=== PATIENT | female | born 1935 | race Caucasian/White ===

== ENCOUNTER 2018-07-23 14:00 | Inpatient (IN) | payer MEDICARE ==
[~2018-07-23] VITALS: Ht 170.2 cm; Wt 75.0 kg
[2018-07-23] MEDS ORDERED: MAGNESIUM HYDROXIDE 2,400 MG/30 ML ORAL.SUSP. PO PRN (17:15)
[2018-07-23] MEDS ORDERED: MAG HYDROX/AL HYDROX/SIMETH 30 ML ORAL.SUSP PO PRN (17:15)
[2018-07-23] MEDS ORDERED: METHYL SALICYLATE/MENTHOL TOPICAL OINTMENT 29GM TUBE. TP PRN (17:15)
[2018-07-23 17:30] VITALS: BP 148/88
[2018-07-23 18:11] LABS: BASO % 1 % (0-3); EOS # 0.1 x10^3/uL (0.0-0.7); EOS % 2 % (0-3); HEMATOCRIT 36.4 % (36.0-47.0); HEMOGLOBIN 12.2 g/dL (12.0-15.5); LYMPH # 1.3 x10^3/uL (1.0-4.8); LYMPH % 23 % (24-48); MEAN CORPUSCULAR HEMOGLOBIN 33 pg (25-35); MEAN CORPUSCULAR HGB CONC 33 g/dL (31-37); MEAN CORPUSCULAR VOLUME 99 fL (79-100); MONO # 1.2 x10^3/uL (0.0-1.1); MONO % 20 % (0-9); NEUT # 3.2 x10^3uL (1.8-7.7); NEUT % 55 % (31-73); PLATELET COUNT 210 x10^3/uL (140-400); RED BLOOD COUNT 3.69 x10^6/uL (3.50-5.40); RED CELL DISTRIBUTION WIDTH 13.3 % (11.5-14.5); WHITE BLOOD COUNT 5.8 x10^3/uL (4.0-11.0)
[2018-07-23 18:25] LABS: ALBUMIN 3.1 g/dL (3.4-5.0); ALBUMIN/GLOBULIN RATIO 0.7 (1.0-1.7); CALCIUM 9.7 mg/dL (8.5-10.1); CREATININE 1.3 mg/dL (0.6-1.0); GFR 39.2; MAGNESIUM 1.8 mg/dL (1.8-2.4); POTASSIUM 3.9 mmol/L (3.5-5.1); TOTAL BILIRUBIN 0.4 mg/dL (0.2-1.0); TOTAL PROTEIN 7.4 g/dL (6.4-8.2)
[2018-07-23] MEDS ORDERED: ANAS1TAB47 PO (18:44)
[2018-07-23] MEDS ORDERED: QUET100T4 PO (21:10)
[2018-07-23] MEDS ORDERED: AMLO5TAB10 PO (21:10)
[2018-07-23] MEDS ORDERED: METO50TA6 PO (21:10)
[2018-07-23] MEDS ORDERED: MIRT15TA3 PO (21:10)
[2018-07-23] MEDS ORDERED: POLY17PO5 PO (21:10)
[2018-07-23] MEDS ORDERED: PANT40TA3 PO (21:10)
[2018-07-23] MEDS ORDERED: LACT1CAP29 PO (21:10)
[2018-07-23] MEDS ORDERED: MELA3TAB2 PO (21:10)
[2018-07-23] MEDS ORDERED: NIFE30TA15 PO (21:10)
[2018-07-23] MEDS ORDERED: CYAN10005 PO (21:10)
[2018-07-23] MEDS ORDERED: ERGO500027 PO (21:10)
[2018-07-23] MEDS ORDERED: DIVA500T4 PO (21:10)
--- NOTE | 2018-07-23 23:46 | PDOC ---
Exam Note: Ayo Note: Please also refer to the separate dictated note~for this date of service dictated separately. Discussed the patient with Nursing staff reviewed the chart.~Reviewed interim history and current functioning. Reviewed vital signs,~Labs/ Radiology~and current medications noted below. Continue current treatment with the changes noted in the dictated addendum note Assessment: Vital Signs: Vital Signs Date Time Temp Pulse Resp B/P (MAP) Pulse Ox O2 Delivery O2 Flow Rate FiO2 07/23/18 17:30 98.6 86 16 148/88 (108) 96 Labs: Laboratory Tests Test 07/23/18 18:00 White Blood Count 5.8 x10^3/uL (4.0-11.0) Red Blood Count 3.69 x10^6/uL (3.50-5.40) Hemoglobin 12.2 g/dL (12.0-15.5) Hematocrit 36.4 % (36.0-47.0) Mean Corpuscular Volume 99 fL (79-100) Mean Corpuscular Hemoglobin 33 pg (25-35) Mean Corpuscular Hemoglobin Concent 33 g/dL (31-37) Red Cell Distribution Width 13.3 % (11.5-14.5) Platelet Count 210 x10^3/uL (140-400) Neutrophils (%) (Auto) 55 % (31-73) Lymphocytes (%) (Auto) 23 % (24-48) L Monocytes (%) (Auto) 20 % (0-9) H Eosinophils (%) (Auto) 2 % (0-3) Basophils (%) (Auto) 1 % (0-3) Neutrophils # (Auto) 3.2 x10^3uL (1.8-7.7) Lymphocytes # (Auto) 1.3 x10^3/uL (1.0-4.8) Monocytes # (Auto) 1.2 x10^3/uL (0.0-1.1) H Eosinophils # (Auto) 0.1 x10^3/uL (0.0-0.7) Basophils # (Auto) 0.0 x10^3/uL (0.0-0.2) Sodium Level 143 mmol/L (136-145) Potassium Level 3.9 mmol/L (3.5-5.1) Chloride Level 106 mmol/L (98-107) Carbon Dioxide Level 27 mmol/L (21-32) Anion Gap 10 (6-14) Blood Urea Nitrogen 19 mg/dL (7-20) Creatinine 1.3 mg/dL (0.6-1.0) H Estimated GFR (Cockcroft-Gault) 39.2 BUN/Creatinine Ratio 15 (6-20) Glucose Level 178 mg/dL (70-99) H Calcium Level 9.7 mg/dL (8.5-10.1) Magnesium Level 1.8 mg/dL (1.8-2.4) Total Bilirubin 0.4 mg/dL (0.2-1.0) Aspartate Amino Transferase (AST) 23 U/L (15-37) Alanine Aminotransferase (ALT) 22 U/L (14-59) Alkaline Phosphatase 55 U/L (46-116) Total Protein 7.4 g/dL (6.4-8.2) Albumin 3.1 g/dL (3.4-5.0) L Albumin/Globulin Ratio 0.7 (1.0-1.7) L Current Medications: Meds: Current Medications Acetaminophen (Tylenol) 650 mg PRN Q6HRS PRN PO PAIN / TEMP; Start 07/23/18 at 17:15 Multi-Ingredient Ointment (Analgesic [place]) 1 kenneth PRN QID PRN TP MUSCLE PAIN; Start 07/23/18 at 17:15 Al Hydroxide/Mg Hydroxide (Mylanta Plus Xs) 15 ml PRN AFTMEALHC PRN PO DYSPEPSIA; Start 07/23/18 at 17:15 Magnesium Hydroxide (Milk Of Magnesia) 2,400 mg PRN QHS PRN PO CONSTIPATION; Start 07/23/18 at 17:15 Divalproex Sodium (Depakote Er) 500 mg QHS PO ; Start 07/23/18 at 22:00 Melatonin 3 mg QHS PO ; Start 07/23/18 at 22:00 Mirtazapine (Remeron) 15 mg QHS PO ; Start 07/23/18 at 22:00 Quetiapine Fumarate (SEROquel) 100 mg QHS PO ; Start 07/23/18 at 22:00 Cyanocobalamin (Vitamin B-12) 1,000 mcg DAILY PO ; Start 07/24/18 at 09:00 Amlodipine Besylate (Norvasc) 5 mg DAILY PO ; Start 07/24/18 at 09:00 Anastrozole (Arimidex) 1 mg DAILY PO ; Start 07/24/18 at 09:00 Vitamin D (Vitamin D3) 50,000 unit WEEKLY PO ; Start 07/30/18 at 09:00 Lactobacillus Rhamnosus (Culturelle) 1 cap DAILY PO ; Start 07/24/18 at 09:00 Metoprolol Tartrate (Lopressor) 50 mg DAILY PO ; Start 07/24/18 at 09:00 Nifedipine (Procardia Xl) 30 mg BID PO ; Start 07/23/18 at 22:00 Pantoprazole Sodium (Protonix) 40 mg DAILY PO ; Start 07/24/18 at 09:00 Polyethylene Glycol (miraLAX) 17 gm DAILY PO ; Start 07/24/18 at 09:00 Active Scripts Active Reported Seroquel (Quetiapine Fumarate) 100 Mg Tablet 100 Mg PO QHS Miralax (Polyethylene Glycol 3350) 17 Gm Powd.pack 17 Gm PO DAILY Protonix (Pantoprazole Sodium) 40 Mg Tablet.dr 40 Mg PO DAILY Nifedipine Er (Nifedipine) 30 Mg Tablet.er 30 Mg PO BID Mirtazapine 15 Mg Tablet 15 Mg PO QHS Metoprolol Tartrate 50 Mg Tablet 50 Mg PO DAILY Melatonin 3 Mg Tablet 3 Mg PO QHS Probiotic (Lactobacillus Combo No.10) 1 Each Capsule 1 Each PO DAILY Vitamin D2 (Ergocalciferol (Vitamin D2)) 50,000 Unit Capsule 50,000 Unit PO WEEKLY MONDAY Depakote Er (Divalproex Sodium) 500 Mg Tab.er.24h 500 Mg PO QHS Vitamin B-12 (Cyanocobalamin (Vitamin B-12)) 1,000 Mcg Tablet 1,000 Mcg PO DAILY 14 Days Give daily for 14 days beginning 08/01/2018 Amlodipine Besylate 5 Mg Tablet 5 Mg PO DAILY Arimidex (Anastrozole) 1 Mg Tablet 1 Mg PO DAILY I have reviewed the current psychotropics carefully including drug interactions. Risk benefit ratio favors no change other than as noted in my dictated progress note. CONNIE CAIN MD July 23, 2018 23:46
[2018-07-24] MEDS: MELATONIN 3 MG TABLET PO SCH ×2 (01:38→19:53)
[2018-07-24] MEDS: QUEtiapine 100 MG TABLET. PO SCH ×2 (01:39→19:55)
[2018-07-24] MEDS: MIRTAZAPINE 15 MG TABLET PO SCH ×2 (01:39→19:54)
[2018-07-24] MEDS: DIVALPROEX ER 500 MG TAB.ER.24H PO SCH ×2 (01:39→19:53)
[2018-07-24 03:10] LABS: THYROXINE 4.9 ug/dL (4.5-12.0)
[2018-07-24 06:43] VITALS: BP 144/78
[2018-07-24 06:47] LABS: BACTERIA,URINE MANY /HPF (0-FEW); BILIRUBIN,URINE NEG (NEG); CLARITY,URINE CLOUDY; COLOR,URINE YELLOW; GLUCOSE,URINE NEG (NEG); NITRITE,URINE NEG (NEG); RBC,URINE 0 /HPF (0-2); SQUAMOUS EPITHELIAL CELL,UR OCC /LPF; UROBILINOGEN,URINE 0.2 mg/dL (0.2 mg/dL); WBC,URINE RARE /HPF (0-4)
[2018-07-24] MEDS: CYANOCOBALAMIN (VITAMIN B-12) 1,000 MCG TABLET. PO SCH (08:57)
[2018-07-24] MEDS: PANTOPRAZOLE 40 MG TABLET. PO SCH (08:58)
[2018-07-24] MEDS: LACTOBACILLUS RHAMNOSUS GG 1 CAPSULE. PO SCH (08:58)
[2018-07-24] MEDS: POLYETHYLENE GLYCOL 3350 17 GM PACKET. PO SCH (08:58)
[2018-07-24] MEDS ORDERED: ANASTROZOLE 1 MG TABLET PO SCH (09:00)
[2018-07-24] MEDS ORDERED: amLODIPine BESYLATE 5 MG TABLET PO SCH (09:00)
[2018-07-24] MEDS ORDERED: METOPROLOL TART IMMED RELEASE 50 MG TABLET PO SCH (09:00)
[2018-07-24 13:12] LABS: HEMOGLOBIN A1C 6.2 % (4.8-5.6)
[2018-07-24 13:15] LABS: THYROID STIM HORMONE (TSH) 4.984 uIU/mL (0.358-3.740)
[2018-07-24 16:27] VITALS: BP 117/75
--- NOTE | 2018-07-24 16:37 | RAD ---
CT Head without contrast 07/24/2018 3:22 PM Indication: Altered mental status Comparison: None Technique: Multidetector CT imaging of the head was performed without contrast. Findings: No intracranial hemorrhage is seen. No evidence of acute territorial infarct is seen. Note that CT is limited in sensitivity for acute ischemia. Senescent atrophic changes noted. There is extensive patchy periventricular and deep white matter hypoattenuation which is nonspecific, but most commonly relates to chronic small vessel disease. No abnormal extra axial fluid collection is identified. No mass effect or midline shift is seen. No acute osseous abnormalities are seen. Impression: 1. No acute intracranial process identified. 2. Age-related atrophy. Extensive changes of chronic small vessel disease as described. Finding could mask small area of acute ischemia. If there is continued clinical concern for acute ischemia, MRI offers more sensitive evaluation. CT DOSING PQRS STATEMENT: One or more of the following individualized dose reduction techniques were utilized for this examination: 1. Automated exposure control 2. Adjustment of the mA and/or kV according to patient size 3. Use of iterative reconstruction technique Electronically signed by: Elias Wise MD (07/24/2018 4:34 PM) [id number]
[2018-07-24] MEDS: METOPROLOL TART IMMED RELEASE 25 MG TABLET PO SCH (19:54)
--- NOTE | 2018-07-24 20:07 | PDOC ---
Exam Note: Ayo Note: Admission Date: July 23, 2018 at 16:28 * A recertification for continued Inpatient Psychiatric Admission must be done on Day 12, Day 18 and Day 30. Please also refer to the separate dictated note~for this date of service dictated separately.~Patient seen individually. Discussed the patient with Nursing staff reviewed the chart.~Reviewed interim history and current functioning. Reviewed vital signs,~Labs/ Radiology~and current medications noted below. Continue current treatment with the changes noted in the dictated addendum note Assessment: Vital Signs: Vital Signs Date Time Temp Pulse Resp B/P (MAP) Pulse Ox O2 Delivery O2 Flow Rate FiO2 07/24/18 19:56 73 117/75 07/24/18 16:27 97.8 20 98 I&O Intake and Output 07/24/18 07:00 Intake Total 120 ml Balance 120 ml Intake Oral 120 ml # Voids 1 # Bowel Movements 1 Labs: Laboratory Tests Test 07/24/18 06:00 Urine Collection Type Unknown Urine Color Yellow Urine Clarity Cloudy Urine pH 6.5 Urine Specific [place] 1.010 Urine Protein Neg (NEG-TRACE) Urine Glucose (UA) Neg mg/dL (NEG) Urine Ketones (Stick) Neg mg/dL (NEG) Urine Blood Neg (NEG) Urine Nitrite Neg (NEG) Urine Bilirubin Neg (NEG) Urine Urobilinogen Dipstick 0.2 mg/dL (0.2 mg/dL) Urine Leukocyte Esterase Neg (NEG) Urine RBC 0 /HPF (0-2) Urine WBC Rare /HPF (0-4) Urine Squamous Epithelial Cells Occ /LPF Urine Bacteria Many /HPF (0-FEW) Current Medications: Meds: Current Medications Acetaminophen (Tylenol) 650 mg PRN Q6HRS PRN PO PAIN / TEMP; Start 07/23/18 at 17:15 Multi-Ingredient Ointment (Analgesic [place]) 1 kenneth PRN QID PRN TP MUSCLE PAIN; Start 07/23/18 at 17:15 Al Hydroxide/Mg Hydroxide (Mylanta Plus Xs) 15 ml PRN AFTMEALHC PRN PO DYSPEPSIA; Start 07/23/18 at 17:15 Magnesium Hydroxide (Milk Of Magnesia) 2,400 mg PRN QHS PRN PO CONSTIPATION; Start 07/23/18 at 17:15 Divalproex Sodium (Depakote Er) 500 mg QHS PO Last administered on 07/24/18 19:53; Start 07/23/18 at 22:00 Melatonin 3 mg QHS PO Last administered on 07/24/18 19:53; Start 07/23/18 at 22:00 Mirtazapine (Remeron) 15 mg QHS PO Last administered on 07/24/18 19:54; Start 07/23/18 at 22:00 Quetiapine Fumarate (SEROquel) 100 mg QHS PO Last administered on 07/24/18 19:55; Start 07/23/18 at 22:00 Cyanocobalamin (Vitamin B-12) 1,000 mcg DAILY PO Last administered on 07/24/18 08:57; Start 07/24/18 at 09:00 Amlodipine Besylate (Norvasc) 5 mg DAILY PO Last administered on 07/24/18 08:57; Start 07/24/18 at 09:00; Stop 07/24/18 at 15:21; Status DC Anastrozole (Arimidex) 1 mg DAILY PO Last administered on 07/24/18at 09:00; Start 07/24/18 at 09:00 Vitamin D (Vitamin D3) 50,000 unit WEEKLY PO ; Start 07/30/18 at 09:00 Lactobacillus Rhamnosus (Culturelle) 1 cap DAILY PO Last administered on 07/24/18at 08:58; Start 07/24/18 at 09:00 Metoprolol Tartrate (Lopressor) 50 mg DAILY PO Last administered on 07/24/18 08:57; Start 07/24/18 at 09:00; Stop 07/24/18 at 15:22; Status DC Nifedipine (Procardia Xl) 30 mg BID PO Last administered on 07/24/18 08:56; Start 07/23/18 at 22:00; Stop 07/24/18 at 15:22; Status DC Pantoprazole Sodium (Protonix) 40 mg DAILY PO Last administered on 07/24/18 08:58; Start 07/24/18 at 09:00 Polyethylene Glycol (miraLAX) 17 gm DAILY PO Last administered on 07/24/18 08:58; Start 07/24/18 at 09:00 Metoprolol Tartrate (Lopressor) 25 mg BID PO Last administered on 07/24/18 19:54; Start 07/24/18 at 21:00 Nifedipine (Procardia Xl) 60 mg BID PO Last administered on 07/24/18at 19:56; Start 07/24/18 at 21:00 Active Scripts Active Reported Seroquel (Quetiapine Fumarate) 100 Mg Tablet 100 Mg PO QHS Miralax (Polyethylene Glycol 3350) 17 Gm Powd.pack 17 Gm PO DAILY Protonix (Pantoprazole Sodium) 40 Mg Tablet.dr 40 Mg PO DAILY Nifedipine Er (Nifedipine) 30 Mg Tablet.er 30 Mg PO BID Mirtazapine 15 Mg Tablet 15 Mg PO QHS Metoprolol Tartrate 50 Mg Tablet 50 Mg PO DAILY Melatonin 3 Mg Tablet 3 Mg PO QHS Probiotic (Lactobacillus Combo No.10) 1 Each Capsule 1 Each PO DAILY Vitamin D2 (Ergocalciferol (Vitamin D2)) 50,000 Unit Capsule 50,000 Unit PO WEEKLY MONDAY Depakote Er (Divalproex Sodium) 500 Mg Tab.er.24h 500 Mg PO QHS Vitamin B-12 (Cyanocobalamin (Vitamin B-12)) 1,000 Mcg Tablet 1,000 Mcg PO DAILY 14 Days Give daily for 14 days beginning 08/01/2018 Amlodipine Besylate 5 Mg Tablet 5 Mg PO DAILY Arimidex (Anastrozole) 1 Mg Tablet 1 Mg PO DAILY I have reviewed the current psychotropics carefully including drug interactions. Risk benefit ratio favors no change other than as noted in my dictated progress note. CONNIE CAIN MD July 24, 2018 20:07
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
[2018-07-25 06:28] VITALS: BP 115/70
[2018-07-25] MEDS: PANTOPRAZOLE 40 MG TABLET. PO SCH (08:45)
[2018-07-25] MEDS: CYANOCOBALAMIN (VITAMIN B-12) 1,000 MCG TABLET. PO SCH (08:45)
[2018-07-25] MEDS: LACTOBACILLUS RHAMNOSUS GG 1 CAPSULE. PO SCH (08:45)
[2018-07-25] MEDS: METOPROLOL TART IMMED RELEASE 25 MG TABLET PO SCH ×2 (08:46→20:26)
[2018-07-25] MEDS: POLYETHYLENE GLYCOL 3350 17 GM PACKET. PO SCH (08:46)
[2018-07-25 16:14] VITALS: BP 101/70
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
[2018-07-25] MEDS: MIRTAZAPINE 15 MG TABLET PO SCH (20:25)
[2018-07-25] MEDS: QUEtiapine 100 MG TABLET. PO SCH (20:25)
[2018-07-25] MEDS: DIVALPROEX ER 500 MG TAB.ER.24H PO SCH (20:25)
[2018-07-25] MEDS: MELATONIN 3 MG TABLET PO SCH (20:25)
--- NOTE | 2018-07-25 22:13 | PDOC ---
Exam Note: Ayo Note: Please also refer to the separate dictated note~for this date of service dictated separately.~Patient seen individually. Discussed the patient with Nursing staff reviewed the chart.~Reviewed interim history and current functioning. Reviewed vital signs,~Labs/ Radiology~and current medications noted below. Continue current treatment with the changes noted in the dictated addendum note Assessment: Vital Signs: Vital Signs Date Time Temp Pulse Resp B/P (MAP) Pulse Ox O2 Delivery O2 Flow Rate FiO2 07/25/18 20:28 72 102/61 07/25/18 16:14 97.2 16 96 I&O Intake and Output 07/25/18 07:00 Intake Total 1560 ml Balance 1560 ml Intake Oral 1560 ml Current Medications: Meds: Current Medications Acetaminophen (Tylenol) 650 mg PRN Q6HRS PRN PO PAIN / TEMP; Start 07/23/18 at 17:15 Multi-Ingredient Ointment (Analgesic [place]) 1 kenneth PRN QID PRN TP MUSCLE PAIN; Start 07/23/18 at 17:15 Al Hydroxide/Mg Hydroxide (Mylanta Plus Xs) 15 ml PRN AFTMEALHC PRN PO DYSPEPSIA; Start 07/23/18 at 17:15 Magnesium Hydroxide (Milk Of Magnesia) 2,400 mg PRN QHS PRN PO CONSTIPATION; Start 07/23/18 at 17:15 Divalproex Sodium (Depakote Er) 500 mg QHS PO Last administered on 07/25/18at 20:25; Start 07/23/18 at 22:00 Melatonin 3 mg QHS PO Last administered on 07/25/18at 20:25; Start 07/23/18 at 22:00 Mirtazapine (Remeron) 15 mg QHS PO Last administered on 07/25/18at 20:25; Start 07/23/18 at 22:00 Quetiapine Fumarate (SEROquel) 100 mg QHS PO Last administered on 07/25/18at 20:25; Start 07/23/18 at 22:00 Cyanocobalamin (Vitamin B-12) 1,000 mcg DAILY PO Last administered on 07/25/18at 08:45; Start 07/24/18 at 09:00 Amlodipine Besylate (Norvasc) 5 mg DAILY PO Last administered on 07/24/18at 08:57; Start 07/24/18 at 09:00; Stop 07/24/18 at 15:21; Status DC Anastrozole (Arimidex) 1 mg DAILY PO Last administered on 07/24/18at 09:00; Start 07/24/18 at 09:00; Stop 07/24/18 at 22:35; Status DC Vitamin D (Vitamin D3) 50,000 unit WEEKLY PO ; Start 07/30/18 at 09:00 Lactobacillus Rhamnosus (Culturelle) 1 cap DAILY PO Last administered on 07/25/18at 08:45; Start 07/24/18 at 09:00 Metoprolol Tartrate (Lopressor) 50 mg DAILY PO Last administered on 07/24/18at 08:57; Start 07/24/18 at 09:00; Stop 07/24/18 at 15:22; Status DC Nifedipine (Procardia Xl) 30 mg BID PO Last administered on 07/24/18at 08:56; Start 07/23/18 at 22:00; Stop 07/24/18 at 15:22; Status DC Pantoprazole Sodium (Protonix) 40 mg DAILY PO Last administered on 07/25/18at 08:45; Start 07/24/18 at 09:00 Polyethylene Glycol (miraLAX) 17 gm DAILY PO Last administered on 07/25/18at 08:46; Start 07/24/18 at 09:00 Metoprolol Tartrate (Lopressor) 25 mg BID PO Last administered on 07/25/18at 20:26; Start 07/24/18 at 21:00 Nifedipine (Procardia Xl) 60 mg BID PO Last administered on 07/25/18at 20:28; Start 07/24/18 at 21:00 Quetiapine Fumarate (SEROquel) 25 mg BID92 PO ; Start 07/26/18 at 09:00 Olanzapine (ZyPREXA ZYDIS) 2.5 mg PRN Q2HR PRN PO agitation/psychosis; Start 07/25/18 at 17:30 Active Scripts Active Reported Seroquel (Quetiapine Fumarate) 100 Mg Tablet 100 Mg PO QHS Miralax (Polyethylene Glycol 3350) 17 Gm Powd.pack 17 Gm PO DAILY Protonix (Pantoprazole Sodium) 40 Mg Tablet.dr 40 Mg PO DAILY Nifedipine Er (Nifedipine) 30 Mg Tablet.er 30 Mg PO BID Mirtazapine 15 Mg Tablet 15 Mg PO QHS Metoprolol Tartrate 50 Mg Tablet 50 Mg PO DAILY Melatonin 3 Mg Tablet 3 Mg PO QHS Probiotic (Lactobacillus Combo No.10) 1 Each Capsule 1 Each PO DAILY Vitamin D2 (Ergocalciferol (Vitamin D2)) 50,000 Unit Capsule 50,000 Unit PO WEEKLY MONDAY Depakote Er (Divalproex Sodium) 500 Mg Tab.er.24h 500 Mg PO QHS Vitamin B-12 (Cyanocobalamin (Vitamin B-12)) 1,000 Mcg Tablet 1,000 Mcg PO DAILY 14 Days Give daily for 14 days beginning 08/01/2018 Amlodipine Besylate 5 Mg Tablet 5 Mg PO DAILY Arimidex (Anastrozole) 1 Mg Tablet 1 Mg PO DAILY I have reviewed the current psychotropics carefully including drug interactions. Risk benefit ratio favors no change other than as noted in my dictated progress note. Diagnosis: Problems: (1) Anxiety disorder (2) Dementia, vascular, with delusions (3) Dementia, vascular, with depression (4) Dementia in Alzheimer's disease with delusions (5) Dementia in Alzheimer's disease with depression (6) Impulse control disorder CONNIE CAIN MD July 25, 2018 22:13
[2018-07-26 05:55] VITALS: BP 111/58
[2018-07-26 08:14] LABS: VAL ACID 40 mcg/mL (50-100)
[2018-07-26] MEDS: PANTOPRAZOLE 40 MG TABLET. PO SCH (09:15)
[2018-07-26] MEDS: CYANOCOBALAMIN (VITAMIN B-12) 1,000 MCG TABLET. PO SCH (09:15)
[2018-07-26] MEDS: LACTOBACILLUS RHAMNOSUS GG 1 CAPSULE. PO SCH (09:15)
[2018-07-26] MEDS: METOPROLOL TART IMMED RELEASE 25 MG TABLET PO SCH ×2 (09:15→19:21)
[2018-07-26] MEDS: POLYETHYLENE GLYCOL 3350 17 GM PACKET. PO SCH (09:15)
[2018-07-26] MEDS: QUEtiapine 25 MG TABLET. PO SCH ×2 (09:16→13:19)
[2018-07-26] MEDS: DIVALPROEX 125 MG CAP.SPRINK PO SCH (13:19)
[2018-07-26 15:43] VITALS: BP 112/70
[2018-07-26] MEDS: MELATONIN 3 MG TABLET PO SCH (19:20)
[2018-07-26] MEDS: DIVALPROEX ER 500 MG TAB.ER.24H PO SCH (19:21)
[2018-07-26] MEDS: MIRTAZAPINE 15 MG TABLET PO SCH (19:22)
[2018-07-26] MEDS: QUEtiapine 100 MG TABLET. PO SCH (19:22)
--- NOTE | 2018-07-26 22:41 | PDOC ---
Exam Note: Ayo Note: Please also refer to the separate dictated note~for this date of service dictated separately.~Patient seen individually. Discussed the patient with Nursing staff reviewed the chart.~Reviewed interim history and current functioning. Reviewed vital signs,~Labs/ Radiology~and current medications noted below. Continue current treatment with the changes noted in the dictated addendum note Assessment: Vital Signs: Vital Signs Date Time Temp Pulse Resp B/P (MAP) Pulse Ox O2 Delivery O2 Flow Rate FiO2 07/26/18 19:22 63 112/70 07/26/18 15:43 98.2 16 95 I&O Intake and Output 07/26/18 06:59 Intake Total 840 ml Balance 840 ml Intake Oral 840 ml # Voids 1 # Bowel Movements 2 Labs: Laboratory Tests Test 07/26/18 07:31 Valproic Acid Level 40 mcg/mL (50-100) L Valproic Acid Last Dose Date 07/25/2018 Valproic Acid Last Dose Time 2100 Current Medications: Meds: Current Medications Acetaminophen (Tylenol) 650 mg PRN Q6HRS PRN PO PAIN / TEMP; Start 07/23/18 at 17:15 Multi-Ingredient Ointment (Analgesic [place]) 1 kenneth PRN QID PRN TP MUSCLE PAIN; Start 07/23/18 at 17:15 Al Hydroxide/Mg Hydroxide (Mylanta Plus Xs) 15 ml PRN AFTMEALHC PRN PO DYSPEPSIA; Start 07/23/18 at 17:15 Magnesium Hydroxide (Milk Of Magnesia) 2,400 mg PRN QHS PRN PO CONSTIPATION; Start 07/23/18 at 17:15 Divalproex Sodium (Depakote Er) 500 mg QHS PO Last administered on 07/26/18at 19:21; Start 07/23/18 at 22:00 Melatonin 3 mg QHS PO Last administered on 07/26/18at 19:20; Start 07/23/18 at 22:00 Mirtazapine (Remeron) 15 mg QHS PO Last administered on 07/26/18at 19:22; Start 07/23/18 at 22:00 Quetiapine Fumarate (SEROquel) 100 mg QHS PO Last administered on 07/26/18at 19:22; Start 07/23/18 at 22:00 Cyanocobalamin (Vitamin B-12) 1,000 mcg DAILY PO Last administered on 07/26/18 09:15; Start 07/24/18 at 09:00 Amlodipine Besylate (Norvasc) 5 mg DAILY PO Last administered on 07/24/18 08:57; Start 07/24/18 at 09:00; Stop 07/24/18 at 15:21; Status DC Anastrozole (Arimidex) 1 mg DAILY PO Last administered on 07/24/18 09:00; Start 07/24/18 at 09:00; Stop 07/24/18 at 22:35; Status DC Vitamin D (Vitamin D3) 50,000 unit WEEKLY PO ; Start 07/30/18 at 09:00 Lactobacillus Rhamnosus (Culturelle) 1 cap DAILY PO Last administered on 07/26/18 09:15; Start 07/24/18 at 09:00 Metoprolol Tartrate (Lopressor) 50 mg DAILY PO Last administered on 07/24/18 08:57; Start 07/24/18 at 09:00; Stop 07/24/18 at 15:22; Status DC Nifedipine (Procardia Xl) 30 mg BID PO Last administered on 07/24/18 08:56; Start 07/23/18 at 22:00; Stop 07/24/18 at 15:22; Status DC Pantoprazole Sodium (Protonix) 40 mg DAILY PO Last administered on 07/26/18 09:15; Start 07/24/18 at 09:00 Polyethylene Glycol (miraLAX) 17 gm DAILY PO Last administered on 07/26/18at 09:15; Start 07/24/18 at 09:00 Metoprolol Tartrate (Lopressor) 25 mg BID PO Last administered on 07/26/18 19:21; Start 07/24/18 at 21:00 Nifedipine (Procardia Xl) 60 mg BID PO Last administered on 07/26/18 19:22; Start 07/24/18 at 21:00 Quetiapine Fumarate (SEROquel) 25 mg BID92 PO Last administered on 07/26/18at 13:19; Start 07/26/18 at 09:00 Olanzapine (ZyPREXA ZYDIS) 2.5 mg PRN Q2HR PRN PO agitation/psychosis; Start 07/25/18 at 17:30 Divalproex Sodium (Depakote Sprinkles) 125 mg 0900,1300 PO Last administered on 07/26/18at 13:19; Start 07/26/18 at 13:00 Active Scripts Active Reported Seroquel (Quetiapine Fumarate) 100 Mg Tablet 100 Mg PO QHS Miralax (Polyethylene Glycol 3350) 17 Gm Powd.pack 17 Gm PO DAILY Protonix (Pantoprazole Sodium) 40 Mg Tablet.dr 40 Mg PO DAILY Nifedipine Er (Nifedipine) 30 Mg Tablet.er 30 Mg PO BID Mirtazapine 15 Mg Tablet 15 Mg PO QHS Metoprolol Tartrate 50 Mg Tablet 50 Mg PO DAILY Melatonin 3 Mg Tablet 3 Mg PO QHS Probiotic (Lactobacillus Combo No.10) 1 Each Capsule 1 Each PO DAILY Vitamin D2 (Ergocalciferol (Vitamin D2)) 50,000 Unit Capsule 50,000 Unit PO WEEKLY MONDAY Depakote Er (Divalproex Sodium) 500 Mg Tab.er.24h 500 Mg PO QHS Vitamin B-12 (Cyanocobalamin (Vitamin B-12)) 1,000 Mcg Tablet 1,000 Mcg PO DAILY 14 Days Give daily for 14 days beginning 08/01/2018 Amlodipine Besylate 5 Mg Tablet 5 Mg PO DAILY Arimidex (Anastrozole) 1 Mg Tablet 1 Mg PO DAILY I have reviewed the current psychotropics carefully including drug interactions. Risk benefit ratio favors no change other than as noted in my dictated progress note. Diagnosis: Problems: (1) Anxiety disorder (2) Dementia, vascular, with delusions (3) Dementia, vascular, with depression (4) Dementia in Alzheimer's disease with delusions (5) Dementia in Alzheimer's disease with depression (6) Impulse control disorder CONNIE CAIN MD July 26, 2018 22:41
[2018-07-27 06:07] VITALS: BP 113/66
[2018-07-27] MEDS: POLYETHYLENE GLYCOL 3350 17 GM PACKET. PO SCH (09:20)
[2018-07-27] MEDS: PANTOPRAZOLE 40 MG TABLET. PO SCH (09:20)
[2018-07-27] MEDS: METOPROLOL TART IMMED RELEASE 25 MG TABLET PO SCH ×2 (09:20→19:49)
[2018-07-27] MEDS: CYANOCOBALAMIN (VITAMIN B-12) 1,000 MCG TABLET. PO SCH (09:20)
[2018-07-27] MEDS: DIVALPROEX 125 MG CAP.SPRINK PO SCH ×2 (09:20→14:02)
[2018-07-27] MEDS: LACTOBACILLUS RHAMNOSUS GG 1 CAPSULE. PO SCH (09:20)
[2018-07-27] MEDS: QUEtiapine 25 MG TABLET. PO SCH ×2 (09:20→14:02)
[2018-07-27 16:08] VITALS: BP 127/78
[2018-07-27] MEDS: QUEtiapine 100 MG TABLET. PO SCH (19:48)
[2018-07-27] MEDS: MELATONIN 3 MG TABLET PO SCH (19:48)
[2018-07-27] MEDS: MIRTAZAPINE 15 MG TABLET PO SCH (19:49)
[2018-07-27] MEDS: DIVALPROEX ER 500 MG TAB.ER.24H PO SCH (19:49)
[2018-07-27] MEDS: AMOXICILLIN 250 MG CAPSULE PO SCH (19:51)
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
--- NOTE | 2018-07-27 22:46 | PDOC ---
Exam Note: Ayo Note: Please also refer to the separate dictated note~for this date of service dictated separately.~Patient seen individually. Discussed the patient with Nursing staff reviewed the chart.~Reviewed interim history and current functioning. Reviewed vital signs,~Labs/ Radiology~and current medications noted below. Continue current treatment with the changes noted in the dictated addendum note Assessment: Vital Signs: Vital Signs Date Time Temp Pulse Resp B/P (MAP) Pulse Ox O2 Delivery O2 Flow Rate FiO2 07/27/18 19:50 84 127/78 07/27/18 16:08 97.9 95 07/27/18 06:07 18 I&O Intake and Output 07/27/18 06:59 Intake Total 720 ml Balance 720 ml Intake Oral 720 ml # Voids 1 Current Medications: Meds: Current Medications Acetaminophen (Tylenol) 650 mg PRN Q6HRS PRN PO PAIN / TEMP; Start 07/23/18 at 17:15 Multi-Ingredient Ointment (Analgesic [place]) 1 kenneth PRN QID PRN TP MUSCLE PAIN; Start 07/23/18 at 17:15 Al Hydroxide/Mg Hydroxide (Mylanta Plus Xs) 15 ml PRN AFTMEALHC PRN PO DYSPEPSIA; Start 07/23/18 at 17:15 Magnesium Hydroxide (Milk Of Magnesia) 2,400 mg PRN QHS PRN PO CONSTIPATION; Start 07/23/18 at 17:15 Divalproex Sodium (Depakote Er) 500 mg QHS PO Last administered on 07/27/18at 19:49; Start 07/23/18 at 22:00 Melatonin 3 mg QHS PO Last administered on 07/27/18 19:48; Start 07/23/18 at 22:00 Mirtazapine (Remeron) 15 mg QHS PO Last administered on 07/27/18 19:49; Start 07/23/18 at 22:00 Quetiapine Fumarate (SEROquel) 100 mg QHS PO Last administered on 07/27/18at 19:48; Start 07/23/18 at 22:00 Cyanocobalamin (Vitamin B-12) 1,000 mcg DAILY PO Last administered on 07/27/18at 09:20; Start 07/24/18 at 09:00 Amlodipine Besylate (Norvasc) 5 mg DAILY PO Last administered on 07/24/18 08:57; Start 07/24/18 at 09:00; Stop 07/24/18 at 15:21; Status DC Anastrozole (Arimidex) 1 mg DAILY PO Last administered on 07/24/18 09:00; Start 07/24/18 at 09:00; Stop 07/24/18 at 22:35; Status DC Vitamin D (Vitamin D3) 50,000 unit WEEKLY PO ; Start 07/30/18 at 09:00 Lactobacillus Rhamnosus (Culturelle) 1 cap DAILY PO Last administered on 09:20; Start 07/24/18 at 09:00 Metoprolol Tartrate (Lopressor) 50 mg DAILY PO Last administered on 07/24/18 08:57; Start 07/24/18 at 09:00; Stop 07/24/18 at 15:22; Status DC Nifedipine (Procardia Xl) 30 mg BID PO Last administered on 07/24/18 08:56; Start 07/23/18 at 22:00; Stop 07/24/18 at 15:22; Status DC Pantoprazole Sodium (Protonix) 40 mg DAILY PO Last administered on 07/27/18 09:20; Start 07/24/18 at 09:00 Polyethylene Glycol (miraLAX) 17 gm DAILY PO Last administered on 07/27/18 09 :20; Start 07/24/18 at 09:00 Metoprolol Tartrate (Lopressor) 25 mg BID PO Last administered on 07/27/18 19:49; Start 07/24/18 at 21:00 Nifedipine (Procardia Xl) 60 mg BID PO Last administered on 07/27/18 19:50; Start 07/24/18 at 21:00 Quetiapine Fumarate (SEROquel) 25 mg BID92 PO Last administered on 07/27/18 14:02; Start 07/26/18 at 09:00 Olanzapine (ZyPREXA ZYDIS) 2.5 mg PRN Q2HR PRN PO agitation/psychosis Last administered on 07/27/18 19:51; Start 07/25/18 at 17:30 Divalproex Sodium (Depakote Sprinkles) 125 mg 0900,1300 PO Last administered on 07/27/18 14:02; Start 07/26/18 at 13:00 Amoxicillin (Amoxil) 250 mg BID PO Last administered on 07/27/18at 19:51; Start 07/27/18 at 21:00; Stop 08/03/18 at 20:59 Active Scripts Active Reported Seroquel (Quetiapine Fumarate) 100 Mg Tablet 100 Mg PO QHS Miralax (Polyethylene Glycol 3350) 17 Gm Powd.pack 17 Gm PO DAILY Protonix (Pantoprazole Sodium) 40 Mg Tablet.dr 40 Mg PO DAILY Nifedipine Er (Nifedipine) 30 Mg Tablet.er 30 Mg PO BID Mirtazapine 15 Mg Tablet 15 Mg PO QHS Metoprolol Tartrate 50 Mg Tablet 50 Mg PO DAILY Melatonin 3 Mg Tablet 3 Mg PO QHS Probiotic (Lactobacillus Combo No.10) 1 Each Capsule 1 Each PO DAILY Vitamin D2 (Ergocalciferol (Vitamin D2)) 50,000 Unit Capsule 50,000 Unit PO WEEKLY MONDAY Depakote Er (Divalproex Sodium) 500 Mg Tab.er.24h 500 Mg PO QHS Vitamin B-12 (Cyanocobalamin (Vitamin B-12)) 1,000 Mcg Tablet 1,000 Mcg PO DAILY 14 Days Give daily for 14 days beginning 08/01/2018 Amlodipine Besylate 5 Mg Tablet 5 Mg PO DAILY Arimidex (Anastrozole) 1 Mg Tablet 1 Mg PO DAILY I have reviewed the current psychotropics carefully including drug interactions. Risk benefit ratio favors no change other than as noted in my dictated progress note. Diagnosis: Problems: (1) Anxiety disorder (2) Dementia, vascular, with delusions (3) Dementia, vascular, with depression (4) Dementia in Alzheimer's disease with delusions (5) Dementia in Alzheimer's disease with depression (6) Impulse control disorder CONNIE CAIN MD July 27, 2018 22:46
--- NOTE | 2018-07-28 01:03 | PN ---
DATE: 07/26/2018 This is a late entry for 07/26/2018 covers elements not covered in my initial note. SUBJECTIVE: I met with the patient in the evening of 07/26/2018, staffed at a treatment team meeting in the morning. The patient's daughter, Nancy attended the treatment team meeting. Reviewed the patient's history, diagnosis, treatment, prognosis at length. The patient slept 6-3/4 hours previous night. Reviewed her past recent hospitalizations at [facility] and [facility] and symptoms worsening over the past 2 months. She appears constantly anxious, agitated, manic. Appetite 100%, slept about 5 hours average. UA has reflux to culture, restless, tearful, aggressive, but not trying to hurt herself. REVIEW OF SYSTEMS: No CV, , pulmonary, eye, ENT system symptoms on review. Reliability poor. MENTAL STATUS EXAM: Oriented to herself. Insight, judgment, recent and remote memory, attention, concentration, fund of knowledge poor, consistent with her diagnoses. IMPRESSION: Major neurocognitive disorder, Alzheimer, vascular with delusion, depression, behavioral disturbance; anxiety disorder, unspecified; impulse control disorder, unspecified; probable urinary tract infection. PLAN: Treat the UTI if culture positive. Maintain rest of the psychotropics for now including Depakote, melatonin, Remeron, Seroquel, Zyprexa p.r.n. Seroquel has been increased. May need to add further dosages during the day depending on her progress. CONNIE CAIN MD DR: SUNNY/oni JOB#: [id number] / [id number]
[2018-07-28 06:21] VITALS: BP 121/66
[2018-07-28] MEDS: LACTOBACILLUS RHAMNOSUS GG 1 CAPSULE. PO SCH (10:37)
[2018-07-28] MEDS: POLYETHYLENE GLYCOL 3350 17 GM PACKET. PO SCH (10:37)
[2018-07-28] MEDS: DIVALPROEX 125 MG CAP.SPRINK PO SCH ×2 (10:37→13:44)
[2018-07-28] MEDS: METOPROLOL TART IMMED RELEASE 25 MG TABLET PO SCH ×2 (10:37→20:45)
[2018-07-28] MEDS: AMOXICILLIN 250 MG CAPSULE PO SCH ×2 (10:37→20:44)
[2018-07-28] MEDS: CYANOCOBALAMIN (VITAMIN B-12) 1,000 MCG TABLET. PO SCH (10:38)
[2018-07-28] MEDS: PANTOPRAZOLE 40 MG TABLET. PO SCH (10:38)
[2018-07-28] MEDS: QUEtiapine 25 MG TABLET. PO SCH ×2 (10:38→13:45)
[2018-07-28 15:45] VITALS: BP 118/70
[2018-07-28] MEDS: MIRTAZAPINE 15 MG TABLET PO SCH (20:45)
[2018-07-28] MEDS: DIVALPROEX ER 500 MG TAB.ER.24H PO SCH (20:46)
[2018-07-28] MEDS: QUEtiapine 100 MG TABLET. PO SCH (20:46)
[2018-07-28] MEDS: MELATONIN 3 MG TABLET PO SCH (20:46)
--- NOTE | 2018-07-28 22:43 | PDOC ---
Exam Note: Ayo Note: Please also refer to the separate dictated note~for this date of service dictated separately.~Patient seen individually. Discussed the patient with Nursing staff reviewed the chart.~Reviewed interim history and current functioning. Reviewed vital signs,~Labs/ Radiology~and current medications noted below. Continue current treatment with the changes noted in the dictated addendum note Assessment: Vital Signs: Vital Signs Date Time Temp Pulse Resp B/P (MAP) Pulse Ox O2 Delivery O2 Flow Rate FiO2 07/28/18 20:49 80 123/70 07/28/18 15:45 97.3 16 94 07/28/18 06:21 Room Air I&O Intake and Output 07/28/18 06:59 Intake Total 960 ml Balance 960 ml Intake Oral 960 ml Current Medications: Meds: Current Medications Acetaminophen (Tylenol) 650 mg PRN Q6HRS PRN PO PAIN / TEMP; Start 07/23/18 at 17:15 Multi-Ingredient Ointment (Analgesic [place]) 1 kenneth PRN QID PRN TP MUSCLE PAIN; Start 07/23/18 at 17:15 Al Hydroxide/Mg Hydroxide (Mylanta Plus Xs) 15 ml PRN AFTMEALHC PRN PO DYSPEPSIA; Start 07/23/18 at 17:15 Magnesium Hydroxide (Milk Of Magnesia) 2,400 mg PRN QHS PRN PO CONSTIPATION; Start 07/23/18 at 17:15 Divalproex Sodium (Depakote Er) 500 mg QHS PO Last administered on 07/28/18at 20:46; Start 07/23/18 at 22:00 Melatonin 3 mg QHS PO Last administered on 07/28/18 20:46; Start 07/23/18 at 22:00 Mirtazapine (Remeron) 15 mg QHS PO Last administered on 07/28/18 20:45; Start 07/23/18 at 22:00 Quetiapine Fumarate (SEROquel) 100 mg QHS PO Last administered on 07/28/18 20:46; Start 07/23/18 at 22:00 Cyanocobalamin (Vitamin B-12) 1,000 mcg DAILY PO Last administered on 07/28/18at 10:38; Start 07/24/18 at 09:00 Amlodipine Besylate (Norvasc) 5 mg DAILY PO Last administered on 07/24/18 08:57; Start 07/24/18 at 09:00; Stop 07/24/18 at 15:21; Status DC Anastrozole (Arimidex) 1 mg DAILY PO Last administered on 07/24/18 09:00; Start 07/24/18 at 09:00; Stop 07/24/18 at 22:35; Status DC Vitamin D (Vitamin D3) 50,000 unit WEEKLY PO ; Start 07/30/18 at 09:00 Lactobacillus Rhamnosus (Culturelle) 1 cap DAILY PO Last administered on 10:37; Start 07/24/18 at 09:00 Metoprolol Tartrate (Lopressor) 50 mg DAILY PO Last administered on 07/24/18 08:57; Start 07/24/18 at 09:00; Stop 07/24/18 at 15:22; Status DC Nifedipine (Procardia Xl) 30 mg BID PO Last administered on 07/24/18 08:56; Start 07/23/18 at 22:00; Stop 07/24/18 at 15:22; Status DC Pantoprazole Sodium (Protonix) 40 mg DAILY PO Last administered on 07/28/18 10:38; Start 07/24/18 at 09:00 Polyethylene Glycol (miraLAX) 17 gm DAILY PO Last administered on 07/28/18 10:37; Start 07/24/18 at 09:00 Metoprolol Tartrate (Lopressor) 25 mg BID PO Last administered on 07/28/18 20:45; Start 07/24/18 at 21:00 Nifedipine (Procardia Xl) 60 mg BID PO Last administered on 07/28/18 20:49; Start 07/24/18 at 21:00 Quetiapine Fumarate (SEROquel) 25 mg BID92 PO Last administered on 07/28/18 13:45; Start 07/26/18 at 09:00 Olanzapine (ZyPREXA ZYDIS) 2.5 mg PRN Q2HR PRN PO agitation/psychosis Last administered on 07/27/18 19:51; Start 07/25/18 at 17:30 Divalproex Sodium (Depakote Sprinkles) 125 mg 0900,1300 PO Last administered on 07/28/18 13:44; Start 07/26/18 at 13:00 Amoxicillin (Amoxil) 250 mg BID PO Last administered on 07/28/18at 20:44; Start 07/27/18 at 21:00; Stop 08/03/18 at 20:59 Active Scripts Active Reported Seroquel (Quetiapine Fumarate) 100 Mg Tablet 100 Mg PO QHS Miralax (Polyethylene Glycol 3350) 17 Gm Powd.pack 17 Gm PO DAILY Protonix (Pantoprazole Sodium) 40 Mg Tablet.dr 40 Mg PO DAILY Nifedipine Er (Nifedipine) 30 Mg Tablet.er 30 Mg PO BID Mirtazapine 15 Mg Tablet 15 Mg PO QHS Metoprolol Tartrate 50 Mg Tablet 50 Mg PO DAILY Melatonin 3 Mg Tablet 3 Mg PO QHS Probiotic (Lactobacillus Combo No.10) 1 Each Capsule 1 Each PO DAILY Vitamin D2 (Ergocalciferol (Vitamin D2)) 50,000 Unit Capsule 50,000 Unit PO WEEKLY MONDAY Depakote Er (Divalproex Sodium) 500 Mg Tab.er.24h 500 Mg PO QHS Vitamin B-12 (Cyanocobalamin (Vitamin B-12)) 1,000 Mcg Tablet 1,000 Mcg PO DAILY 14 Days Give daily for 14 days beginning 08/01/2018 Amlodipine Besylate 5 Mg Tablet 5 Mg PO DAILY Arimidex (Anastrozole) 1 Mg Tablet 1 Mg PO DAILY I have reviewed the current psychotropics carefully including drug interactions. Risk benefit ratio favors no change other than as noted in my dictated progress note. Diagnosis: Problems: (1) Anxiety disorder (2) Dementia, vascular, with delusions (3) Dementia, vascular, with depression (4) Dementia in Alzheimer's disease with delusions (5) Dementia in Alzheimer's disease with depression (6) Impulse control disorder CONNIE CAIN MD July 28, 2018 22:42
[2018-07-29 07:08] VITALS: BP 106/63
[2018-07-29] MEDS: AMOXICILLIN 250 MG CAPSULE PO SCH ×2 (09:00→19:51)
[2018-07-29] MEDS: DIVALPROEX 125 MG CAP.SPRINK PO SCH ×2 (09:00→16:47)
[2018-07-29] MEDS: METOPROLOL TART IMMED RELEASE 25 MG TABLET PO SCH ×2 (10:24→19:52)
[2018-07-29] MEDS: PANTOPRAZOLE 40 MG TABLET. PO SCH (10:26)
[2018-07-29] MEDS: POLYETHYLENE GLYCOL 3350 17 GM PACKET. PO SCH (10:26)
[2018-07-29] MEDS: LACTOBACILLUS RHAMNOSUS GG 1 CAPSULE. PO SCH (10:31)
[2018-07-29] MEDS: QUEtiapine 25 MG TABLET. PO SCH ×2 (10:32→16:47)
[2018-07-29] MEDS: CYANOCOBALAMIN (VITAMIN B-12) 1,000 MCG TABLET. PO SCH (10:32)
[2018-07-29] MEDS: ACETAMINOPHEN 325 MG TABLET PO PRN (10:32)
[2018-07-29 10:38] LABS: BASO % 1 % (0-3); EOS # 0.1 x10^3/uL (0.0-0.7); EOS % 4 % (0-3); HEMATOCRIT 36.7 % (36.0-47.0); HEMOGLOBIN 12.2 g/dL (12.0-15.5); LYMPH # 0.8 x10^3/uL (1.0-4.8); LYMPH % 23 % (24-48); MEAN CORPUSCULAR HEMOGLOBIN 34 pg (25-35); MEAN CORPUSCULAR HGB CONC 33 g/dL (31-37); MEAN CORPUSCULAR VOLUME 101 fL (79-100); MONO # 0.4 x10^3/uL (0.0-1.1); MONO % 11 % (0-9); NEUT # 2.2 x10^3uL (1.8-7.7); NEUT % 62 % (31-73); PLATELET COUNT 229 x10^3/uL (140-400); RED BLOOD COUNT 3.63 x10^6/uL (3.50-5.40); RED CELL DISTRIBUTION WIDTH 13.5 % (11.5-14.5); WHITE BLOOD COUNT 3.5 x10^3/uL (4.0-11.0)
[2018-07-29 10:47] LABS: ALBUMIN/GLOBULIN RATIO 0.7 (1.0-1.7); ALK PHOS 56 U/L (46-116); ALT (SGPT) 17 U/L (14-59); ANION GAP 6 (6-14); AST (SGOT) 18 U/L (15-37); BLOOD UREA NITROGEN 24 mg/dL (7-20); BUN/CREATININE RATIO 22 (6-20); CALCIUM 9.5 mg/dL (8.5-10.1); CARBON DIOXIDE 31 mmol/L (21-32); CHLORIDE 109 mmol/L (98-107); CREATININE 1.1 mg/dL (0.6-1.0); GFR 47.6; GLUCOSE 116 mg/dL (70-99); POTASSIUM 4.1 mmol/L (3.5-5.1); SODIUM 146 mmol/L (136-145); TOTAL BILIRUBIN 0.3 mg/dL (0.2-1.0); TOTAL PROTEIN 7.2 g/dL (6.4-8.2)
[2018-07-29 11:11] LABS: VAL ACID 55 mcg/mL (50-100)
[2018-07-29 16:07] VITALS: BP 113/73
[2018-07-29] MEDS: MELATONIN 3 MG TABLET PO SCH (19:50)
[2018-07-29] MEDS: DIVALPROEX ER 500 MG TAB.ER.24H PO SCH (19:50)
[2018-07-29] MEDS: MIRTAZAPINE 15 MG TABLET PO SCH (19:50)
[2018-07-29] MEDS: QUEtiapine 100 MG TABLET. PO SCH (19:51)
--- NOTE | 2018-07-29 22:32 | PDOC ---
Exam Note: Ayo Note: Please also refer to the separate dictated note~for this date of service dictated separately.~Patient seen individually. Discussed the patient with Nursing staff reviewed the chart.~Reviewed interim history and current functioning. Reviewed vital signs,~Labs/ Radiology~and current medications noted below. Continue current treatment with the changes noted in the dictated addendum note Assessment: Vital Signs: Vital Signs Date Time Temp Pulse Resp B/P (MAP) Pulse Ox O2 Delivery O2 Flow Rate FiO2 07/29/18 19:52 67 113/73 07/29/18 16:07 97.2 20 98 07/28/18 06:21 Room Air I&O Intake and Output 07/29/18 06:59 Intake Total 960 ml Balance 960 ml Intake Oral 960 ml Labs: Laboratory Tests Test 07/29/18 10:17 White Blood Count 3.5 x10^3/uL (4.0-11.0) L Red Blood Count 3.63 x10^6/uL (3.50-5.40) Hemoglobin 12.2 g/dL (12.0-15.5) Hematocrit 36.7 % (36.0-47.0) Mean Corpuscular Volume 101 fL (79-100) H Mean Corpuscular Hemoglobin 34 pg (25-35) Mean Corpuscular Hemoglobin Concent 33 g/dL (31-37) Red Cell Distribution Width 13.5 % (11.5-14.5) Platelet Count 229 x10^3/uL (140-400) Neutrophils (%) (Auto) 62 % (31-73) Lymphocytes (%) (Auto) 23 % (24-48) L Monocytes (%) (Auto) 11 % (0-9) H Eosinophils (%) (Auto) 4 % (0-3) H Basophils (%) (Auto) 1 % (0-3) Neutrophils # (Auto) 2.2 x10^3uL (1.8-7.7) Lymphocytes # (Auto) 0.8 x10^3/uL (1.0-4.8) L Monocytes # (Auto) 0.4 x10^3/uL (0.0-1.1) Eosinophils # (Auto) 0.1 x10^3/uL (0.0-0.7) Basophils # (Auto) 0.0 x10^3/uL (0.0-0.2) Sodium Level 146 mmol/L (136-145) H Potassium Level 4.1 mmol/L (3.5-5.1) Chloride Level 109 mmol/L (98-107) H Carbon Dioxide Level 31 mmol/L (21-32) Anion Gap 6 (6-14) Blood Urea Nitrogen 24 mg/dL (7-20) H Creatinine 1.1 mg/dL (0.6-1.0) H Estimated GFR (Cockcroft-Gault) 47.6 BUN/Creatinine Ratio 22 (6-20) H Glucose Level 116 mg/dL (70-99) H Calcium Level 9.5 mg/dL (8.5-10.1) Total Bilirubin 0.3 mg/dL (0.2-1.0) Aspartate Amino Transferase (AST) 18 U/L (15-37) Alanine Aminotransferase (ALT) 17 U/L (14-59) Alkaline Phosphatase 56 U/L (46-116) Total Protein 7.2 g/dL (6.4-8.2) Albumin 3.0 g/dL (3.4-5.0) L Albumin/Globulin Ratio 0.7 (1.0-1.7) L Valproic Acid Level 55 mcg/mL (50-100) Valproic Acid Last Dose Date 07/28/18 Valproic Acid Last Dose Time 2100 Current Medications: Meds: Current Medications Acetaminophen (Tylenol) 650 mg PRN Q6HRS PRN PO PAIN / TEMP Last administered on 07/29/18at 10:32; Start 07/23/18 at 17:15 Multi-Ingredient Ointment (Analgesic [place]) 1 kenneth PRN QID PRN TP MUSCLE PAIN; Start 07/23/18 at 17:15 Al Hydroxide/Mg Hydroxide (Mylanta Plus Xs) 15 ml PRN AFTMEALHC PRN PO DYSPEPSIA; Start 07/23/18 at 17:15 Magnesium Hydroxide (Milk Of Magnesia) 2,400 mg PRN QHS PRN PO CONSTIPATION; Start 07/23/18 at 17:15 Divalproex Sodium (Depakote Er) 500 mg QHS PO Last administered on 07/29/18at 19:50; Start 07/23/18 at 22:00 Melatonin 3 mg QHS PO Last administered on 5/26/19at 19:50; Start 07/23/18 at 22:00 Mirtazapine (Remeron) 15 mg QHS PO Last administered on 07/29/18 19:50; Start 07/23/18 at 22:00 Quetiapine Fumarate (SEROquel) 100 mg QHS PO Last administered on 07/29/18 19:51; Start 07/23/18 at 22:00 Cyanocobalamin (Vitamin B-12) 1,000 mcg DAILY PO Last administered on 07/29/18 10:32; Start 07/24/18 at 09:00 Amlodipine Besylate (Norvasc) 5 mg DAILY PO Last administered on 07/24/18 08:57; Start 07/24/18 at 09:00; Stop 07/24/18 at 15:21; Status DC Anastrozole (Arimidex) 1 mg DAILY PO Last administered on 07/24/18 09:00; Start 07/24/18 at 09:00; Stop 07/24/18 at 22:35; Status DC Vitamin D (Vitamin D3) 50,000 unit WEEKLY PO ; Start 07/30/18 at 09:00 Lactobacillus Rhamnosus (Culturelle) 1 cap DAILY PO Last administered on 07/29/18 10:31; Start 07/24/18 at 09:00 Metoprolol Tartrate (Lopressor) 50 mg DAILY PO Last administered on 07/24/18 08:57; Start 07/24/18 at 09:00; Stop 07/24/18 at 15:22; Status DC Nifedipine (Procardia Xl) 30 mg BID PO Last administered on 07/24/18 08:56; Start 07/23/18 at 22:00; Stop 07/24/18 at 15:22; Status DC Pantoprazole Sodium (Protonix) 40 mg DAILY PO Last administered on 07/29/18 10:26; Start 07/24/18 at 09:00 Polyethylene Glycol (miraLAX) 17 gm DAILY PO Last administered on 07/29/18 10:26; Start 07/24/18 at 09:00 Metoprolol Tartrate (Lopressor) 25 mg BID PO Last administered on 07/29/18 19:52; Start 07/24/18 at 21:00 Nifedipine (Procardia Xl) 60 mg BID PO Last administered on 07/29/18 19:52; Start 07/24/18 at 21:00 Quetiapine Fumarate (SEROquel) 25 mg BID92 PO Last administered on 07/29/18 16:47; Start 07/26/18 at 09:00 Olanzapine (ZyPREXA ZYDIS) 2.5 mg PRN Q2HR PRN PO agitation/psychosis Last administered on 07/27/18 19:51; Start 07/25/18 at 17:30 Divalproex Sodium (Depakote Sprinkles) 125 mg 0900,1300 PO Last administered on 07/29/18 16:47; Start 07/26/18 at 13:00 Amoxicillin (Amoxil) 250 mg BID PO Last administered on 07/29/18 19:51; Start 07/27/18 at 21:00; Stop 08/03/18 at 20:59 Active Scripts Active Reported Seroquel (Quetiapine Fumarate) 100 Mg Tablet 100 Mg PO QHS Miralax (Polyethylene Glycol 3350) 17 Gm Powd.pack 17 Gm PO DAILY Protonix (Pantoprazole Sodium) 40 Mg Tablet.dr 40 Mg PO DAILY Nifedipine Er (Nifedipine) 30 Mg Tablet.er 30 Mg PO BID Mirtazapine 15 Mg Tablet 15 Mg PO QHS Metoprolol Tartrate 50 Mg Tablet 50 Mg PO DAILY Melatonin 3 Mg Tablet 3 Mg PO QHS Probiotic (Lactobacillus Combo No.10) 1 Each Capsule 1 Each PO DAILY Vitamin D2 (Ergocalciferol (Vitamin D2)) 50,000 Unit Capsule 50,000 Unit PO WEEKLY MONDAY Depakote Er (Divalproex Sodium) 500 Mg Tab.er.24h 500 Mg PO QHS Vitamin B-12 (Cyanocobalamin (Vitamin B-12)) 1,000 Mcg Tablet 1,000 Mcg PO DAILY 14 Days Give daily for 14 days beginning 08/01/2018 Amlodipine Besylate 5 Mg Tablet 5 Mg PO DAILY Arimidex (Anastrozole) 1 Mg Tablet 1 Mg PO DAILY I have reviewed the current psychotropics carefully including drug interactions. Risk benefit ratio favors no change other than as noted in my dictated progress note. Diagnosis: Problems: (1) Anxiety disorder (2) Dementia, vascular, with delusions (3) Dementia, vascular, with depression (4) Dementia in Alzheimer's disease with delusions (5) Dementia in Alzheimer's disease with depression (6) Impulse control disorder CONNIE CAIN MD July 29, 2018 22:32
[2018-07-30 06:21] VITALS: BP 156/81
[2018-07-30] MEDS: QUEtiapine 25 MG TABLET. PO SCH ×2 (08:36→15:11)
[2018-07-30] MEDS: AMOXICILLIN 250 MG CAPSULE PO SCH ×2 (08:36→19:49)
[2018-07-30] MEDS: LACTOBACILLUS RHAMNOSUS GG 1 CAPSULE. PO SCH (08:37)
[2018-07-30] MEDS: PANTOPRAZOLE 40 MG TABLET. PO SCH (08:37)
[2018-07-30] MEDS: METOPROLOL TART IMMED RELEASE 25 MG TABLET PO SCH ×2 (08:37→20:02)
[2018-07-30] MEDS: CYANOCOBALAMIN (VITAMIN B-12) 1,000 MCG TABLET. PO SCH (08:38)
[2018-07-30] MEDS: POLYETHYLENE GLYCOL 3350 17 GM PACKET. PO SCH (08:38)
[2018-07-30] MEDS: DIVALPROEX 125 MG CAP.SPRINK PO SCH ×2 (08:38→15:11)
[2018-07-30] MEDS: CHOLECALCIFEROL (VITAMIN D3) 50,000 UNIT CAPSULE PO SCH (08:44)
--- NOTE | 2018-07-30 12:31 | PN ---
DATE: 07/29/2018 PSYCHIATRIC PROGRESS NOTE This note covers elements not covered in my initial note 07/29/2018. ' SUBJECTIVE: Met with the patient in evening of 07/29/2018. The patient slept 5-3/4 hours previous evening. She did well during the day, remains confused, but in the evening she was in the wrong room and when redirected, she was crying, tearful, anxious, labile, paranoid. She is delusional, believing her kids were . REVIEW OF SYSTEMS: No CV, , pulmonary, eye, ENT system symptoms on review. Reliability is poor. MENTAL STATUS EXAM: Oriented to herself. Insight, judgment, recent and remote memory, attention, concentration, fund of knowledge is poor, consistent with her diagnoses mentioned in my initial note. PLAN: No change from initial note. Maintain Depakote, melatonin, Remeron, Seroquel along with Zyprexa p.r.n. Labs have been drawn today. We will await results and make further adjustments as clinically indicated. CONNIE CAIN MD DR: SUNNY/oni JOB#: [id number] / [id number]
[2018-07-30 16:19] VITALS: BP 147/83
[2018-07-30] MEDS: DIVALPROEX ER 500 MG TAB.ER.24H PO SCH (19:49)
[2018-07-30] MEDS: MIRTAZAPINE 15 MG TABLET PO SCH (19:49)
[2018-07-30] MEDS: MELATONIN 3 MG TABLET PO SCH (19:49)
[2018-07-30] MEDS: QUEtiapine 100 MG TABLET. PO SCH (20:02)
--- NOTE | 2018-07-30 22:37 | PDOC ---
Exam Note: Ayo Note: Please also refer to the separate dictated note~for this date of service dictated separately.~Patient seen individually. Discussed the patient with Nursing staff reviewed the chart.~Reviewed interim history and current functioning. Reviewed vital signs,~Labs/ Radiology~and current medications noted below. Continue current treatment with the changes noted in the dictated addendum note Assessment: Vital Signs: Vital Signs Date Time Temp Pulse Resp B/P (MAP) Pulse Ox O2 Delivery O2 Flow Rate FiO2 07/30/18 20:06 85 147/83 07/30/18 16:19 97.4 20 95 07/28/18 06:21 Room Air I&O Intake and Output 07/30/18 06:59 Intake Total 960 ml Balance 960 ml Intake Oral 960 ml Current Medications: Meds: Current Medications Acetaminophen (Tylenol) 650 mg PRN Q6HRS PRN PO PAIN / TEMP Last administered on 07/29/18at 10:32; Start 07/23/18 at 17:15 Multi-Ingredient Ointment (Analgesic [place]) 1 kenneth PRN QID PRN TP MUSCLE PAIN; Start 07/23/18 at 17:15 Al Hydroxide/Mg Hydroxide (Mylanta Plus Xs) 15 ml PRN AFTMEALHC PRN PO DYSPEPSIA; Start 07/23/18 at 17:15 Magnesium Hydroxide (Milk Of Magnesia) 2,400 mg PRN QHS PRN PO CONSTIPATION; Start 07/23/18 at 17:15 Divalproex Sodium (Depakote Er) 500 mg QHS PO Last administered on 07/30/18at 19:49; Start 07/23/18 at 22:00 Melatonin 3 mg QHS PO Last administered on 07/30/18at 19:49; Start 07/23/18 at 22:00 Mirtazapine (Remeron) 15 mg QHS PO Last administered on 07/30/18at 19:49; Start 07/23/18 at 22:00 Quetiapine Fumarate (SEROquel) 100 mg QHS PO Last administered on 07/30/18at 20:02; Start 07/23/18 at 22:00 Cyanocobalamin (Vitamin B-12) 1,000 mcg DAILY PO Last administered on 07/30/18at 08:38; Start 07/24/18 at 09:00 Amlodipine Besylate (Norvasc) 5 mg DAILY PO Last administered on 07/24/18 08:57; Start 07/24/18 at 09:00; Stop 07/24/18 at 15:21; Status DC Anastrozole (Arimidex) 1 mg DAILY PO Last administered on 07/24/18 09:00; Start 07/24/18 at 09:00; Stop 07/24/18 at 22:35; Status DC Vitamin D (Vitamin D3) 50,000 unit WEEKLY PO Last administered on 07/30/18 08:44; Start 07/30/18 at 09:00 Lactobacillus Rhamnosus (Culturelle) 1 cap DAILY PO Last administered on 07/30/18 08:37; Start 07/24/18 at 09:00 Metoprolol Tartrate (Lopressor) 50 mg DAILY PO Last administered on 07/24/18 08:57; Start 07/24/18 at 09:00; Stop 07/24/18 at 15:22; Status DC Nifedipine (Procardia Xl) 30 mg BID PO Last administered on 07/24/18 08:56; Start 07/23/18 at 22:00; Stop 07/24/18 at 15:22; Status DC Pantoprazole Sodium (Protonix) 40 mg DAILY PO Last administered on 07/30/18 08:37; Start 07/24/18 at 09:00 Polyethylene Glycol (miraLAX) 17 gm DAILY PO Last administered on 07/30/18 08:38; Start 07/24/18 at 09:00 Metoprolol Tartrate (Lopressor) 25 mg BID PO Last administered on 07/30/18 20:02; Start 07/24/18 at 21:00 Nifedipine (Procardia Xl) 60 mg BID PO Last administered on 07/30/18 20:06; Start 07/24/18 at 21:00 Quetiapine Fumarate (SEROquel) 25 mg BID92 PO Last administered on 07/30/18 15:11; Start 07/26/18 at 09:00 Olanzapine (ZyPREXA ZYDIS) 2.5 mg PRN Q2HR PRN PO agitation/psychosis Last administered on 07/27/18 19:51; Start 07/25/18 at 17:30 Divalproex Sodium (Depakote Sprinkles) 125 mg 0900,1300 PO Last administered on 07/30/18at 15:11; Start 07/26/18 at 13:00 Amoxicillin (Amoxil) 250 mg BID PO Last administered on 07/30/18at 19:49; Start 07/27/18 at 21:00; Stop 08/03/18 at 20:59 Active Scripts Active Reported Seroquel (Quetiapine Fumarate) 100 Mg Tablet 100 Mg PO QHS Miralax (Polyethylene Glycol 3350) 17 Gm Powd.pack 17 Gm PO DAILY Protonix (Pantoprazole Sodium) 40 Mg Tablet.dr 40 Mg PO DAILY Nifedipine Er (Nifedipine) 30 Mg Tablet.er 30 Mg PO BID Mirtazapine 15 Mg Tablet 15 Mg PO QHS Metoprolol Tartrate 50 Mg Tablet 50 Mg PO DAILY Melatonin 3 Mg Tablet 3 Mg PO QHS Probiotic (Lactobacillus Combo No.10) 1 Each Capsule 1 Each PO DAILY Vitamin D2 (Ergocalciferol (Vitamin D2)) 50,000 Unit Capsule 50,000 Unit PO WEEKLY MONDAY Depakote Er (Divalproex Sodium) 500 Mg Tab.er.24h 500 Mg PO QHS Vitamin B-12 (Cyanocobalamin (Vitamin B-12)) 1,000 Mcg Tablet 1,000 Mcg PO DAILY 14 Days Give daily for 14 days beginning 08/01/2018 Amlodipine Besylate 5 Mg Tablet 5 Mg PO DAILY Arimidex (Anastrozole) 1 Mg Tablet 1 Mg PO DAILY I have reviewed the current psychotropics carefully including drug interactions. Risk benefit ratio favors no change other than as noted in my dictated progress note. Diagnosis: Problems: (1) Anxiety disorder (2) Dementia, vascular, with delusions (3) Dementia, vascular, with depression (4) Dementia in Alzheimer's disease with delusions (5) Dementia in Alzheimer's disease with depression (6) Impulse control disorder CONNIE CAIN MD July 30, 2018 22:37
--- NOTE | 2018-07-30 23:45 | PN ---
DATE: 07/30/2018 PSYCHIATRIC PROGRESS NOTE This note covers elements not covered in my initial note 07/30/2018. SUBJECTIVE: I met with the patient in the evening of 07/30/2018. The patient slept 7 hours previous night. She remains confused. Her daughter visited. Valproic acid level is 55. BUN 24. Fluids are being pushed. 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 REVIEW OF SYSTEMS: No CV, , pulmonary, eye, ENT system symptoms on review. Reliability poor. MENTAL STATUS EXAM: Oriented to herself. Insight, judgment, recent and remote memory, attention, concentration, fund of knowledge poor, consistent with her diagnosis mentioned in my initial note. PLAN: No change from initial note. MAN Malissa CAIN MD DR: SUNNY/oni JOB#: [id number] / [id number]
--- NOTE | 2018-07-31 00:12 | PN ---
DATE: 07/27/2018 PSYCHIATRIC PROGRESS NOTE This late entry 07/27/2018 covers elements not covered in my initial note. SUBJECTIVE: I met with the patient in the evening of 07/27/2018. The patient slept 7 hours previous night. She was quite tearful previous evening. UA has been returned and she started on Amoxil for UTI 250 b.i.d. for 7 days. Speech is word salad. REVIEW OF SYSTEMS: No CV, , pulmonary, eye, ENT system symptoms on review. Reliability poor. MENTAL STATUS EXAM: Oriented to herself. Insight, judgment, recent and remote memory, attention, concentration, fund of knowledge poor, consistent with her diagnosis mentioned in my initial note. PLAN: No change from initial note. CONNIE CAIN MD DR: SUNNY/oni JOB#: [id number] / [id number]
--- NOTE | 2018-07-31 01:07 | PN ---
DATE: 07/28/2018 PSYCHIATRIC PROGRESS NOTE This late entry 07/28/2018 covers elements not covered in my initial note. SUBJECTIVE: I met with the patient in the evening of 07/28/2018. The patient slept 6-1/4 hours previous evening. The patient remains confused, somewhat tearful, has mood lability consistent with pseudobulbar affect, puts herself on the floor. REVIEW OF SYSTEMS: No CV, , pulmonary, eye, ENT system symptoms on review. Reliability poor. MENTAL STATUS EXAM: Oriented to herself. Insight, judgment, recent and remote memory, attention, concentration, fund of knowledge poor, consistent with her diagnosis mentioned in my initial note. PLAN: No change from initial note. MAN Malissa CAIN MD DR: SUNNY/oni JOB#: [id number] / [id number]
[2018-07-31 06:04] VITALS: BP 147/74
[2018-07-31] MEDS: DIVALPROEX 125 MG CAP.SPRINK PO SCH ×2 (09:27→13:25)
[2018-07-31] MEDS: METOPROLOL TART IMMED RELEASE 25 MG TABLET PO SCH ×2 (09:28→19:36)
[2018-07-31] MEDS: POLYETHYLENE GLYCOL 3350 17 GM PACKET. PO SCH (09:28)
[2018-07-31] MEDS: LACTOBACILLUS RHAMNOSUS GG 1 CAPSULE. PO SCH (09:28)
[2018-07-31] MEDS: AMOXICILLIN 250 MG CAPSULE PO SCH ×2 (09:28→19:34)
[2018-07-31] MEDS: QUEtiapine 25 MG TABLET. PO SCH ×2 (09:28→13:25)
[2018-07-31] MEDS: CYANOCOBALAMIN (VITAMIN B-12) 1,000 MCG TABLET. PO SCH (09:28)
[2018-07-31] MEDS: PANTOPRAZOLE 40 MG TABLET. PO SCH (09:28)
[2018-07-31 16:37] VITALS: BP 119/69
[2018-07-31] MEDS: QUEtiapine 100 MG TABLET. PO SCH (19:34)
[2018-07-31] MEDS: MELATONIN 3 MG TABLET PO SCH (19:35)
[2018-07-31] MEDS: DIVALPROEX ER 500 MG TAB.ER.24H PO SCH (19:35)
[2018-07-31] MEDS: MIRTAZAPINE 15 MG TABLET PO SCH (19:35)
--- NOTE | 2018-07-31 22:43 | PDOC ---
Exam Note: Ayo Note: Please also refer to the separate dictated note~for this date of service dictated separately.~Patient seen individually. Discussed the patient with Nursing staff reviewed the chart.~Reviewed interim history and current functioning. Reviewed vital signs,~Labs/ Radiology~and current medications noted below. Continue current treatment with the changes noted in the dictated addendum note Assessment: Vital Signs: Vital Signs Date Time Temp Pulse Resp B/P (MAP) Pulse Ox O2 Delivery O2 Flow Rate FiO2 07/31/18 19:36 70 131/80 07/31/18 16:37 98.1 20 96 Room Air I&O Intake and Output 07/31/18 06:59 Intake Total 960 ml Balance 960 ml Intake Oral 960 ml # Voids 2 Current Medications: Meds: Current Medications Acetaminophen (Tylenol) 650 mg PRN Q6HRS PRN PO PAIN / TEMP Last administered on 07/29/18at 10:32; Start 07/23/18 at 17:15 Multi-Ingredient Ointment (Analgesic [place]) 1 kenneth PRN QID PRN TP MUSCLE PAIN; Start 07/23/18 at 17:15 Al Hydroxide/Mg Hydroxide (Mylanta Plus Xs) 15 ml PRN AFTMEALHC PRN PO DYSPEPSIA; Start 07/23/18 at 17:15 Magnesium Hydroxide (Milk Of Magnesia) 2,400 mg PRN QHS PRN PO CONSTIPATION; Start 07/23/18 at 17:15 Divalproex Sodium (Depakote Er) 500 mg QHS PO Last administered on 07/31/18at 19:35; Start 07/23/18 at 22:00 Melatonin 3 mg QHS PO Last administered on 07/31/18at 19:35; Start 07/23/18 at 22:00 Mirtazapine (Remeron) 15 mg QHS PO Last administered on 07/31/18at 19:35; Start 07/23/18 at 22:00 Quetiapine Fumarate (SEROquel) 100 mg QHS PO Last administered on 07/31/18at 19:34; Start 07/23/18 at 22:00 Cyanocobalamin (Vitamin B-12) 1,000 mcg DAILY PO Last administered on 07/31/18at 09:28; Start 07/24/18 at 09:00 Amlodipine Besylate (Norvasc) 5 mg DAILY PO Last administered on 07/24/18 08:57; Start 07/24/18 at 09:00; Stop 07/24/18 at 15:21; Status DC Anastrozole (Arimidex) 1 mg DAILY PO Last administered on 07/24/18 09:00; Start 07/24/18 at 09:00; Stop 07/24/18 at 22:35; Status DC Vitamin D (Vitamin D3) 50,000 unit WEEKLY PO Last administered on 07/30/18 08:44; Start 07/30/18 at 09:00 Lactobacillus Rhamnosus (Culturelle) 1 cap DAILY PO Last administered on 07/31/18 09:28; Start 07/24/18 at 09:00 Metoprolol Tartrate (Lopressor) 50 mg DAILY PO Last administered on 07/24/18 08:57; Start 07/24/18 at 09:00; Stop 07/24/18 at 15:22; Status DC Nifedipine (Procardia Xl) 30 mg BID PO Last administered on 07/24/18 08:56; Start 07/23/18 at 22:00; Stop 07/24/18 at 15:22; Status DC Pantoprazole Sodium (Protonix) 40 mg DAILY PO Last administered on 07/31/18 09:28; Start 07/24/18 at 09:00 Polyethylene Glycol (miraLAX) 17 gm DAILY PO Last administered on 07/31/18 09:28; Start 07/24/18 at 09:00 Metoprolol Tartrate (Lopressor) 25 mg BID PO Last administered on 07/31/18 19:36; Start 07/24/18 at 21:00 Nifedipine (Procardia Xl) 60 mg BID PO Last administered on 07/31/18 19:34; Start 07/24/18 at 21:00 Quetiapine Fumarate (SEROquel) 25 mg BID92 PO Last administered on 07/31/18 13:25; Start 07/26/18 at 09:00 Olanzapine (ZyPREXA ZYDIS) 2.5 mg PRN Q2HR PRN PO agitation/psychosis Last administered on 07/27/18 19:51; Start 07/25/18 at 17:30 Divalproex Sodium (Depakote Sprinkles) 125 mg 0900,1300 PO Last administered on 07/31/18at 13:25; Start 07/26/18 at 13:00 Amoxicillin (Amoxil) 250 mg BID PO Last administered on 07/31/18at 19:34; Start 07/27/18 at 21:00; Stop 08/03/18 at 20:59 Sertraline HCl (Zoloft) 25 mg DAILY PO ; Start 08/01/18 at 09:00; Stop 08/03/18 at 23:00 Sertraline HCl (Zoloft) 50 mg DAILY PO ; Start 08/04/18 at 09:00 Active Scripts Active Reported Seroquel (Quetiapine Fumarate) 100 Mg Tablet 100 Mg PO QHS Miralax (Polyethylene Glycol 3350) 17 Gm Powd.pack 17 Gm PO DAILY Protonix (Pantoprazole Sodium) 40 Mg Tablet.dr 40 Mg PO DAILY Nifedipine Er (Nifedipine) 30 Mg Tablet.er 30 Mg PO BID Mirtazapine 15 Mg Tablet 15 Mg PO QHS Metoprolol Tartrate 50 Mg Tablet 50 Mg PO DAILY Melatonin 3 Mg Tablet 3 Mg PO QHS Probiotic (Lactobacillus Combo No.10) 1 Each Capsule 1 Each PO DAILY Vitamin D2 (Ergocalciferol (Vitamin D2)) 50,000 Unit Capsule 50,000 Unit PO WEEKLY MONDAY Depakote Er (Divalproex Sodium) 500 Mg Tab.er.24h 500 Mg PO QHS Vitamin B-12 (Cyanocobalamin (Vitamin B-12)) 1,000 Mcg Tablet 1,000 Mcg PO DAILY 14 Days Give daily for 14 days beginning 08/01/2018 Amlodipine Besylate 5 Mg Tablet 5 Mg PO DAILY Arimidex (Anastrozole) 1 Mg Tablet 1 Mg PO DAILY I have reviewed the current psychotropics carefully including drug interactions. Risk benefit ratio favors no change other than as noted in my dictated progress note. Diagnosis: Problems: (1) Anxiety disorder (2) Dementia, vascular, with delusions (3) Dementia, vascular, with depression (4) Dementia in Alzheimer's disease with delusions (5) Dementia in Alzheimer's disease with depression (6) Impulse control disorder CONNIE CAIN MD July 31, 2018 22:43
--- NOTE | 2018-07-31 23:16 | PN ---
DATE: 07/31/2018 PSYCHIATRIC PROGRESS NOTE This note covers elements not covered in my initial note of 07/31/2018. SUBJECTIVE: I met with the patient in the evening. The patient slept 6 hours previous night. She remains confused, stripped all the beds on the unit, oblivious of what she is doing. She urinating on the floor at night, trying to use the pillow covers as pants. REVIEW OF SYSTEMS: No CV, , pulmonary, eye, ENT system symptoms on review. Reliability poor. MENTAL STATUS EXAM: Oriented to herself. Insight, judgment, recent and remote memory, attention, concentration, fund of knowledge poor, consistent with her diagnoses mentioned in my initial note. PLAN: No change from initial note, but we will go ahead and start Zoloft 25 mg a day for 3 days, increasing to 50 mg a day for her mood and anxiety symptoms. Rest unchanged per initial note. MAN Malissa CAIN MD DR: SUNNY/oni JOB#: [id number] / [id number]
[2018-08-01 06:13] VITALS: BP 135/70
[2018-08-01] MEDS: METOPROLOL TART IMMED RELEASE 25 MG TABLET PO SCH ×2 (08:07→19:45)
[2018-08-01] MEDS: LACTOBACILLUS RHAMNOSUS GG 1 CAPSULE. PO SCH (08:07)
[2018-08-01] MEDS: PANTOPRAZOLE 40 MG TABLET. PO SCH (08:07)
[2018-08-01] MEDS: AMOXICILLIN 250 MG CAPSULE PO SCH ×2 (08:07→19:44)
[2018-08-01] MEDS: POLYETHYLENE GLYCOL 3350 17 GM PACKET. PO SCH (08:07)
[2018-08-01] MEDS: DIVALPROEX 125 MG CAP.SPRINK PO SCH ×2 (08:07→12:37)
[2018-08-01] MEDS: CYANOCOBALAMIN (VITAMIN B-12) 1,000 MCG TABLET. PO SCH (08:07)
[2018-08-01] MEDS: QUEtiapine 25 MG TABLET. PO SCH ×2 (08:07→12:37)
[2018-08-01] MEDS: SERTRALINE 25 MG TABLET. PO SCH (08:10)
[2018-08-01] MEDS: QUEtiapine 100 MG TABLET. PO SCH (19:45)
[2018-08-01] MEDS: MELATONIN 3 MG TABLET PO SCH (19:45)
[2018-08-01] MEDS: MIRTAZAPINE 15 MG TABLET PO SCH (19:45)
[2018-08-01] MEDS: DIVALPROEX ER 500 MG TAB.ER.24H PO SCH (19:46)
--- NOTE | 2018-08-01 22:31 | PDOC ---
Exam Note: Ayo Note: Please also refer to the separate dictated note~for this date of service dictated separately.~Patient seen individually. Discussed the patient with Nursing staff reviewed the chart.~Reviewed interim history and current functioning. Reviewed vital signs,~Labs/ Radiology~and current medications noted below. Continue current treatment with the changes noted in the dictated addendum note Assessment: Vital Signs: Vital Signs Date Time Temp Pulse Resp B/P (MAP) Pulse Ox O2 Delivery O2 Flow Rate FiO2 08/01/18 21:11 69 135/70 08/01/18 06:13 97.6 18 97 Room Air I&O Intake and Output 08/01/18 07:00 Intake Total 1080 ml Balance 1080 ml Intake Oral 1080 ml Current Medications: Meds: Current Medications Acetaminophen (Tylenol) 650 mg PRN Q6HRS PRN PO PAIN / TEMP Last administered on 07/29/18at 10:32; Start 07/23/18 at 17:15 Multi-Ingredient Ointment (Analgesic [place]) 1 kenneth PRN QID PRN TP MUSCLE PAIN; Start 07/23/18 at 17:15 Al Hydroxide/Mg Hydroxide (Mylanta Plus Xs) 15 ml PRN AFTMEALHC PRN PO DYSPEPSIA; Start 07/23/18 at 17:15 Magnesium Hydroxide (Milk Of Magnesia) 2,400 mg PRN QHS PRN PO CONSTIPATION; Start 07/23/18 at 17:15 Divalproex Sodium (Depakote Er) 500 mg QHS PO Last administered on 08/01/18at 19:46; Start 07/23/18 at 22:00 Melatonin 3 mg QHS PO Last administered on 08/01/18at 19:45; Start 07/23/18 at 22:00 Mirtazapine (Remeron) 15 mg QHS PO Last administered on 08/01/18at 19:45; Start 07/23/18 at 22:00 Quetiapine Fumarate (SEROquel) 100 mg QHS PO Last administered on 08/01/18at 19:45; Start 07/23/18 at 22:00 Cyanocobalamin (Vitamin B-12) 1,000 mcg DAILY PO Last administered on 08/01/18at 08:07; Start 07/24/18 at 09:00 Amlodipine Besylate (Norvasc) 5 mg DAILY PO Last administered on 07/24/18 08:57; Start 07/24/18 at 09:00; Stop 07/24/18 at 15:21; Status DC Anastrozole (Arimidex) 1 mg DAILY PO Last administered on 07/24/18 09:00; Start 07/24/18 at 09:00; Stop 07/24/18 at 22:35; Status DC Vitamin D (Vitamin D3) 50,000 unit WEEKLY PO Last administered on 07/30/18 08:44; Start 07/30/18 at 09:00 Lactobacillus Rhamnosus (Culturelle) 1 cap DAILY PO Last administered on 08/01/18 08:07; Start 07/24/18 at 09:00 Metoprolol Tartrate (Lopressor) 50 mg DAILY PO Last administered on 07/24/18 08:57; Start 07/24/18 at 09:00; Stop 07/24/18 at 15:22; Status DC Nifedipine (Procardia Xl) 30 mg BID PO Last administered on 07/24/18 08:56; Start 07/23/18 at 22:00; Stop 07/24/18 at 15:22; Status DC Pantoprazole Sodium (Protonix) 40 mg DAILY PO Last administered on 08/01/18 08:07; Start 07/24/18 at 09:00 Polyethylene Glycol (miraLAX) 17 gm DAILY PO Last administered on 08/01/18 08:07; Start 07/24/18 at 09:00 Metoprolol Tartrate (Lopressor) 25 mg BID PO Last administered on 08/01/18 19:45; Start 07/24/18 at 21:00 Nifedipine (Procardia Xl) 60 mg BID PO Last administered on 08/01/18 21:11; Start 07/24/18 at 21:00 Quetiapine Fumarate (SEROquel) 25 mg BID92 PO Last administered on 08/01/18 12:37; Start 07/26/18 at 09:00 Olanzapine (ZyPREXA ZYDIS) 2.5 mg PRN Q2HR PRN PO agitation/psychosis Last administered on 07/27/18 19:51; Start 07/25/18 at 17:30 Divalproex Sodium (Depakote Sprinkles) 125 mg 0900,1300 PO Last administered on 5/29/19at 12:37; Start 07/26/18 at 13:00 Amoxicillin (Amoxil) 250 mg BID PO Last administered on 08/01/18at 19:44; Start 07/27/18 at 21:00; Stop 08/03/18 at 20:59 Sertraline HCl (Zoloft) 25 mg DAILY PO Last administered on 08/01/18at 08:10; Start 08/01/18 at 09:00; Stop 08/03/18 at 23:00 Sertraline HCl (Zoloft) 50 mg DAILY PO ; Start 08/04/18 at 09:00 Active Scripts Active Reported Seroquel (Quetiapine Fumarate) 100 Mg Tablet 100 Mg PO QHS Miralax (Polyethylene Glycol 3350) 17 Gm Powd.pack 17 Gm PO DAILY Protonix (Pantoprazole Sodium) 40 Mg Tablet.dr 40 Mg PO DAILY Nifedipine Er (Nifedipine) 30 Mg Tablet.er 30 Mg PO BID Mirtazapine 15 Mg Tablet 15 Mg PO QHS Metoprolol Tartrate 50 Mg Tablet 50 Mg PO DAILY Melatonin 3 Mg Tablet 3 Mg PO QHS Probiotic (Lactobacillus Combo No.10) 1 Each Capsule 1 Each PO DAILY Vitamin D2 (Ergocalciferol (Vitamin D2)) 50,000 Unit Capsule 50,000 Unit PO WEEKLY MONDAY Depakote Er (Divalproex Sodium) 500 Mg Tab.er.24h 500 Mg PO QHS Vitamin B-12 (Cyanocobalamin (Vitamin B-12)) 1,000 Mcg Tablet 1,000 Mcg PO DAILY 14 Days Give daily for 14 days beginning 08/01/2018 Amlodipine Besylate 5 Mg Tablet 5 Mg PO DAILY Arimidex (Anastrozole) 1 Mg Tablet 1 Mg PO DAILY I have reviewed the current psychotropics carefully including drug interactions. Risk benefit ratio favors no change other than as noted in my dictated progress note. Diagnosis: Problems: (1) Anxiety disorder (2) Dementia, vascular, with delusions (3) Dementia, vascular, with depression (4) Dementia in Alzheimer's disease with delusions (5) Dementia in Alzheimer's disease with depression (6) Impulse control disorder CONNIE CAIN MD August 01, 2018 22:31
[2018-08-02] MEDS: ACETAMINOPHEN 325 MG TABLET PO PRN (00:26)
[2018-08-02 06:19] VITALS: BP 126/84
[2018-08-02] MEDS: LACTOBACILLUS RHAMNOSUS GG 1 CAPSULE. PO SCH (09:53)
[2018-08-02] MEDS: CYANOCOBALAMIN (VITAMIN B-12) 1,000 MCG TABLET. PO SCH (09:53)
[2018-08-02] MEDS: SERTRALINE 25 MG TABLET. PO SCH (09:53)
[2018-08-02] MEDS: PANTOPRAZOLE 40 MG TABLET. PO SCH (09:54)
[2018-08-02] MEDS: METOPROLOL TART IMMED RELEASE 25 MG TABLET PO SCH ×2 (09:54→20:10)
[2018-08-02] MEDS: AMOXICILLIN 250 MG CAPSULE PO SCH ×2 (09:54→20:10)
[2018-08-02] MEDS: POLYETHYLENE GLYCOL 3350 17 GM PACKET. PO SCH (09:55)
[2018-08-02] MEDS: DIVALPROEX 125 MG CAP.SPRINK PO SCH ×2 (09:55→13:43)
[2018-08-02] MEDS: QUEtiapine 25 MG TABLET. PO SCH ×2 (09:55→13:43)
[2018-08-02 15:51] VITALS: BP 118/71
[2018-08-02] MEDS: MELATONIN 3 MG TABLET PO SCH (20:10)
[2018-08-02] MEDS: MIRTAZAPINE 15 MG TABLET PO SCH (20:11)
[2018-08-02] MEDS: QUEtiapine 100 MG TABLET. PO SCH (20:11)
[2018-08-02] MEDS: DIVALPROEX ER 500 MG TAB.ER.24H PO SCH (20:11)
--- NOTE | 2018-08-02 22:30 | PDOC ---
Exam Note: Ayo Note: Please also refer to the separate dictated note~for this date of service dictated separately.~Patient seen individually. Discussed the patient with Nursing staff reviewed the chart.~Reviewed interim history and current functioning. Reviewed vital signs,~Labs/ Radiology~and current medications noted below. Continue current treatment with the changes noted in the dictated addendum note Assessment: Vital Signs: Vital Signs Date Time Temp Pulse Resp B/P (MAP) Pulse Ox O2 Delivery O2 Flow Rate FiO2 08/02/18 20:12 65 118/71 08/02/18 15:51 98.3 18 94 08/01/18 06:13 Room Air I&O Intake and Output 08/02/18 07:00 Intake Total 720 ml Balance 720 ml Intake Oral 720 ml # Voids 1 # Bowel Movements 1 Current Medications: Meds: Current Medications Acetaminophen (Tylenol) 650 mg PRN Q6HRS PRN PO PAIN / TEMP Last administered on 08/02/18 00:26; Start 07/23/18 at 17:15 Multi-Ingredient Ointment (Analgesic [place]) 1 kenneth PRN QID PRN TP MUSCLE PAIN; Start 07/23/18 at 17:15 Al Hydroxide/Mg Hydroxide (Mylanta Plus Xs) 15 ml PRN AFTMEALHC PRN PO DYSPEPSIA; Start 07/23/18 at 17:15 Magnesium Hydroxide (Milk Of Magnesia) 2,400 mg PRN QHS PRN PO CONSTIPATION; Start 07/23/18 at 17:15 Divalproex Sodium (Depakote Er) 500 mg QHS PO Last administered on 08/02/18 20:11; Start 07/23/18 at 22:00 Melatonin 3 mg QHS PO Last administered on 08/02/18at 20:10; Start 07/23/18 at 22:00 Mirtazapine (Remeron) 15 mg QHS PO Last administered on 08/02/18 20:11; Start 07/23/18 at 22:00 Quetiapine Fumarate (SEROquel) 100 mg QHS PO Last administered on 08/02/18at 20:11; Start 07/23/18 at 22:00 Cyanocobalamin (Vitamin B-12) 1,000 mcg DAILY PO Last administered on 08/02/18at 09:53; Start 07/24/18 at 09:00 Amlodipine Besylate (Norvasc) 5 mg DAILY PO Last administered on 07/24/18 08:57; Start 07/24/18 at 09:00; Stop 07/24/18 at 15:21; Status DC Anastrozole (Arimidex) 1 mg DAILY PO Last administered on 07/24/18 09:00; Start 07/24/18 at 09:00; Stop 07/24/18 at 22:35; Status DC Vitamin D (Vitamin D3) 50,000 unit WEEKLY PO Last administered on 07/30/18 08 :44; Start 07/30/18 at 09:00 Lactobacillus Rhamnosus (Culturelle) 1 cap DAILY PO Last administered on 08/02/18 09:53; Start 07/24/18 at 09:00 Metoprolol Tartrate (Lopressor) 50 mg DAILY PO Last administered on 07/24/18 08:57; Start 07/24/18 at 09:00; Stop 07/24/18 at 15:22; Status DC Nifedipine (Procardia Xl) 30 mg BID PO Last administered on 07/24/18 08:56; Start 07/23/18 at 22:00; Stop 07/24/18 at 15:22; Status DC Pantoprazole Sodium (Protonix) 40 mg DAILY PO Last administered on 08/02/18 09:54; Start 07/24/18 at 09:00 Polyethylene Glycol (miraLAX) 17 gm DAILY PO Last administered on 08/02/18 09:55; Start 07/24/18 at 09:00 Metoprolol Tartrate (Lopressor) 25 mg BID PO Last administered on 08/02/18 20:10; Start 07/24/18 at 21:00 Nifedipine (Procardia Xl) 60 mg BID PO Last administered on 08/02/18 20:12; Start 07/24/18 at 21:00 Quetiapine Fumarate (SEROquel) 25 mg BID92 PO Last administered on 08/02/18 13:43; Start 07/26/18 at 09:00 Olanzapine (ZyPREXA ZYDIS) 2.5 mg PRN Q2HR PRN PO agitation/psychosis Last administered on 08/02/18 00:27; Start 07/25/18 at 17:30 Divalproex Sodium (Depakote Sprinkles) 125 mg 0900,1300 PO Last administered on 08/02/18at 13:43; Start 07/26/18 at 13:00 Amoxicillin (Amoxil) 250 mg BID PO Last administered on 08/02/18at 20:10; Start 07/27/18 at 21:00; Stop 08/03/18 at 20:59 Sertraline HCl (Zoloft) 25 mg DAILY PO Last administered on 08/02/18at 09:53; Start 08/01/18 at 09:00; Stop 08/03/18 at 23:00 Sertraline HCl (Zoloft) 50 mg DAILY PO ; Start 08/04/18 at 09:00 Trazodone HCl (Desyrel) 50 mg PRN QHS PRN PO INSOMNIA, MAY REPEAT X1; Start 08/02/18 at 11:30 Active Scripts Active Reported Seroquel (Quetiapine Fumarate) 100 Mg Tablet 100 Mg PO QHS Miralax (Polyethylene Glycol 3350) 17 Gm Powd.pack 17 Gm PO DAILY Protonix (Pantoprazole Sodium) 40 Mg Tablet.dr 40 Mg PO DAILY Nifedipine Er (Nifedipine) 30 Mg Tablet.er 30 Mg PO BID Mirtazapine 15 Mg Tablet 15 Mg PO QHS Metoprolol Tartrate 50 Mg Tablet 50 Mg PO DAILY Melatonin 3 Mg Tablet 3 Mg PO QHS Probiotic (Lactobacillus Combo No.10) 1 Each Capsule 1 Each PO DAILY Vitamin D2 (Ergocalciferol (Vitamin D2)) 50,000 Unit Capsule 50,000 Unit PO WEEKLY MONDAY Depakote Er (Divalproex Sodium) 500 Mg Tab.er.24h 500 Mg PO QHS Vitamin B-12 (Cyanocobalamin (Vitamin B-12)) 1,000 Mcg Tablet 1,000 Mcg PO DAILY 14 Days Give daily for 14 days beginning 08/01/2018 Amlodipine Besylate 5 Mg Tablet 5 Mg PO DAILY Arimidex (Anastrozole) 1 Mg Tablet 1 Mg PO DAILY I have reviewed the current psychotropics carefully including drug interactions. Risk benefit ratio favors no change other than as noted in my dictated progress note. Diagnosis: Problems: (1) Anxiety disorder (2) Dementia, vascular, with delusions (3) Dementia, vascular, with depression (4) Dementia in Alzheimer's disease with delusions (5) Dementia in Alzheimer's disease with depression (6) Impulse control disorder CONNIE CAIN MD August 02, 2018 22:30
[2018-08-03 00:46] LABS: BILIRUBIN,URINE NEG (NEG); CLARITY,URINE HAZY; COLOR,URINE YELLOW; GLUCOSE,URINE NEG (NEG)
[2018-08-03 00:47] LABS: BACTERIA,URINE FEW /HPF (0-FEW); NITRITE,URINE POS (NEG); SQUAMOUS EPITHELIAL CELL,UR OCC /LPF; UROBILINOGEN,URINE 1 mg/dL (0.2 mg/dL); WBC,URINE 20-40 /HPF (0-4)
[2018-08-03 06:04] VITALS: BP 133/75
[2018-08-03] MEDS: ACETAMINOPHEN 325 MG TABLET PO PRN (06:10)
[2018-08-03] MEDS: METOPROLOL TART IMMED RELEASE 25 MG TABLET PO SCH ×2 (07:56→20:00)
[2018-08-03] MEDS: POLYETHYLENE GLYCOL 3350 17 GM PACKET. PO SCH (07:56)
[2018-08-03] MEDS: PANTOPRAZOLE 40 MG TABLET. PO SCH (07:56)
[2018-08-03] MEDS: LACTOBACILLUS RHAMNOSUS GG 1 CAPSULE. PO SCH (07:56)
[2018-08-03] MEDS: DIVALPROEX 125 MG CAP.SPRINK PO SCH ×2 (07:56→12:23)
[2018-08-03] MEDS: CYANOCOBALAMIN (VITAMIN B-12) 1,000 MCG TABLET. PO SCH (07:56)
[2018-08-03] MEDS: AMOXICILLIN 250 MG CAPSULE PO SCH (07:56)
[2018-08-03] MEDS: SERTRALINE 25 MG TABLET. PO SCH (07:57)
[2018-08-03] MEDS: QUEtiapine 25 MG TABLET. PO SCH ×2 (07:57→12:23)
[2018-08-03 16:25] VITALS: BP 152/77
[2018-08-03] MEDS: MELATONIN 3 MG TABLET PO SCH (19:58)
[2018-08-03] MEDS: MIRTAZAPINE 15 MG TABLET PO SCH (19:59)
[2018-08-03] MEDS: QUEtiapine 100 MG TABLET. PO SCH (19:59)
[2018-08-03] MEDS: DIVALPROEX ER 500 MG TAB.ER.24H PO SCH (20:01)
--- NOTE | 2018-08-03 22:41 | PDOC ---
Exam Note: Ayo Note: Please also refer to the separate dictated note~for this date of service dictated separately.~Patient seen individually. Discussed the patient with Nursing staff reviewed the chart.~Reviewed interim history and current functioning. Reviewed vital signs,~Labs/ Radiology~and current medications noted below. Continue current treatment with the changes noted in the dictated addendum note Assessment: Vital Signs: Vital Signs Date Time Temp Pulse Resp B/P (MAP) Pulse Ox O2 Delivery O2 Flow Rate FiO2 08/03/18 20:00 82 152/77 08/03/18 16:25 98.4 19 95 Room Air I&O Intake and Output 08/03/18 06:59 Intake Total 960 ml Balance 960 ml Intake Oral 960 ml Labs: Laboratory Tests Test 08/03/18 00:16 Urine Collection Type Unknown Urine Color Yellow Urine Clarity Hazy Urine pH 7.0 Urine Specific [place] 1.020 Urine Protein 30 mg/dl (NEG-TRACE) Urine Glucose (UA) Neg mg/dL (NEG) Urine Ketones (Stick) Neg mg/dL (NEG) Urine Blood Mod (NEG) Urine Nitrite Pos (NEG) Urine Bilirubin Neg (NEG) Urine Urobilinogen Dipstick 1 mg/dL (0.2 mg/dL) Urine Leukocyte Esterase Small (NEG) Urine RBC 1-2 /HPF (0-2) Urine WBC 20-40 /HPF (0-4) Urine Squamous Epithelial Cells Occ /LPF Urine Bacteria Few /HPF (0-FEW) Current Medications: Meds: Current Medications Acetaminophen (Tylenol) 650 mg PRN Q6HRS PRN PO PAIN / TEMP Last administered on 08/03/18at 06:10; Start 07/23/18 at 17:15 Multi-Ingredient Ointment (Analgesic [place]) 1 kenneth PRN QID PRN TP MUSCLE PAIN; Start 07/23/18 at 17:15 Al Hydroxide/Mg Hydroxide (Mylanta Plus Xs) 15 ml PRN AFTMEALHC PRN PO DYSPEPSIA; Start 07/23/18 at 17:15 Magnesium Hydroxide (Milk Of Magnesia) 2,400 mg PRN QHS PRN PO CONSTIPATION; Start 07/23/18 at 17:15 Divalproex Sodium (Depakote Er) 500 mg QHS PO Last administered on 08/03/18at 20:01; Start 07/23/18 at 22:00 Melatonin 3 mg QHS PO Last administered on 08/03/18 19:58; Start 07/23/18 at 22:00 Mirtazapine (Remeron) 15 mg QHS PO Last administered on 08/03/18 19:59; Start 07/23/18 at 22:00 Quetiapine Fumarate (SEROquel) 100 mg QHS PO Last administered on 08/03/18 19:59; Start 07/23/18 at 22:00 Cyanocobalamin (Vitamin B-12) 1,000 mcg DAILY PO Last administered on 08/03/18 07:56; Start 07/24/18 at 09:00 Amlodipine Besylate (Norvasc) 5 mg DAILY PO Last administered on 07/24/18 08:57; Start 07/24/18 at 09:00; Stop 07/24/18 at 15:21; Status DC Anastrozole (Arimidex) 1 mg DAILY PO Last administered on 07/24/18 09:00; Start 07/24/18 at 09:00; Stop 07/24/18 at 22:35; Status DC Vitamin D (Vitamin D3) 50,000 unit WEEKLY PO Last administered on 07/30/18 08:44; Start 07/30/18 at 09:00 Lactobacillus Rhamnosus (Culturelle) 1 cap DAILY PO Last administered on 08/03/18 07:56; Start 07/24/18 at 09:00 Metoprolol Tartrate (Lopressor) 50 mg DAILY PO Last administered on 07/24/18 08:57; Start 07/24/18 at 09:00; Stop 07/24/18 at 15:22; Status DC Nifedipine (Procardia Xl) 30 mg BID PO Last administered on 07/24/18 08:56; Start 07/23/18 at 22:00; Stop 07/24/18 at 15:22; Status DC Pantoprazole Sodium (Protonix) 40 mg DAILY PO Last administered on 08/03/18 07:56; Start 07/24/18 at 09:00 Polyethylene Glycol (miraLAX) 17 gm DAILY PO Last administered on 08/03/18 07:56; Start 07/24/18 at 09:00 Metoprolol Tartrate (Lopressor) 25 mg BID PO Last administered on 08/03/18 20:00; Start 07/24/18 at 21:00 Nifedipine (Procardia Xl) 60 mg BID PO Last administered on 08/03/18 20:00; S tart 07/24/18 at 21:00 Quetiapine Fumarate (SEROquel) 25 mg BID92 PO Last administered on 08/03/18 12:23; Start 07/26/18 at 09:00 Olanzapine (ZyPREXA ZYDIS) 2.5 mg PRN Q2HR PRN PO agitation/psychosis Last administered on 08/02/18 00:27; Start 07/25/18 at 17:30 Divalproex Sodium (Depakote Sprinkles) 125 mg 0900,1300 PO Last administered on 08/03/18 12:23; Start 07/26/18 at 13:00 Amoxicillin (Amoxil) 250 mg BID PO Last administered on 08/03/18 07:56; Start 07/27/18 at 21:00; Stop 08/03/18 at 20:59; Status DC Sertraline HCl (Zoloft) 25 mg DAILY PO Last administered on 08/03/18 07:57; Start 08/01/18 at 09:00; Stop 08/03/18 at 23:00 Sertraline HCl (Zoloft) 50 mg DAILY PO ; Start 08/04/18 at 09:00 Trazodone HCl (Desyrel) 50 mg PRN QHS PRN PO INSOMNIA, MAY REPEAT X1; Start 08/02/18 at 11:30 Active Scripts Active Reported Seroquel (Quetiapine Fumarate) 100 Mg Tablet 100 Mg PO QHS Miralax (Polyethylene Glycol 3350) 17 Gm Powd.pack 17 Gm PO DAILY Protonix (Pantoprazole Sodium) 40 Mg Tablet.dr 40 Mg PO DAILY Nifedipine Er (Nifedipine) 30 Mg Tablet.er 30 Mg PO BID Mirtazapine 15 Mg Tablet 15 Mg PO QHS Metoprolol Tartrate 50 Mg Tablet 50 Mg PO DAILY Melatonin 3 Mg Tablet 3 Mg PO QHS Probiotic (Lactobacillus Combo No.10) 1 Each Capsule 1 Each PO DAILY Vitamin D2 (Ergocalciferol (Vitamin D2)) 50,000 Unit Capsule 50,000 Unit PO WEEKLY MONDAY Depakote Er (Divalproex Sodium) 500 Mg Tab.er.24h 500 Mg PO QHS Vitamin B-12 (Cyanocobalamin (Vitamin B-12)) 1,000 Mcg Tablet 1,000 Mcg PO DAILY 14 Days Give daily for 14 days beginning 08/01/2018 Amlodipine Besylate 5 Mg Tablet 5 Mg PO DAILY Arimidex (Anastrozole) 1 Mg Tablet 1 Mg PO DAILY I have reviewed the current psychotropics carefully including drug interactions. Risk benefit ratio favors no change other than as noted in my dictated progress note. Diagnosis: Problems: (1) Anxiety disorder (2) Dementia, vascular, with delusions (3) Dementia, vascular, with depression (4) Dementia in Alzheimer's disease with delusions (5) Dementia in Alzheimer's disease with depression (6) Impulse control disorder CONNIE ACIN MD August 03, 2018 22:41
--- NOTE | 2018-08-04 01:02 | PN ---
DATE: 08/01/2018 PSYCHIATRIC PROGRESS NOTE This late entry 08/01/2018 covers elements not covered in my initial note. SUBJECTIVE: I met with the patient in the evening. The patient slept 8 hours previous night. She has been tearful with some mood lability consistent with pseudobulbar affect, but we are trying to avoid using Nuedexta. REVIEW OF SYSTEMS: No CV, , pulmonary, eye, ENT system symptoms on review. Reliability poor. MENTAL STATUS EXAM: Oriented to herself. Insight, judgment, recent and remote memory, attention, concentration, fund of knowledge poor, consistent with her diagnosis. We have avoided using Nuedexta since the mood lability could be contributed by her UTI. This is being treated and overall mood lability is better. LABORATORY DATA: Reviewed. IMPRESSION: Unchanged from initial note. PLAN: Continue Zoloft 25 mg a day, increasing in 3 days to 50 mg a day. Maintain Depakote 125 b.i.d., 500 at night. Melatonin 3 mg at bedtime, Remeron 15 mg at bedtime, Seroquel 25 mg b.i.d. and 100 mg at night, and Zyprexa p.r.n. Adjust further as clinically indicated. CONNIE CAIN MD DR: SUNNY/oni JOB#: [id number] / [id number]
--- NOTE | 2018-08-04 01:03 | PN ---
DATE: 08/02/2018 PSYCHIATRIC PROGRESS NOTE This late entry 08/02/2018 covers elements not covered in my initial note. SUBJECTIVE: I met with the patient in the evening of 08/02/2018 and staffed at a treatment team meeting with the entire team in the morning. The patient's daughter, Nancy, attended the treatment team meeting. We had a lengthy discussion about the patient's diagnosis, UTI progress, current psychotropics. The patient slept 2-1/2 hours previous night. Appetite 100%, compliant with medications, wandering. Yesterday, she was incontinent. She is more interactive in groups per activity therapy report. REVIEW OF SYSTEMS: No CV, , pulmonary, eye, ENT system symptoms on review. Reliability poor. MENTAL STATUS EXAM: Oriented to herself. Insight, judgment, recent and remote memory, attention, concentration, fund of knowledge poor, consistent with her diagnosis mentioned in my initial note. PLAN: Start trazodone 50 mg at bedtime p.r.n. insomnia, july repeat x 1. Rest unchanged per initial note. MAN Malissa CAIN MD DR: SUNNY/oni JOB#: [id number] / [id number]
[2018-08-04 06:12] VITALS: BP 127/57
[2018-08-04] MEDS: LACTOBACILLUS RHAMNOSUS GG 1 CAPSULE. PO SCH (07:59)
[2018-08-04] MEDS: DIVALPROEX 125 MG CAP.SPRINK PO SCH ×2 (08:03→13:00)
[2018-08-04] MEDS: POLYETHYLENE GLYCOL 3350 17 GM PACKET. PO SCH (08:03)
[2018-08-04] MEDS: QUEtiapine 25 MG TABLET. PO SCH ×2 (08:03→13:22)
[2018-08-04] MEDS: PANTOPRAZOLE 40 MG TABLET. PO SCH (08:03)
[2018-08-04] MEDS: METOPROLOL TART IMMED RELEASE 25 MG TABLET PO SCH ×2 (08:03→19:45)
[2018-08-04] MEDS: CYANOCOBALAMIN (VITAMIN B-12) 1,000 MCG TABLET. PO SCH (08:03)
[2018-08-04] MEDS: SERTRALINE 50 MG TABLET. PO SCH (08:03)
[2018-08-04 16:51] VITALS: BP 136/83
[2018-08-04] MEDS: QUEtiapine 100 MG TABLET. PO SCH (19:45)
[2018-08-04] MEDS: MIRTAZAPINE 15 MG TABLET PO SCH (19:45)
[2018-08-04] MEDS: DIVALPROEX ER 500 MG TAB.ER.24H PO SCH (19:45)
[2018-08-04] MEDS: MELATONIN 3 MG TABLET PO SCH (19:46)
--- NOTE | 2018-08-04 22:38 | PDOC ---
Exam Note: Ayo Note: Please also refer to the separate dictated note~for this date of service dictated separately.~Patient seen individually. Discussed the patient with Nursing staff reviewed the chart.~Reviewed interim history and current functioning. Reviewed vital signs,~Labs/ Radiology~and current medications noted below. Continue current treatment with the changes noted in the dictated addendum note Assessment: Vital Signs: Vital Signs Date Time Temp Pulse Resp B/P (MAP) Pulse Ox O2 Delivery O2 Flow Rate FiO2 08/04/18 19:47 92 136/83 08/04/18 16:51 97.9 18 97 08/03/18 16:25 Room Air I&O Intake and Output 08/04/18 06:59 Intake Total 780 ml Balance 780 ml Intake Oral 780 ml # Bowel Movements 1 Current Medications: Meds: Current Medications Acetaminophen (Tylenol) 650 mg PRN Q6HRS PRN PO PAIN / TEMP Last administered on 08/03/18at 06:10; Start 07/23/18 at 17:15 Multi-Ingredient Ointment (Analgesic [place]) 1 kenneth PRN QID PRN TP MUSCLE PAIN; Start 07/23/18 at 17:15 Al Hydroxide/Mg Hydroxide (Mylanta Plus Xs) 15 ml PRN AFTMEALHC PRN PO DYSPEPSIA; Start 07/23/18 at 17:15 Magnesium Hydroxide (Milk Of Magnesia) 2,400 mg PRN QHS PRN PO CONSTIPATION; Start 07/23/18 at 17:15 Divalproex Sodium (Depakote Er) 500 mg QHS PO Last administered on 08/04/18at 19:45; Start 07/23/18 at 22:00 Melatonin 3 mg QHS PO Last administered on 08/04/18at 19:46; Start 07/23/18 at 22:00 Mirtazapine (Remeron) 15 mg QHS PO Last administered on 08/04/18 19:45; Start 07/23/18 at 22:00 Quetiapine Fumarate (SEROquel) 100 mg QHS PO Last administered on 08/04/18at 19:45; Start 07/23/18 at 22:00 Cyanocobalamin (Vitamin B-12) 1,000 mcg DAILY PO Last administered on 08/04/18at 08:03; Start 07/24/18 at 09:00 Amlodipine Besylate (Norvasc) 5 mg DAILY PO Last administered on 07/24/18 08:57; Start 07/24/18 at 09:00; Stop 07/24/18 at 15:21; Status DC Anastrozole (Arimidex) 1 mg DAILY PO Last administered on 07/24/18 09:00; Start 07/24/18 at 09:00; Stop 07/24/18 at 22:35; Status DC Vitamin D (Vitamin D3) 50,000 unit WEEKLY PO Last administered on 07/30/18 08:44; Start 07/30/18 at 09:00 Lactobacillus Rhamnosus (Culturelle) 1 cap DAILY PO Last administered on 08/04/18 07:59; Start 07/24/18 at 09:00 Metoprolol Tartrate (Lopressor) 50 mg DAILY PO Last administered on 07/24/18 08:57; Start 07/24/18 at 09:00; Stop 07/24/18 at 15:22; Status DC Nifedipine (Procardia Xl) 30 mg BID PO Last administered on 07/24/18 08:56; Start 07/23/18 at 22:00; Stop 07/24/18 at 15:22; Status DC Pantoprazole Sodium (Protonix) 40 mg DAILY PO Last administered on 08/04/18 08:03; Start 07/24/18 at 09:00 Polyethylene Glycol (miraLAX) 17 gm DAILY PO Last administered on 08/04/18 08:03; Start 07/24/18 at 09:00 Metoprolol Tartrate (Lopressor) 25 mg BID PO Last administered on 08/04/18 19:45; Start 07/24/18 at 21:00 Nifedipine (Procardia Xl) 60 mg BID PO Last administered on 08/04/18 19:47; Start 07/24/18 at 21:00 Quetiapine Fumarate (SEROquel) 25 mg BID92 PO Last administered on 08/04/18 13:22; Start 07/26/18 at 09:00 Olanzapine (ZyPREXA ZYDIS) 2.5 mg PRN Q2HR PRN PO agitation/psychosis Last administered on 08/02/18 00:27; Start 07/25/18 at 17:30 Divalproex Sodium (Depakote Sprinkles) 125 mg 0900,1300 PO Last administered on 08/04/18at 13:00; Start 07/26/18 at 13:00 Amoxicillin (Amoxil) 250 mg BID PO Last administered on 08/03/18at 07:56; Start 07/27/18 at 21:00; Stop 08/03/18 at 20:59; Status DC Sertraline HCl (Zoloft) 25 mg DAILY PO Last administered on 08/03/18at 07:57; Start 08/01/18 at 09:00; Stop 08/03/18 at 23:00; Status DC Sertraline HCl (Zoloft) 50 mg DAILY PO Last administered on 08/04/18at 08:03; Start 08/04/18 at 09:00 Trazodone HCl (Desyrel) 50 mg PRN QHS PRN PO INSOMNIA, MAY REPEAT X1; Start 08/02/18 at 11:30 Active Scripts Active Reported Seroquel (Quetiapine Fumarate) 100 Mg Tablet 100 Mg PO QHS Miralax (Polyethylene Glycol 3350) 17 Gm Powd.pack 17 Gm PO DAILY Protonix (Pantoprazole Sodium) 40 Mg Tablet.dr 40 Mg PO DAILY Nifedipine Er (Nifedipine) 30 Mg Tablet.er 30 Mg PO BID Mirtazapine 15 Mg Tablet 15 Mg PO QHS Metoprolol Tartrate 50 Mg Tablet 50 Mg PO DAILY Melatonin 3 Mg Tablet 3 Mg PO QHS Probiotic (Lactobacillus Combo No.10) 1 Each Capsule 1 Each PO DAILY Vitamin D2 (Ergocalciferol (Vitamin D2)) 50,000 Unit Capsule 50,000 Unit PO WEEKLY MONDAY Depakote Er (Divalproex Sodium) 500 Mg Tab.er.24h 500 Mg PO QHS Vitamin B-12 (Cyanocobalamin (Vitamin B-12)) 1,000 Mcg Tablet 1,000 Mcg PO DAILY 14 Days Give daily for 14 days beginning 08/01/2018 Amlodipine Besylate 5 Mg Tablet 5 Mg PO DAILY Arimidex (Anastrozole) 1 Mg Tablet 1 Mg PO DAILY I have reviewed the current psychotropics carefully including drug interactions. Risk benefit ratio favors no change other than as noted in my dictated progress note. Diagnosis: Problems: (1) Anxiety disorder (2) Dementia, vascular, with delusions (3) Dementia, vascular, with depression (4) Dementia in Alzheimer's disease with delusions (5) Dementia in Alzheimer's disease with depression (6) Impulse control disorder CONNIE CAIN MD Aug 04, 2018 22:38
[2018-08-05 06:25] VITALS: BP 137/72
[2018-08-05 07:25] LABS: BASO % 1 % (0-3); EOS # 0.1 x10^3/uL (0.0-0.7); EOS % 3 % (0-3); HEMATOCRIT 37.9 % (36.0-47.0); HEMOGLOBIN 12.7 g/dL (12.0-15.5); LYMPH # 0.8 x10^3/uL (1.0-4.8); LYMPH % 17 % (24-48); MEAN CORPUSCULAR HEMOGLOBIN 34 pg (25-35); MEAN CORPUSCULAR HGB CONC 34 g/dL (31-37); MEAN CORPUSCULAR VOLUME 101 fL (79-100); MONO # 0.4 x10^3/uL (0.0-1.1); MONO % 8 % (0-9); NEUT # 3.4 x10^3uL (1.8-7.7); NEUT % 72 % (31-73); PLATELET COUNT 182 x10^3/uL (140-400); RED BLOOD COUNT 3.76 x10^6/uL (3.50-5.40); RED CELL DISTRIBUTION WIDTH 13.7 % (11.5-14.5); WHITE BLOOD COUNT 4.7 x10^3/uL (4.0-11.0)
[2018-08-05 07:54] LABS: ALBUMIN 3.1 g/dL (3.4-5.0); ALBUMIN/GLOBULIN RATIO 0.8 (1.0-1.7); CALCIUM 9.4 mg/dL (8.5-10.1); GFR 53.1; POTASSIUM 4.1 mmol/L (3.5-5.1); TOTAL BILIRUBIN 0.3 mg/dL (0.2-1.0); TOTAL PROTEIN 7.2 g/dL (6.4-8.2)
[2018-08-05] MEDS: LACTOBACILLUS RHAMNOSUS GG 1 CAPSULE. PO SCH (08:04)
[2018-08-05] MEDS: POLYETHYLENE GLYCOL 3350 17 GM PACKET. PO SCH (08:04)
[2018-08-05] MEDS: QUEtiapine 25 MG TABLET. PO SCH ×2 (08:05→12:30)
[2018-08-05] MEDS: METOPROLOL TART IMMED RELEASE 25 MG TABLET PO SCH ×2 (08:05→20:12)
[2018-08-05] MEDS: DIVALPROEX 125 MG CAP.SPRINK PO SCH ×2 (08:05→12:29)
[2018-08-05] MEDS: PANTOPRAZOLE 40 MG TABLET. PO SCH (08:05)
[2018-08-05] MEDS: SERTRALINE 50 MG TABLET. PO SCH (08:06)
[2018-08-05] MEDS: CYANOCOBALAMIN (VITAMIN B-12) 1,000 MCG TABLET. PO SCH (08:07)
[2018-08-05 16:24] VITALS: BP 150/79
[2018-08-05] MEDS: MELATONIN 3 MG TABLET PO SCH (20:11)
[2018-08-05] MEDS: MIRTAZAPINE 15 MG TABLET PO SCH (20:11)
[2018-08-05] MEDS: DIVALPROEX ER 500 MG TAB.ER.24H PO SCH (20:11)
[2018-08-05] MEDS: QUEtiapine 100 MG TABLET. PO SCH (20:11)
--- NOTE | 2018-08-05 22:42 | PDOC ---
Exam Note: Ayo Note: Please also refer to the separate dictated note~for this date of service dictated separately.~Patient seen individually. Discussed the patient with Nursing staff reviewed the chart.~Reviewed interim history and current functioning. Reviewed vital signs,~Labs/ Radiology~and current medications noted below. Continue current treatment with the changes noted in the dictated addendum note Assessment: Vital Signs: Vital Signs Date Time Temp Pulse Resp B/P (MAP) Pulse Ox O2 Delivery O2 Flow Rate FiO2 08/05/18 20:12 93 150/79 08/05/18 16:24 97.9 17 98 08/03/18 16:25 Room Air I&O Intake and Output 08/05/18 06:59 Intake Total 960 ml Balance 960 ml Intake Oral 960 ml # Bowel Movements 2 Labs: Laboratory Tests Test 08/05/18 07:17 White Blood Count 4.7 x10^3/uL (4.0-11.0) Red Blood Count 3.76 x10^6/uL (3.50-5.40) Hemoglobin 12.7 g/dL (12.0-15.5) Hematocrit 37.9 % (36.0-47.0) Mean Corpuscular Volume 101 fL (79-100) H Mean Corpuscular Hemoglobin 34 pg (25-35) Mean Corpuscular Hemoglobin Concent 34 g/dL (31-37) Red Cell Distribution Width 13.7 % (11.5-14.5) Platelet Count 182 x10^3/uL (140-400) Neutrophils (%) (Auto) 72 % (31-73) Lymphocytes (%) (Auto) 17 % (24-48) L Monocytes (%) (Auto) 8 % (0-9) Eosinophils (%) (Auto) 3 % (0-3) Basophils (%) (Auto) 1 % (0-3) Neutrophils # (Auto) 3.4 x10^3uL (1.8-7.7) Lymphocytes # (Auto) 0.8 x10^3/uL (1.0-4.8) L Monocytes # (Auto) 0.4 x10^3/uL (0.0-1.1) Eosinophils # (Auto) 0.1 x10^3/uL (0.0-0.7) Basophils # (Auto) 0.0 x10^3/uL (0.0-0.2) Sodium Level 146 mmol/L (136-145) H Potassium Level 4.1 mmol/L (3.5-5.1) Chloride Level 106 mmol/L (98-107) Carbon Dioxide Level 32 mmol/L (21-32) Anion Gap 8 (6-14) Blood Urea Nitrogen 23 mg/dL (7-20) H Creatinine 1.0 mg/dL (0.6-1.0) Estimated GFR (Cockcroft-Gault) 53.1 BUN/Creatinine Ratio 23 (6-20) H Glucose Level 95 mg/dL (70-99) Calcium Level 9.4 mg/dL (8.5-10.1) Total Bilirubin 0.3 mg/dL (0.2-1.0) Aspartate Amino Transferase (AST) 19 U/L (15-37) Alanine Aminotransferase (ALT) 16 U/L (14-59) Alkaline Phosphatase 57 U/L (46-116) Total Protein 7.2 g/dL (6.4-8.2) Albumin 3.1 g/dL (3.4-5.0) L Albumin/Globulin Ratio 0.8 (1.0-1.7) L Current Medications: Meds: Current Medications Acetaminophen (Tylenol) 650 mg PRN Q6HRS PRN PO PAIN / TEMP Last administered on 08/03/18at 06:10; Start 07/23/18 at 17:15 Multi-Ingredient Ointment (Analgesic [place]) 1 kenneth PRN QID PRN TP MUSCLE PAIN; Start 07/23/18 at 17:15 Al Hydroxide/Mg Hydroxide (Mylanta Plus Xs) 15 ml PRN AFTMEALHC PRN PO DYSPEPSIA; Start 07/23/18 at 17:15 Magnesium Hydroxide (Milk Of Magnesia) 2,400 mg PRN QHS PRN PO CONSTIPATION; Start 07/23/18 at 17:15 Divalproex Sodium (Depakote Er) 500 mg QHS PO Last administered on 08/05/18at 20:11; Start 07/23/18 at 22:00 Melatonin 3 mg QHS PO Last administered on 08/05/18at 20:11; Start 07/23/18 at 22:00 Mirtazapine (Remeron) 15 mg QHS PO Last administered on 08/05/18 20:11; Start 07/23/18 at 22:00 Quetiapine Fumarate (SEROquel) 100 mg QHS PO Last administered on 08/05/18 20:11; Start 07/23/18 at 22:00 Cyanocobalamin (Vitamin B-12) 1,000 mcg DAILY PO Last administered on 08/05/18 08:07; Start 07/24/18 at 09:00 Amlodipine Besylate (Norvasc) 5 mg DAILY PO Last administered on 07/24/18 08:57; Start 07/24/18 at 09:00; Stop 07/24/18 at 15:21; Status DC Anastrozole (Arimidex) 1 mg DAILY PO Last administered on 07/24/18 09:00; Start 07/24/18 at 09:00; Stop 07/24/18 at 22:35; Status DC Vitamin D (Vitamin D3) 50,000 unit WEEKLY PO Last administered on 07/30/18 08:44; Start 07/30/18 at 09:00 Lactobacillus Rhamnosus (Culturelle) 1 cap DAILY PO Last administered on 08/05/18 08:04; Start 07/24/18 at 09:00 Metoprolol Tartrate (Lopressor) 50 mg DAILY PO Last administered on 07/24/18 08:57; Start 07/24/18 at 09:00; Stop 07/24/18 at 15:22; Status DC Nifedipine (Procardia Xl) 30 mg BID PO Last administered on 07/24/18 08:56; Start 07/23/18 at 22:00; Stop 07/24/18 at 15:22; Status DC Pantoprazole Sodium (Protonix) 40 mg DAILY PO Last administered on 08/05/18 08:05; Start 07/24/18 at 09:00 Polyethylene Glycol (miraLAX) 17 gm DAILY PO Last administered on 08/05/18 08:04; Start 07/24/18 at 09:00 Metoprolol Tartrate (Lopressor) 25 mg BID PO Last administered on 08/05/18 20:12; Start 07/24/18 at 21:00 Nifedipine (Procardia Xl) 60 mg BID PO Last administered on 08/05/18 20:12; Start 07/24/18 at 21:00 Quetiapine Fumarate (SEROquel) 25 mg BID92 PO Last administered on 08/05/18 12:30; Start 07/26/18 at 09:00 Olanzapine (ZyPREXA ZYDIS) 2.5 mg PRN Q2HR PRN PO agitation/psychosis Last administered on 08/05/18 12:30; Start 07/25/18 at 17:30 Divalproex Sodium (Depakote Sprinkles) 125 mg 0900,1300 PO Last administered on 08/05/18at 12:29; Start 07/26/18 at 13:00 Amoxicillin (Amoxil) 250 mg BID PO Last administered on 08/03/18at 07:56; Start 07/27/18 at 21:00; Stop 08/03/18 at 20:59; Status DC Sertraline HCl (Zoloft) 25 mg DAILY PO Last administered on 08/03/18 07:57; Start 08/01/18 at 09:00; Stop 08/03/18 at 23:00; Status DC Sertraline HCl (Zoloft) 50 mg DAILY PO Last administered on 08/05/18at 08:06; Start 08/04/18 at 09:00 Trazodone HCl (Desyrel) 50 mg PRN QHS PRN PO INSOMNIA, MAY REPEAT X1; Start 08/02/18 at 11:30 Active Scripts Active Reported Seroquel (Quetiapine Fumarate) 100 Mg Tablet 100 Mg PO QHS Miralax (Polyethylene Glycol 3350) 17 Gm Powd.pack 17 Gm PO DAILY Protonix (Pantoprazole Sodium) 40 Mg Tablet.dr 40 Mg PO DAILY Nifedipine Er (Nifedipine) 30 Mg Tablet.er 30 Mg PO BID Mirtazapine 15 Mg Tablet 15 Mg PO QHS Metoprolol Tartrate 50 Mg Tablet 50 Mg PO DAILY Melatonin 3 Mg Tablet 3 Mg PO QHS Probiotic (Lactobacillus Combo No.10) 1 Each Capsule 1 Each PO DAILY Vitamin D2 (Ergocalciferol (Vitamin D2)) 50,000 Unit Capsule 50,000 Unit PO WEEKLY MONDAY Depakote Er (Divalproex Sodium) 500 Mg Tab.er.24h 500 Mg PO QHS Vitamin B-12 (Cyanocobalamin (Vitamin B-12)) 1,000 Mcg Tablet 1,000 Mcg PO DAILY 14 Days Give daily for 14 days beginning 08/01/2018 Amlodipine Besylate 5 Mg Tablet 5 Mg PO DAILY Arimidex (Anastrozole) 1 Mg Tablet 1 Mg PO DAILY I have reviewed the current psychotropics carefully including drug interactions. Risk benefit ratio favors no change other than as noted in my dictated progress note. Diagnosis: Problems: (1) Anxiety disorder (2) Dementia, vascular, with delusions (3) Dementia, vascular, with depression (4) Dementia in Alzheimer's disease with delusions (5) Dementia in Alzheimer's disease with depression (6) Impulse control disorder CONNIE CAIN MD Aug 05, 2018 22:42
--- NOTE | 2018-08-05 23:45 | PN ---
DATE: 08/04/2018 PSYCHIATRIC PROGRESS NOTE This is a late entry, 08/04/2018, covers elements not covered in my initial note. SUBJECTIVE: I met with the patient in the evening. The patient slept 5-1/4 hours previous night. The patient remains confused. Previous night, she had a very difficult night, incontinent on the floor. During the day on 08/04/2018, tearful, intrusive before lunch, received p.r.n. Zyprexa. No CV, , pulmonary, eye, ENT system symptoms on review. Reliability poor. MENTAL STATUS EXAM: Oriented to herself. Insight, judgment, recent and remote memory, attention, concentration, fund of knowledge poor, consistent with her diagnosis. I met with her in her room. She is totally disorganized, tangential, but smiling at times, tearful at times. LABORATORY DATA: Reviewed. IMPRESSION: Unchanged from initial note. PLAN: No change from initial note. CONNIE CAIN MD DR: SUNNY/oni JOB#: [id number] / [id number]
[2018-08-06 06:26] VITALS: BP 152/85
--- NOTE | 2018-08-06 06:42 | PN ---
DATE: 08/03/2018 PSYCHIATRIC PROGRESS NOTE This late entry 08/03/2018 covers elements not covered in my initial note. SUBJECTIVE: I met with the patient in the evening. The patient slept 7-1/2 hours previous night. Previous night, she was disrobing, urinated on the floor, confused. UA is being repeated as it is unclear why the Amoxil is adequate for UTI. REVIEW OF SYSTEMS: No CV, , pulmonary, eye, ENT system symptoms on review. Reliability poor. MENTAL STATUS EXAM: Oriented to herself. Insight, judgment, recent and remote memory, attention, concentration, fund of knowledge poor, consistent with her diagnosis mentioned in my initial note. PLAN: No change from initial note. MAN Malissa CAIN MD DR: SUNNY/oni JOB#: [id number] / [id number]
--- NOTE | 2018-08-06 08:53 | PN ---
DATE: 08/05/2018 PSYCHIATRIC PROGRESS NOTE This note covers elements not covered in my initial note 08/05/2018. SUBJECTIVE: I met with the patient in the evening. The patient slept 7-1/4 hours previous night. She is confused, stripped herself naked the previous night. Today compliant with medications. REVIEW OF SYSTEMS: No CV, , pulmonary, eye, ENT system symptoms on review. Reliability poor. MENTAL STATUS EXAM: Oriented to herself. Insight, judgment, recent and remote memory, attention, concentration, fund of knowledge poor, consistent with her diagnosis mentioned in my initial note. PLAN: No change from initial note. MAN Malissa CAIN MD DR: SUNNY/oni JOB#: [id number] / [id number]
[2018-08-06] MEDS: POLYETHYLENE GLYCOL 3350 17 GM PACKET. PO SCH (09:24)
[2018-08-06] MEDS: LACTOBACILLUS RHAMNOSUS GG 1 CAPSULE. PO SCH (09:24)
[2018-08-06] MEDS: DIVALPROEX 125 MG CAP.SPRINK PO SCH ×2 (09:24→13:14)
[2018-08-06] MEDS: METOPROLOL TART IMMED RELEASE 25 MG TABLET PO SCH ×3 (09:24→22:37)
[2018-08-06] MEDS: SERTRALINE 50 MG TABLET. PO SCH (09:26)
[2018-08-06] MEDS: PANTOPRAZOLE 40 MG TABLET. PO SCH (09:26)
[2018-08-06] MEDS: CYANOCOBALAMIN (VITAMIN B-12) 1,000 MCG TABLET. PO SCH (09:26)
[2018-08-06] MEDS: QUEtiapine 25 MG TABLET. PO SCH ×2 (09:26→13:14)
[2018-08-06] MEDS: CHOLECALCIFEROL (VITAMIN D3) 50,000 UNIT CAPSULE PO SCH (09:29)
[2018-08-06 16:05] VITALS: BP 152/79
[2018-08-06] MEDS: DIVALPROEX ER 500 MG TAB.ER.24H PO SCH ×2 (19:22→21:00)
[2018-08-06] MEDS: MELATONIN 3 MG TABLET PO SCH ×2 (19:23→21:00)
[2018-08-06] MEDS: MIRTAZAPINE 15 MG TABLET PO SCH ×2 (19:23→22:37)
[2018-08-06] MEDS: risperiDONE 0.25 MG TABLET. PO SCH ×2 (19:31→22:37)
--- NOTE | 2018-08-06 22:27 | PDOC ---
Exam Note: Ayo Note: Please also refer to the separate dictated note~for this date of service dictated separately.~Patient seen individually. Discussed the patient with Nursing staff reviewed the chart.~Reviewed interim history and current functioning. Reviewed vital signs,~Labs/ Radiology~and current medications noted below. Continue current treatment with the changes noted in the dictated addendum note Assessment: Vital Signs: Vital Signs Date Time Temp Pulse Resp B/P (MAP) Pulse Ox O2 Delivery O2 Flow Rate FiO2 08/06/18 21:00 61 152/79 08/06/18 16:05 97.3 18 97 08/03/18 16:25 Room Air I&O Intake and Output 08/06/18 07:00 Intake Total 760 ml Balance 760 ml Intake Oral 760 ml Current Medications: Meds: Current Medications Acetaminophen (Tylenol) 650 mg PRN Q6HRS PRN PO PAIN / TEMP Last administered on 08/03/18at 06:10; Start 07/23/18 at 17:15 Multi-Ingredient Ointment (Analgesic [place]) 1 kenneth PRN QID PRN TP MUSCLE PAIN; Start 07/23/18 at 17:15 Al Hydroxide/Mg Hydroxide (Mylanta Plus Xs) 15 ml PRN AFTMEALHC PRN PO DYSPEPSIA; Start 07/23/18 at 17:15 Magnesium Hydroxide (Milk Of Magnesia) 2,400 mg PRN QHS PRN PO CONSTIPATION; Start 07/23/18 at 17:15 Divalproex Sodium (Depakote Er) 500 mg QHS PO Last administered on 08/05/18 20:11; Start 07/23/18 at 22:00 Melatonin 3 mg QHS PO Last administered on 08/05/18 20:11; Start 07/23/18 at 22:00 Mirtazapine (Remeron) 15 mg QHS PO Last administered on 08/05/18 20:11; Start 07/23/18 at 22:00 Quetiapine Fumarate (SEROquel) 100 mg QHS PO Last administered on 08/05/18 20:11; Start 07/23/18 at 22:00; Stop 08/06/18 at 18:27; Status DC Cyanocobalamin (Vitamin B-12) 1,000 mcg DAILY PO Last administered on 08/06/18at 09:26; Start 07/24/18 at 09:00 Amlodipine Besylate (Norvasc) 5 mg DAILY PO Last administered on 07/24/18 08:57; Start 07/24/18 at 09:00; Stop 07/24/18 at 15:21; Status DC Anastrozole (Arimidex) 1 mg DAILY PO Last administered on 07/24/18 09:00; Start 07/24/18 at 09:00; Stop 07/24/18 at 22:35; Status DC Vitamin D (Vitamin D3) 50,000 unit WEEKLY PO Last administered on 08/06/18 09:29; Start 07/30/18 at 09:00 Lactobacillus Rhamnosus (Culturelle) 1 cap DAILY PO Last administered on 08/06/18 09:24; Start 07/24/18 at 09:00 Metoprolol Tartrate (Lopressor) 50 mg DAILY PO Last administered on 07/24/18 08:57; Start 07/24/18 at 09:00; Stop 07/24/18 at 15:22; Status DC Nifedipine (Procardia Xl) 30 mg BID PO Last administered on 07/24/18 08:56; Start 07/23/18 at 22:00; Stop 07/24/18 at 15:22; Status DC Pantoprazole Sodium (Protonix) 40 mg DAILY PO Last administered on 08/06/18 09:26; Start 07/24/18 at 09:00 Polyethylene Glycol (miraLAX) 17 gm DAILY PO Last administered on 08/06/18 09:24; Start 07/24/18 at 09:00 Metoprolol Tartrate (Lopressor) 25 mg BID PO Last administered on 08/06/18 09:24; Start 07/24/18 at 21:00 Nifedipine (Procardia Xl) 60 mg BID PO Last administered on 08/06/18 09:26; Start 07/24/18 at 21:00 Quetiapine Fumarate (SEROquel) 25 mg BID92 PO Last administered on 08/06/18 13:14; Start 07/26/18 at 09:00; Stop 08/06/18 at 18:27; Status DC Olanzapine (ZyPREXA ZYDIS) 2.5 mg PRN Q2HR PRN PO agitation/psychosis Last administered on 08/06/18 17:15; Start 07/25/18 at 17:30 Divalproex Sodium (Depakote Sprinkles) 125 mg 0900,1300 PO Last administered on 08/06/18at 13:14; Start 07/26/18 at 13:00 Amoxicillin (Amoxil) 250 mg BID PO Last administered on 08/03/18at 07:56; Start 07/27/18 at 21:00; Stop 08/03/18 at 20:59; Status DC Sertraline HCl (Zoloft) 25 mg DAILY PO Last administered on 08/03/18at 07:57; Start 08/01/18 at 09:00; Stop 08/03/18 at 23:00; Status DC Sertraline HCl (Zoloft) 50 mg DAILY PO Last administered on 08/06/18at 09:26; Start 08/04/18 at 09:00; Stop 08/06/18 at 16:51; Status DC Trazodone HCl (Desyrel) 50 mg PRN QHS PRN PO INSOMNIA, MAY REPEAT X1; Start 08/02/18 at 11:30 Fluvoxamine Maleate (Luvox) 25 mg DAILY PO ; Start 08/07/18 at 09:00; Stop 08/09/18 at 12:00 Fluvoxamine Maleate (Luvox) 50 mg DAILY PO ; Start 08/10/18 at 09:00 Risperidone (RisperDAL) 0.125 mg DAILY PO ; Start 08/07/18 at 09:00 Risperidone (RisperDAL) 0.25 mg HS PO ; Start 08/06/18 at 21:00 Active Scripts Active Reported Seroquel (Quetiapine Fumarate) 100 Mg Tablet 100 Mg PO QHS Miralax (Polyethylene Glycol 3350) 17 Gm Powd.pack 17 Gm PO DAILY Protonix (Pantoprazole Sodium) 40 Mg Tablet.dr 40 Mg PO DAILY Nifedipine Er (Nifedipine) 30 Mg Tablet.er 30 Mg PO BID Mirtazapine 15 Mg Tablet 15 Mg PO QHS Metoprolol Tartrate 50 Mg Tablet 50 Mg PO DAILY Melatonin 3 Mg Tablet 3 Mg PO QHS Probiotic (Lactobacillus Combo No.10) 1 Each Capsule 1 Each PO DAILY Vitamin D2 (Ergocalciferol (Vitamin D2)) 50,000 Unit Capsule 50,000 Unit PO WEEKLY MONDAY Depakote Er (Divalproex Sodium) 500 Mg Tab.er.24h 500 Mg PO QHS Vitamin B-12 (Cyanocobalamin (Vitamin B-12)) 1,000 Mcg Tablet 1,000 Mcg PO DAILY 14 Days Give daily for 14 days beginning 08/01/2018 Amlodipine Besylate 5 Mg Tablet 5 Mg PO DAILY Arimidex (Anastrozole) 1 Mg Tablet 1 Mg PO DAILY I have reviewed the current psychotropics carefully including drug interactions. Risk benefit ratio favors no change other than as noted in my dictated progress note. Diagnosis: Problems: (1) Anxiety disorder (2) Dementia, vascular, with delusions (3) Dementia, vascular, with depression (4) Dementia in Alzheimer's disease with delusions (5) Dementia in Alzheimer's disease with depression (6) Impulse control disorder CONNIE CAIN MD Aug 06, 2018 22:27
[2018-08-06] MEDS: traZODone 50 MG TABLET. PO PRN (22:37)
[2018-08-07 05:46] VITALS: BP 162/87
[2018-08-07] MEDS: POLYETHYLENE GLYCOL 3350 17 GM PACKET. PO SCH (08:39)
[2018-08-07] MEDS: DIVALPROEX 125 MG CAP.SPRINK PO SCH ×2 (08:41→12:09)
[2018-08-07] MEDS: LACTOBACILLUS RHAMNOSUS GG 1 CAPSULE. PO SCH (08:41)
[2018-08-07] MEDS: METOPROLOL TART IMMED RELEASE 25 MG TABLET PO SCH ×2 (08:43→17:49)
[2018-08-07] MEDS: PANTOPRAZOLE 40 MG TABLET. PO SCH (08:52)
[2018-08-07] MEDS: CYANOCOBALAMIN (VITAMIN B-12) 1,000 MCG TABLET. PO SCH (08:52)
[2018-08-07] MEDS: risperiDONE 0.25 MG TABLET. PO SCH ×2 (10:48→17:51)
[2018-08-07 16:29] VITALS: BP_DIAS 124
[2018-08-07] MEDS: DIVALPROEX ER 500 MG TAB.ER.24H PO SCH (17:47)
[2018-08-07] MEDS: MELATONIN 3 MG TABLET PO SCH (17:47)
[2018-08-07] MEDS: MIRTAZAPINE 15 MG TABLET PO SCH (17:50)
--- NOTE | 2018-08-07 22:12 | PN ---
DATE: 08/06/2018 PSYCHIATRIC PROGRESS NOTE This late entry 08/06/2018 covers elements not covered in my initial note 08/06/2018. SUBJECTIVE: I met with the patient in the evening. The patient slept 7-1/2 hours previous night. She had good day. She remains confused, anxious, somewhat delusional, looking for a boy. As I met with her at length in the evening of 08/06/2018, she is convinced that people are plotting and scheming against her. There is nothing I could do that would change her mind. She reluctantly admitted may be my mind might be making some things up, but this is true. She remains somewhat obsessive. REVIEW OF SYSTEMS: No CV, , pulmonary, eye, ENT system symptoms on review. Reliability poor. MENTAL STATUS EXAM: Oriented to herself. Insight, judgment, recent and remote memory, attention, concentration, fund of knowledge poor, consistent with her diagnoses. IMPRESSION: Major neurocognitive disorder, Alzheimer, vascular with delusion, depression, behavioral disturbance; anxiety disorder, unspecified; impulse control disorder, unspecified; obsessive-compulsive disorder. PLAN: Seroquel has been changed to Risperdal 0.125 mg a.m., 0.25 mg p.o. at bedtime for psychotic symptoms and we will change the Zoloft to Luvox 25 mg a day, increasing to 50 in 3 days for obsessive thought processes. May need to increase Risperdal further in due course. Maintain Depakote, melatonin, Remeron at current dosage. CONNIE CAIN MD DR: SUNNY/oni JOB#: [id number] / [id number]
--- NOTE | 2018-08-07 22:43 | PDOC ---
Exam Note: Ayo Note: Please also refer to the separate dictated note~for this date of service dictated separately.~Patient seen individually. Discussed the patient with Nursing staff reviewed the chart.~Reviewed interim history and current functioning. Reviewed vital signs,~Labs/ Radiology~and current medications noted below. Continue current treatment with the changes noted in the dictated addendum note Assessment: Vital Signs: Vital Signs Date Time Temp Pulse Resp B/P (MAP) Pulse Ox O2 Delivery O2 Flow Rate FiO2 08/07/18 17:50 73 124/71 08/07/18 16:29 97.9 18 97 08/03/18 16:25 Room Air I&O Intake and Output 08/07/18 06:59 Intake Total 1080 ml Balance 1080 ml Intake Oral 1080 ml # Voids 1 Current Medications: Meds: Current Medications Acetaminophen (Tylenol) 650 mg PRN Q6HRS PRN PO PAIN / TEMP Last administered on 08/03/18at 06:10; Start 07/23/18 at 17:15 Multi-Ingredient Ointment (Analgesic [place]) 1 kenneth PRN QID PRN TP MUSCLE PAIN; Start 07/23/18 at 17:15 Al Hydroxide/Mg Hydroxide (Mylanta Plus Xs) 15 ml PRN AFTMEALHC PRN PO DYSPE PSIA; Start 07/23/18 at 17:15 Magnesium Hydroxide (Milk Of Magnesia) 2,400 mg PRN QHS PRN PO CONSTIPATION; Start 07/23/18 at 17:15 Divalproex Sodium (Depakote Er) 500 mg QHS PO Last administered on 08/07/18 17:47; Start 07/23/18 at 22:00; Stop 08/07/18 at 18:05; Status DC Melatonin 3 mg QHS PO Last administered on 08/07/18at 17:47; Start 07/23/18 at 22:00 Mirtazapine (Remeron) 15 mg QHS PO Last administered on 08/07/18at 17:50; Start 07/23/18 at 22:00 Quetiapine Fumarate (SEROquel) 100 mg QHS PO Last administered on 08/05/18 20:11; Start 07/23/18 at 22:00; Stop 08/06/18 at 18:27; Status DC Cyanocobalamin (Vitamin B-12) 1,000 mcg DAILY PO Last administered on 08/07/18 08:52; Start 07/24/18 at 09:00 Amlodipine Besylate (Norvasc) 5 mg DAILY PO Last administered on 07/24/18 08:57; Start 07/24/18 at 09:00; Stop 07/24/18 at 15:21; Status DC Anastrozole (Arimidex) 1 mg DAILY PO Last administered on 07/24/18 09:00; Start 07/24/18 at 09:00; Stop 07/24/18 at 22:35; Status DC Vitamin D (Vitamin D3) 50,000 unit WEEKLY PO Last administered on 08/06/18 09:29; Start 07/30/18 at 09:00 Lactobacillus Rhamnosus (Culturelle) 1 cap DAILY PO Last administered on 08/07/18 08:41; Start 07/24/18 at 09:00 Metoprolol Tartrate (Lopressor) 50 mg DAILY PO Last administered on 07/24/18 08:57; Start 07/24/18 at 09:00; Stop 07/24/18 at 15:22; Status DC Nifedipine (Procardia Xl) 30 mg BID PO Last administered on 07/24/18 08:56; Start 07/23/18 at 22:00; Stop 07/24/18 at 15:22; Status DC Pantoprazole Sodium (Protonix) 40 mg DAILY PO Last administered on 08/07/18 08:52; Start 07/24/18 at 09:00 Polyethylene Glycol (miraLAX) 17 gm DAILY PO Last administered on 08/07/18 08:39; Start 07/24/18 at 09:00 Metoprolol Tartrate (Lopressor) 25 mg BID PO Last administered on 08/07/18 17:49; Start 07/24/18 at 21:00 Nifedipine (Procardia Xl) 60 mg BID PO Last administered on 08/07/18 17:50; Start 07/24/18 at 21:00 Quetiapine Fumarate (SEROquel) 25 mg BID92 PO Last administered on 08/06/18 13:14; Start 07/26/18 at 09:00; Stop 08/06/18 at 18:27; Status DC Olanzapine (ZyPREXA ZYDIS) 2.5 mg PRN Q2HR PRN PO agitation/psychosis Last administered on 08/07/18 15:05; Start 07/25/18 at 17:30 Divalproex Sodium (Depakote Sprinkles) 125 mg 0900,1300 PO Last administered on 08/07/18 12:09; Start 07/26/18 at 13:00 Amoxicillin (Amoxil) 250 mg BID PO Last administered on 08/03/18 07:56; Start 07/27/18 at 21:00; Stop 08/03/18 at 20:59; Status DC Sertraline HCl (Zoloft) 25 mg DAILY PO Last administered on 08/03/18 07:57; Start 08/01/18 at 09:00; Stop 08/03/18 at 23:00; Status DC Sertraline HCl (Zoloft) 50 mg DAILY PO Last administered on 08/06/18 09:26; Start 08/04/18 at 09:00; Stop 08/06/18 at 16:51; Status DC Trazodone HCl (Desyrel) 50 mg PRN QHS PRN PO INSOMNIA, MAY REPEAT X1 Last administered on 08/06/18at 22:37; Start 08/02/18 at 11:30 Fluvoxamine Maleate (Luvox) 25 mg DAILY PO Last administered on 08/07/18 08:48; Start 08/07/18 at 09:00; Stop 08/09/18 at 12:00 Fluvoxamine Maleate (Luvox) 50 mg DAILY PO ; Start 08/10/18 at 09:00 Risperidone (RisperDAL) 0.125 mg DAILY PO Last administered on 08/07/18at 10:48; Start 08/07/18 at 09:00 Risperidone (RisperDAL) 0.25 mg HS PO Last administered on 08/07/18 17:51; Start 08/06/18 at 21:00 Divalproex Sodium (Depakote Sprinkles) 500 mg HS PO ; Start 08/08/18 at 21:00 Active Scripts Active Reported Seroquel (Quetiapine Fumarate) 100 Mg Tablet 100 Mg PO QHS Miralax (Polyethylene Glycol 3350) 17 Gm Powd.pack 17 Gm PO DAILY Protonix (Pantoprazole Sodium) 40 Mg Tablet.dr 40 Mg PO DAILY Nifedipine Er (Nifedipine) 30 Mg Tablet.er 30 Mg PO BID Mirtazapine 15 Mg Tablet 15 Mg PO QHS Metoprolol Tartrate 50 Mg Tablet 50 Mg PO DAILY Melatonin 3 Mg Tablet 3 Mg PO QHS Probiotic (Lactobacillus Combo No.10) 1 Each Capsule 1 Each PO DAILY Vitamin D2 (Ergocalciferol (Vitamin D2)) 50,000 Unit Capsule 50,000 Unit PO WEEKLY MONDAY Depakote Er (Divalproex Sodium) 500 Mg Tab.er.24h 500 Mg PO QHS Vitamin B-12 (Cyanocobalamin (Vitamin B-12)) 1,000 Mcg Tablet 1,000 Mcg PO DAILY 14 Days Give daily for 14 days beginning 08/01/2018 Amlodipine Besylate 5 Mg Tablet 5 Mg PO DAILY Arimidex (Anastrozole) 1 Mg Tablet 1 Mg PO DAILY I have reviewed the current psychotropics carefully including drug interactions. Risk benefit ratio favors no change other than as noted in my dictated progress note. Diagnosis: Problems: (1) Anxiety disorder (2) Dementia, vascular, with delusions (3) Dementia, vascular, with depression (4) Dementia in Alzheimer's disease with delusions (5) Dementia in Alzheimer's disease with depression (6) Impulse control disorder CONNIE CAIN MD Aug 07, 2018 22:43
[2018-08-08] MEDS: traZODone 50 MG TABLET. PO PRN (01:08)
[2018-08-08 05:54] VITALS: BP 136/78
[2018-08-08] MEDS: DIVALPROEX 125 MG CAP.SPRINK PO SCH ×3 (09:20→20:03)
[2018-08-08] MEDS: LACTOBACILLUS RHAMNOSUS GG 1 CAPSULE. PO SCH (09:20)
[2018-08-08] MEDS: METOPROLOL TART IMMED RELEASE 25 MG TABLET PO SCH ×2 (09:21→20:05)
[2018-08-08] MEDS: POLYETHYLENE GLYCOL 3350 17 GM PACKET. PO SCH (09:21)
[2018-08-08] MEDS: CYANOCOBALAMIN (VITAMIN B-12) 1,000 MCG TABLET. PO SCH (09:24)
[2018-08-08] MEDS: risperiDONE 0.25 MG TABLET. PO SCH ×2 (09:24→20:03)
[2018-08-08] MEDS: PANTOPRAZOLE 40 MG TABLET. PO SCH (09:24)
[2018-08-08 16:52] VITALS: BP 116/69
[2018-08-08] MEDS: MELATONIN 3 MG TABLET PO SCH (20:01)
[2018-08-08] MEDS: MIRTAZAPINE 15 MG TABLET PO SCH (20:03)
--- NOTE | 2018-08-08 21:47 | PN ---
DATE: 08/07/2018 PSYCHIATRIC PROGRESS NOTE This late entry 08/07/2018 covers elements not covered in my initial note. SUBJECTIVE: I met with the patient evening of 08/07/2018. The patient slept just 2-3/4 hours previous night. She remains confused. Refused at bedtime medications. During the morning, was wandering on 08/07/2018. She was in the [place], put herself on the floor, was crawling on the floor talking to God punishing her. She remains somewhat obsessive. REVIEW OF SYSTEMS: No CV, , pulmonary, eye, ENT system symptoms on review. Reliability poor. MENTAL STATUS EXAM: Oriented to herself. Insight, judgment, recent and remote memory, attention, concentration, fund of knowledge poor, consistent with her diagnosis mentioned in my initial note. IMPRESSION: Major neurocognitive disorder, Alzheimer, vascular with delusion, depression, behavioral disturbance; anxiety disorder, unspecified; impulse control disorder, unspecified. PLAN: Continue psychotropics from initial note. She seems a little more coherent from time to time. Maintain Depakote, melatonin, Remeron, Seroquel along with Zyprexa p.r.n., trazodone for now. CONNIE CAIN MD DR: SUNNY/oni JOB#: [id number] / [id number]
--- NOTE | 2018-08-08 22:47 | PDOC ---
Exam Note: Ayo Note: Please also refer to the separate dictated note~for this date of service dictated separately.~Patient seen individually. Discussed the patient with Nursing staff reviewed the chart.~Reviewed interim history and current functioning. Reviewed vital signs,~Labs/ Radiology~and current medications noted below. Continue current treatment with the changes noted in the dictated addendum note Assessment: Vital Signs: Vital Signs Date Time Temp Pulse Resp B/P (MAP) Pulse Ox O2 Delivery O2 Flow Rate FiO2 08/08/18 20:05 69 116/69 08/08/18 16:52 98.2 18 95 08/03/18 16:25 Room Air I&O Intake and Output 08/08/18 06:59 Intake Total 840 ml Balance 840 ml Intake Oral 840 ml # Voids 1 Current Medications: Meds: Current Medications Acetaminophen (Tylenol) 650 mg PRN Q6HRS PRN PO PAIN / TEMP Last administered on 08/03/18at 06:10; Start 07/23/18 at 17:15 Multi-Ingredient Ointment (Analgesic [place]) 1 kenneth PRN QID PRN TP MUSCLE PAIN; Start 07/23/18 at 17:15 Al Hydroxide/Mg Hydroxide (Mylanta Plus Xs) 15 ml PRN AFTMEALHC PRN PO DYSPEPSI A; Start 07/23/18 at 17:15 Magnesium Hydroxide (Milk Of Magnesia) 2,400 mg PRN QHS PRN PO CONSTIPATION; Start 07/23/18 at 17:15 Divalproex Sodium (Depakote Er) 500 mg QHS PO Last administered on 08/07/18at 17:47; Start 07/23/18 at 22:00; Stop 08/07/18 at 18:05; Status DC Melatonin 3 mg QHS PO Last administered on 08/08/18at 20:01; Start 07/23/18 at 22:00 Mirtazapine (Remeron) 15 mg QHS PO Last administered on 08/08/18at 20:03; Start 07/23/18 at 22:00 Quetiapine Fumarate (SEROquel) 100 mg QHS PO Last administered on 08/05/18at 20:11; Start 07/23/18 at 22:00; Stop 08/06/18 at 18:27; Status DC Cyanocobalamin (Vitamin B-12) 1,000 mcg DAILY PO Last administered on 08/08/18 09:24; Start 07/24/18 at 09:00 Amlodipine Besylate (Norvasc) 5 mg DAILY PO Last administered on 07/24/18 08:57; Start 07/24/18 at 09:00; Stop 07/24/18 at 15:21; Status DC Anastrozole (Arimidex) 1 mg DAILY PO Last administered on 07/24/18 09:00; Start 07/24/18 at 09:00; Stop 07/24/18 at 22:35; Status DC Vitamin D (Vitamin D3) 50,000 unit WEEKLY PO Last administered on 08/06/18 09:29; Start 07/30/18 at 09:00 Lactobacillus Rhamnosus (Culturelle) 1 cap DAILY PO Last administered on 08/08/18 09:20; Start 07/24/18 at 09:00 Metoprolol Tartrate (Lopressor) 50 mg DAILY PO Last administered on 07/24/18 08:57; Start 07/24/18 at 09:00; Stop 07/24/18 at 15:22; Status DC Nifedipine (Procardia Xl) 30 mg BID PO Last administered on 07/24/18 08:56; Start 07/23/18 at 22:00; Stop 07/24/18 at 15:22; Status DC Pantoprazole Sodium (Protonix) 40 mg DAILY PO Last administered on 08/08/18 09:24; Start 07/24/18 at 09:00 Polyethylene Glycol (miraLAX) 17 gm DAILY PO Last administered on 08/08/18 09:21; Start 07/24/18 at 09:00 Metoprolol Tartrate (Lopressor) 25 mg BID PO Last administered on 08/08/18 20:05; Start 07/24/18 at 21:00 Nifedipine (Procardia Xl) 60 mg BID PO Last administered on 08/08/18 20:03; Start 07/24/18 at 21:00 Quetiapine Fumarate (SEROquel) 25 mg BID92 PO Last administered on 08/06/18 13:14; Start 07/26/18 at 09:00; Stop 08/06/18 at 18:27; Status DC Olanzapine (ZyPREXA ZYDIS) 2.5 mg PRN Q2HR PRN PO agitation/psychosis Last administered on 08/08/18 16:17; Start 07/25/18 at 17:30 Divalproex Sodium (Depakote Sprinkles) 125 mg 0900,1300 PO Last administered on 08/08/18 12:11; Start 07/26/18 at 13:00 Amoxicillin (Amoxil) 250 mg BID PO Last administered on 08/03/18 07:56; Start 07/27/18 at 21:00; Stop 08/03/18 at 20:59; Status DC Sertraline HCl (Zoloft) 25 mg DAILY PO Last administered on 08/03/18 07:57; Start 08/01/18 at 09:00; Stop 08/03/18 at 23:00; Status DC Sertraline HCl (Zoloft) 50 mg DAILY PO Last administered on 08/06/18 09:26; Start 08/04/18 at 09:00; Stop 08/06/18 at 16:51; Status DC Trazodone HCl (Desyrel) 50 mg PRN QHS PRN PO INSOMNIA, MAY REPEAT X1 Last administered on 08/08/18 01:08; Start 08/02/18 at 11:30 Fluvoxamine Maleate (Luvox) 25 mg DAILY PO Last administered on 08/08/18 09:21; Start 08/07/18 at 09:00; Stop 08/09/18 at 12:00 Fluvoxamine Maleate (Luvox) 50 mg DAILY PO ; Start 08/10/18 at 09:00 Risperidone (RisperDAL) 0.125 mg DAILY PO Last administered on 08/08/18 09:24; Start 08/07/18 at 09:00 Risperidone (RisperDAL) 0.25 mg HS PO Last administered on 08/08/18 20:03; Start 08/06/18 at 21:00 Divalproex Sodium (Depakote Sprinkles) 500 mg HS PO Last administered on 08/08/18 20:03; Start 08/08/18 at 21:00 Active Scripts Active Reported Seroquel (Quetiapine Fumarate) 100 Mg Tablet 100 Mg PO QHS Miralax (Polyethylene Glycol 3350) 17 Gm Powd.pack 17 Gm PO DAILY Protonix (Pantoprazole Sodium) 40 Mg Tablet.dr 40 Mg PO DAILY Nifedipine Er (Nifedipine) 30 Mg Tablet.er 30 Mg PO BID Mirtazapine 15 Mg Tablet 15 Mg PO QHS Metoprolol Tartrate 50 Mg Tablet 50 Mg PO DAILY Melatonin 3 Mg Tablet 3 Mg PO QHS Probiotic (Lactobacillus Combo No.10) 1 Each Capsule 1 Each PO DAILY Vitamin D2 (Ergocalciferol (Vitamin D2)) 50,000 Unit Capsule 50,000 Unit PO WEEKLY MONDAY Depakote Er (Divalproex Sodium) 500 Mg Tab.er.24h 500 Mg PO QHS Vitamin B-12 (Cyanocobalamin (Vitamin B-12)) 1,000 Mcg Tablet 1,000 Mcg PO DAILY 14 Days Give daily for 14 days beginning 08/01/2018 Amlodipine Besylate 5 Mg Tablet 5 Mg PO DAILY Arimidex (Anastrozole) 1 Mg Tablet 1 Mg PO DAILY I have reviewed the current psychotropics carefully including drug interactions. Risk benefit ratio favors no change other than as noted in my dictated progress note. Diagnosis: Problems: (1) Anxiety disorder (2) Dementia, vascular, with delusions (3) Dementia, vascular, with depression (4) Dementia in Alzheimer's disease with delusions (5) Dementia in Alzheimer's disease with depression (6) Impulse control disorder CONNIE CAIN MD Aug 08, 2018 22:47
[2018-08-09 06:05] VITALS: BP 138/81
[2018-08-09] MEDS: CYANOCOBALAMIN (VITAMIN B-12) 1,000 MCG TABLET. PO SCH (08:06)
[2018-08-09] MEDS: PANTOPRAZOLE 40 MG TABLET. PO SCH (08:06)
[2018-08-09] MEDS: POLYETHYLENE GLYCOL 3350 17 GM PACKET. PO SCH (08:06)
[2018-08-09] MEDS: LACTOBACILLUS RHAMNOSUS GG 1 CAPSULE. PO SCH (08:06)
[2018-08-09] MEDS: METOPROLOL TART IMMED RELEASE 25 MG TABLET PO SCH ×2 (08:06→20:13)
[2018-08-09] MEDS: DIVALPROEX 125 MG CAP.SPRINK PO SCH ×3 (08:07→20:14)
[2018-08-09] MEDS: risperiDONE 0.25 MG TABLET. PO SCH ×2 (08:07→20:14)
[2018-08-09 16:01] VITALS: BP 130/68
[2018-08-09] MEDS: MIRTAZAPINE 15 MG TABLET PO SCH (20:14)
[2018-08-09] MEDS: MELATONIN 3 MG TABLET PO SCH (20:14)
--- NOTE | 2018-08-09 22:56 | PDOC ---
Exam Note: Ayo Note: Please also refer to the separate dictated note~for this date of service dictated separately.~Patient seen individually. Discussed the patient with Nursing staff reviewed the chart.~Reviewed interim history and current functioning. Reviewed vital signs,~Labs/ Radiology~and current medications noted below. Continue current treatment with the changes noted in the dictated addendum note Assessment: Vital Signs: Vital Signs Date Time Temp Pulse Resp B/P (MAP) Pulse Ox O2 Delivery O2 Flow Rate FiO2 08/09/18 20:15 86 130/68 08/09/18 16:01 97.0 18 98 08/03/18 16:25 Room Air I&O Intake and Output 08/09/18 07:00 Intake Total 960 ml Balance 960 ml Intake Oral 960 ml # Voids 1 Current Medications: Meds: Current Medications Acetaminophen (Tylenol) 650 mg PRN Q6HRS PRN PO PAIN / TEMP Last administered on 08/03/18at 06:10; Start 07/23/18 at 17:15 Multi-Ingredient Ointment (Analgesic [place]) 1 kenneth PRN QID PRN TP MUSCLE PAIN; Start 07/23/18 at 17:15 Al Hydroxide/Mg Hydroxide (Mylanta Plus Xs) 15 ml PRN AFTMEALHC PRN PO DYSPEPSI A; Start 07/23/18 at 17:15 Magnesium Hydroxide (Milk Of Magnesia) 2,400 mg PRN QHS PRN PO CONSTIPATION; Start 07/23/18 at 17:15 Divalproex Sodium (Depakote Er) 500 mg QHS PO Last administered on 08/07/18at 17:47; Start 07/23/18 at 22:00; Stop 08/07/18 at 18:05; Status DC Melatonin 3 mg QHS PO Last administered on 08/09/18at 20:14; Start 07/23/18 at 22:00 Mirtazapine (Remeron) 15 mg QHS PO Last administered on 08/09/18at 20:14; Start 07/23/18 at 22:00 Quetiapine Fumarate (SEROquel) 100 mg QHS PO Last administered on 08/05/18at 20:11; Start 07/23/18 at 22:00; Stop 08/06/18 at 18:27; Status DC Cyanocobalamin (Vitamin B-12) 1,000 mcg DAILY PO Last administered on 08/09/18 08:06; Start 07/24/18 at 09:00 Amlodipine Besylate (Norvasc) 5 mg DAILY PO Last administered on 07/24/18 08:57; Start 07/24/18 at 09:00; Stop 07/24/18 at 15:21; Status DC Anastrozole (Arimidex) 1 mg DAILY PO Last administered on 07/24/18 09:00; Start 07/24/18 at 09:00; Stop 07/24/18 at 22:35; Status DC Vitamin D (Vitamin D3) 50,000 unit WEEKLY PO Last administered on 08/06/18 09:29; Start 07/30/18 at 09:00 Lactobacillus Rhamnosus (Culturelle) 1 cap DAILY PO Last administered on 08/09/18 08:06; Start 07/24/18 at 09:00 Metoprolol Tartrate (Lopressor) 50 mg DAILY PO Last administered on 07/24/18 08:57; Start 07/24/18 at 09:00; Stop 07/24/18 at 15:22; Status DC Nifedipine (Procardia Xl) 30 mg BID PO Last administered on 07/24/18 08:56; Start 07/23/18 at 22:00; Stop 07/24/18 at 15:22; Status DC Pantoprazole Sodium (Protonix) 40 mg DAILY PO Last administered on 08/09/18 08:06; Start 07/24/18 at 09:00 Polyethylene Glycol (miraLAX) 17 gm DAILY PO Last administered on 08/09/18 08:06; Start 07/24/18 at 09:00 Metoprolol Tartrate (Lopressor) 25 mg BID PO Last administered on 08/09/18 20:13; Start 07/24/18 at 21:00 Nifedipine (Procardia Xl) 60 mg BID PO Last administered on 08/09/18 20:15; Start 07/24/18 at 21:00 Quetiapine Fumarate (SEROquel) 25 mg BID92 PO Last administered on 08/06/18 13:14; Start 07/26/18 at 09:00; Stop 08/06/18 at 18:27; Status DC Olanzapine (ZyPREXA ZYDIS) 2.5 mg PRN Q2HR PRN PO agitation/psychosis Last administered on 08/08/18 16:17; Start 07/25/18 at 17:30 Divalproex Sodium (Depakote Sprinkles) 125 mg 0900,1300 PO Last administered on 08/09/18 14:32; Start 07/26/18 at 13:00 Amoxicillin (Amoxil) 250 mg BID PO Last administered on 08/03/18 07:56; Start 07/27/18 at 21:00; Stop 08/03/18 at 20:59; Status DC Sertraline HCl (Zoloft) 25 mg DAILY PO Last administered on 08/03/18 07:57; Start 08/01/18 at 09:00; Stop 08/03/18 at 23:00; Status DC Sertraline HCl (Zoloft) 50 mg DAILY PO Last administered on 08/06/18 09:26; Start 08/04/18 at 09:00; Stop 08/06/18 at 16:51; Status DC Trazodone HCl (Desyrel) 50 mg PRN QHS PRN PO INSOMNIA, MAY REPEAT X1 Last administered on 08/08/18 01:08; Start 08/02/18 at 11:30 Fluvoxamine Maleate (Luvox) 25 mg DAILY PO Last administered on 08/09/18 08:06; Start 08/07/18 at 09:00; Stop 08/09/18 at 12:00; Status DC Fluvoxamine Maleate (Luvox) 50 mg DAILY PO ; Start 08/10/18 at 09:00 Risperidone (RisperDAL) 0.125 mg DAILY PO Last administered on 08/09/18 08:07; Start 08/07/18 at 09:00 Risperidone (RisperDAL) 0.25 mg HS PO Last administered on 08/09/18 20:14; Start 08/06/18 at 21:00 Divalproex Sodium (Depakote Sprinkles) 500 mg HS PO Last administered on 08/09/18 20:14; Start 08/08/18 at 21:00 Active Scripts Active Reported Seroquel (Quetiapine Fumarate) 100 Mg Tablet 100 Mg PO QHS Miralax (Polyethylene Glycol 3350) 17 Gm Powd.pack 17 Gm PO DAILY Protonix (Pantoprazole Sodium) 40 Mg Tablet.dr 40 Mg PO DAILY Nifedipine Er (Nifedipine) 30 Mg Tablet.er 30 Mg PO BID Mirtazapine 15 Mg Tablet 15 Mg PO QHS Metoprolol Tartrate 50 Mg Tablet 50 Mg PO DAILY Melatonin 3 Mg Tablet 3 Mg PO QHS Probiotic (Lactobacillus Combo No.10) 1 Each Capsule 1 Each PO DAILY Vitamin D2 (Ergocalciferol (Vitamin D2)) 50,000 Unit Capsule 50,000 Unit PO WEEKLY MONDAY Depakote Er (Divalproex Sodium) 500 Mg Tab.er.24h 500 Mg PO QHS Vitamin B-12 (Cyanocobalamin (Vitamin B-12)) 1,000 Mcg Tablet 1,000 Mcg PO DAILY 14 Days Give daily for 14 days beginning 08/01/2018 Amlodipine Besylate 5 Mg Tablet 5 Mg PO DAILY Arimidex (Anastrozole) 1 Mg Tablet 1 Mg PO DAILY I have reviewed the current psychotropics carefully including drug interactions. Risk benefit ratio favors no change other than as noted in my dictated progress note. Diagnosis: Problems: (1) Anxiety disorder (2) Dementia, vascular, with delusions (3) Dementia, vascular, with depression (4) Dementia in Alzheimer's disease with delusions (5) Dementia in Alzheimer's disease with depression (6) Impulse control disorder CONNIE CAIN MD Aug 09, 2018 22:56
[2018-08-10 05:52] VITALS: BP 129/74
[2018-08-10] MEDS: PANTOPRAZOLE 40 MG TABLET. PO SCH (08:51)
[2018-08-10] MEDS: CYANOCOBALAMIN (VITAMIN B-12) 1,000 MCG TABLET. PO SCH (08:51)
[2018-08-10] MEDS: risperiDONE 0.25 MG TABLET. PO SCH ×2 (08:51→20:54)
[2018-08-10] MEDS: METOPROLOL TART IMMED RELEASE 25 MG TABLET PO SCH ×2 (08:52→20:55)
[2018-08-10] MEDS: DIVALPROEX 125 MG CAP.SPRINK PO SCH ×3 (08:52→20:54)
[2018-08-10] MEDS: LACTOBACILLUS RHAMNOSUS GG 1 CAPSULE. PO SCH (08:52)
[2018-08-10] MEDS: POLYETHYLENE GLYCOL 3350 17 GM PACKET. PO SCH (08:52)
[2018-08-10 16:20] VITALS: BP 116/74
[2018-08-10] MEDS ORDERED: traZODone 100 MG TABLET. PO SCH (18:30)
[2018-08-10] MEDS ORDERED: traZODone 100 MG TABLET. PO PRN ×3 (18:30→21:00)
[2018-08-10] MEDS: MELATONIN 3 MG TABLET PO SCH (20:54)
[2018-08-10] MEDS: MIRTAZAPINE 15 MG TABLET PO SCH (20:54)
[2018-08-10] MEDS: traZODone 100 MG TABLET. PO SCH (20:58)
--- NOTE | 2018-08-10 22:35 | PDOC ---
Exam Note: Ayo Note: Please also refer to the separate dictated note~for this date of service dictated separately.~Patient seen individually. Discussed the patient with Nursing staff reviewed the chart.~Reviewed interim history and current functioning. Reviewed vital signs,~Labs/ Radiology~and current medications noted below. Continue current treatment with the changes noted in the dictated addendum note Assessment: Vital Signs: Vital Signs Date Time Temp Pulse Resp B/P (MAP) Pulse Ox O2 Delivery O2 Flow Rate FiO2 08/10/18 20:55 59 116/74 08/10/18 16:20 97.2 18 97 Room Air I&O Intake and Output 08/10/18 07:00 Intake Total 600 ml Balance 600 ml Intake Oral 600 ml # Bowel Movements 1 Current Medications: Meds: Current Medications Acetaminophen (Tylenol) 650 mg PRN Q6HRS PRN PO PAIN / TEMP Last administered on 08/03/18at 06:10; Start 07/23/18 at 17:15 Multi-Ingredient Ointment (Analgesic [place]) 1 kenneth PRN QID PRN TP MUSCLE PAIN; Start 07/23/18 at 17:15 Al Hydroxide/Mg Hydroxide (Mylanta Plus Xs) 15 ml PRN AFTMEALHC PRN PO DYSPEPSIA; Start 07/23/18 at 17:15 Magnesium Hydroxide (Milk Of Magnesia) 2,400 mg PRN QHS PRN PO CONSTIPATION; Start 07/23/18 at 17:15 Divalproex Sodium (Depakote Er) 500 mg QHS PO Last administered on 08/07/18at 17:47; Start 07/23/18 at 22:00; Stop 08/07/18 at 18:05; Status DC Melatonin 3 mg QHS PO Last administered on 08/10/18at 20:54; Start 07/23/18 at 22:00 Mirtazapine (Remeron) 15 mg QHS PO Last administered on 08/10/18 20:54; Start 07/23/18 at 22:00 Quetiapine Fumarate (SEROquel) 100 mg QHS PO Last administered on 08/05/18 20:11; Start 07/23/18 at 22:00; Stop 08/06/18 at 18:27; Status DC Cyanocobalamin (Vitamin B-12) 1,000 mcg DAILY PO Last administered on 08/10/18 08:51; Start 07/24/18 at 09:00 Amlodipine Besylate (Norvasc) 5 mg DAILY PO Last administered on 07/24/18 08:57; Start 07/24/18 at 09:00; Stop 07/24/18 at 15:21; Status DC Anastrozole (Arimidex) 1 mg DAILY PO Last administered on 07/24/18 09:00; Start 07/24/18 at 09:00; Stop 07/24/18 at 22:35; Status DC Vitamin D (Vitamin D3) 50,000 unit WEEKLY PO Last administered on 08/06/18 09:29; Start 07/30/18 at 09:00 Lactobacillus Rhamnosus (Culturelle) 1 cap DAILY PO Last administered on 08/10/18 08:52; Start 07/24/18 at 09:00 Metoprolol Tartrate (Lopressor) 50 mg DAILY PO Last administered on 07/24/18 08:57; Start 07/24/18 at 09:00; Stop 07/24/18 at 15:22; Status DC Nifedipine (Procardia Xl) 30 mg BID PO Last administered on 07/24/18 08:56; Start 07/23/18 at 22:00; Stop 07/24/18 at 15:22; Status DC Pantoprazole Sodium (Protonix) 40 mg DAILY PO Last administered on 08/10/18 08:51; Start 07/24/18 at 09:00 Polyethylene Glycol (miraLAX) 17 gm DAILY PO Last administered on 08/10/18 08:5 2; Start 07/24/18 at 09:00 Metoprolol Tartrate (Lopressor) 25 mg BID PO Last administered on 08/10/18 20:55; Start 07/24/18 at 21:00 Nifedipine (Procardia Xl) 60 mg BID PO Last administered on 08/10/18 20:55; Start 07/24/18 at 21:00 Quetiapine Fumarate (SEROquel) 25 mg BID92 PO Last administered on 08/06/18 13:14; Start 07/26/18 at 09:00; Stop 08/06/18 at 18:27; Status DC Olanzapine (ZyPREXA ZYDIS) 2.5 mg PRN Q2HR PRN PO agitation/psychosis Last administered on 08/08/18 16:17; Start 07/25/18 at 17:30 Divalproex Sodium (Depakote Sprinkles) 125 mg 0900,1300 PO Last administered on 08/10/18 12:32; Start 07/26/18 at 13:00 Amoxicillin (Amoxil) 250 mg BID PO Last administered on 08/03/18 07:56; Start 07/27/18 at 21:00; Stop 08/03/18 at 20:59; Status DC Sertraline HCl (Zoloft) 25 mg DAILY PO Last administered on 08/03/18 07:57; Start 08/01/18 at 09:00; Stop 08/03/18 at 23:00; Status DC Sertraline HCl (Zoloft) 50 mg DAILY PO Last administered on 08/06/18 09:26; Start 08/04/18 at 09:00; Stop 08/06/18 at 16:51; Status DC Trazodone HCl (Desyrel) 50 mg PRN QHS PRN PO INSOMNIA, MAY REPEAT X1 Last administered on 08/08/18 01:08; Start 08/02/18 at 11:30; Stop 08/10/18 at 18:10; Status DC Fluvoxamine Maleate (Luvox) 25 mg DAILY PO Last administered on 08/09/18 08:06; Start 08/07/18 at 09:00; Stop 08/09/18 at 12:00; Status DC Fluvoxamine Maleate (Luvox) 50 mg DAILY PO Last administered on 08/10/18 08:56; Start 08/10/18 at 09:00 Risperidone (RisperDAL) 0.125 mg DAILY PO Last administered on 08/10/18 08:51; Start 08/07/18 at 09:00 Risperidone (RisperDAL) 0.25 mg HS PO Last administered on 08/10/18 20:54; Start 08/06/18 at 21:00 Divalproex Sodium (Depakote Sprinkles) 500 mg HS PO Last administered on 08/10/18 20:54; Start 08/08/18 at 21:00 Trazodone HCl (Desyrel) 100 mg PRN QHS PRN PO MAY REPEAT X 1; Start 08/10/18 at 18:30; Stop 08/10/18 at 18:33; Status DC Trazodone HCl (Desyrel) 100 mg QHS PO ; Start 08/10/18 at 18:30; Stop 08/10/18 at 18:43; Status DC Trazodone HCl (Desyrel) 100 mg QHS PRN PO INSOMNIA; Start 08/10/18 at 18:30; Stop 08/10/18 at 18:43; Status DC Hydroxyzine HCl (Atarax) 25 mg PRN Q4HRS PRN PO ANXIETY / AGITATION; Start 08/10/18 at 18:30 Trazodone HCl (Desyrel) 100 mg QHS PO Last administered on 08/10/18at 20:58; Start 08/10/18 at 21:00 Trazodone HCl (Desyrel) 100 mg PRN QHS PRN PO INSOMNIA; Start 08/10/18 at 21:00 Active Scripts Active Reported Seroquel (Quetiapine Fumarate) 100 Mg Tablet 100 Mg PO QHS Miralax (Polyethylene Glycol 3350) 17 Gm Powd.pack 17 Gm PO DAILY Protonix (Pantoprazole Sodium) 40 Mg Tablet.dr 40 Mg PO DAILY Nifedipine Er (Nifedipine) 30 Mg Tablet.er 30 Mg PO BID Mirtazapine 15 Mg Tablet 15 Mg PO QHS Metoprolol Tartrate 50 Mg Tablet 50 Mg PO DAILY Melatonin 3 Mg Tablet 3 Mg PO QHS Probiotic (Lactobacillus Combo No.10) 1 Each Capsule 1 Each PO DAILY Vitamin D2 (Ergocalciferol (Vitamin D2)) 50,000 Unit Capsule 50,000 Unit PO WEEKLY MONDAY Depakote Er (Divalproex Sodium) 500 Mg Tab.er.24h 500 Mg PO QHS Vitamin B-12 (Cyanocobalamin (Vitamin B-12)) 1,000 Mcg Tablet 1,000 Mcg PO DAILY 14 Days Give daily for 14 days beginning 08/01/2018 Amlodipine Besylate 5 Mg Tablet 5 Mg PO DAILY Arimidex (Anastrozole) 1 Mg Tablet 1 Mg PO DAILY I have reviewed the current psychotropics carefully including drug interactions. Risk benefit ratio favors no change other than as noted in my dictated progress note. Diagnosis: Problems: (1) Anxiety disorder (2) Dementia, vascular, with delusions (3) Dementia, vascular, with depression (4) Dementia in Alzheimer's disease with delusions (5) Dementia in Alzheimer's disease with depression (6) Impulse control disorder CONNIE CAIN MD Aug 10, 2018 22:35
--- NOTE | 2018-08-11 01:49 | PN ---
DATE: 08/08/2018 This late entry for 08/08/2018 covers elements not covered in my initial note. SUBJECTIVE: I met with the patient in the evening. The patient slept 5-1/2 hours previous night. She gets intermittently agitated, received Zyprexa Zydis at 02:00 p.m. then 04:30 p.m. She was delusional, fixated on some boys and looking for a man, appears quite disorganized as I spent some time with her individually. REVIEW OF SYSTEMS: No CV, , pulmonary, eye, ENT system symptoms on review. Reliability poor. MENTAL STATUS EXAM: Oriented to herself. Insight, judgment, recent and remote memory, attention, concentration, fund of knowledge poor, consistent with her diagnosis mentioned in my initial note. PLAN: No change from initial note. MAN Malissa CAIN MD DR: SUNNY/oni JOB#: [id number] / [id number]
[2018-08-11 06:50] VITALS: BP 145/81
[2018-08-11 08:32] LABS: BASO % 1 % (0-3); EOS # 0.1 x10^3/uL (0.0-0.7); EOS % 3 % (0-3); HEMATOCRIT 35.7 % (36.0-47.0); LYMPH # 0.8 x10^3/uL (1.0-4.8); LYMPH % 21 % (24-48); MEAN CORPUSCULAR HEMOGLOBIN 34 pg (25-35); MEAN CORPUSCULAR HGB CONC 34 g/dL (31-37); MEAN CORPUSCULAR VOLUME 101 fL (79-100); MONO # 0.5 x10^3/uL (0.0-1.1); MONO % 14 % (0-9); NEUT # 2.3 x10^3uL (1.8-7.7); NEUT % 61 % (31-73); PLATELET COUNT 162 x10^3/uL (140-400); RED BLOOD COUNT 3.55 x10^6/uL (3.50-5.40); RED CELL DISTRIBUTION WIDTH 14.3 % (11.5-14.5); WHITE BLOOD COUNT 3.8 x10^3/uL (4.0-11.0)
[2018-08-11 08:40] LABS: ALBUMIN 3.1 g/dL (3.4-5.0); ALBUMIN/GLOBULIN RATIO 0.8 (1.0-1.7); CALCIUM 9.8 mg/dL (8.5-10.1); CREATININE 1.3 mg/dL (0.6-1.0); GFR 39.2; POTASSIUM 4.2 mmol/L (3.5-5.1); TOTAL BILIRUBIN 0.3 mg/dL (0.2-1.0)
[2018-08-11] MEDS: POLYETHYLENE GLYCOL 3350 17 GM PACKET. PO SCH (09:00)
[2018-08-11] MEDS: risperiDONE 0.25 MG TABLET. PO SCH ×2 (09:05→20:39)
[2018-08-11] MEDS: CYANOCOBALAMIN (VITAMIN B-12) 1,000 MCG TABLET. PO SCH (09:05)
[2018-08-11] MEDS: LACTOBACILLUS RHAMNOSUS GG 1 CAPSULE. PO SCH (09:05)
[2018-08-11] MEDS: METOPROLOL TART IMMED RELEASE 25 MG TABLET PO SCH ×2 (09:06→20:40)
[2018-08-11] MEDS: DIVALPROEX 125 MG CAP.SPRINK PO SCH ×3 (09:06→20:39)
[2018-08-11] MEDS: PANTOPRAZOLE 40 MG TABLET. PO SCH (09:06)
--- NOTE | 2018-08-11 16:14 | PN ---
DATE: 08/09/2018 PSYCHIATRIC PROGRESS NOTE This late entry of 08/09/2018 covers elements not covered in my initial note. SUBJECTIVE: I met with the patient on evening of 08/09/2018. The patient was also staffed at a treatment team meeting with the entire team and the patient's daughter, Maria, attended the conference. Reviewed the patient's history, diagnosis, progress, labs, prognosis and discharge plans. The patient is sleeping 5 hours average at night. Appetite 75%, labile at times, very delusional, psychotic. 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 She has done a little better of her activity therapy, attended 4 groups. REVIEW OF SYSTEMS: No CV, , pulmonary, eye, ENT system symptoms on review. Reliability poor. MENTAL STATUS EXAM: Oriented to herself. Insight, judgment, recent and remote memory, attention, concentration, fund of knowledge poor, consistent with her diagnoses mentioned in my initial note. PLAN: No change from initial note. MAN Malissa CAIN MD DR: SUNNY/oni JOB#: [id number] / [id number]
[2018-08-11] MEDS: hydrOXYzine HCL 25 MG TABLET PO PRN (16:43)
[2018-08-11 16:45] VITALS: BP 102/65
--- NOTE | 2018-08-11 17:01 | PN ---
DATE: 08/10/2018 PSYCHIATRIC PROGRESS NOTE This late entry of 08/10/2018 covers elements not covered in my initial note. SUBJECTIVE: I met with the patient in the evening in the [place] where she has been isolated on account of extreme agitation, mood lability, confusion, garbled speech, banging on doors. She had a loose stool, possible rectal prolapse per Dr. Crouch. Slept 3-3/4 hours. REVIEW OF SYSTEMS: No CV, , pulmonary, eye, ENT system symptoms on review. Reliability poor. MENTAL STATUS EXAM: Oriented to herself. Insight, judgment, recent and remote memory, attention, concentration, fund of knowledge poor, consistent with her diagnosis. LABORATORY DATA: Reviewed. IMPRESSION: Major neurocognitive disorder, Alzheimer, vascular with delusion; depression; behavioral disturbance; anxiety disorder, unspecified; impulse control disorder, unspecified. PLAN: Increase the trazodone from 50 at bedtime p.r.n. to 100 mg p.o. at bedtime p.r.n., july repeat x 1. Continue rest psychotropics unchanged. MAN Malissa CAIN MD DR: SUNNY/oni JOB#: [id number] / [id number]
[2018-08-11] MEDS: traZODone 100 MG TABLET. PO SCH (20:39)
[2018-08-11] MEDS: MIRTAZAPINE 15 MG TABLET PO SCH (20:39)
[2018-08-11] MEDS: MELATONIN 3 MG TABLET PO SCH (20:40)
--- NOTE | 2018-08-11 20:50 | PDOC ---
Exam Note: Ayo Note: Please also refer to the separate dictated note~for this date of service dictated separately.~Patient seen individually. Discussed the patient with Nursing staff reviewed the chart.~Reviewed interim history and current functioning. Reviewed vital signs,~Labs/ Radiology~and current medications noted below. Continue current treatment with the changes noted in the dictated addendum note Assessment: Vital Signs: Vital Signs Date Time Temp Pulse Resp B/P (MAP) Pulse Ox O2 Delivery O2 Flow Rate FiO2 08/11/18 20:40 76 102/65 08/11/18 16:45 97.6 18 96 Room Air I&O Intake and Output 08/11/18 07:00 Intake Total 600 ml Balance 600 ml Intake Oral 600 ml # Bowel Movements 2 Labs: Laboratory Tests Test 08/11/18 08:14 White Blood Count 3.8 x10^3/uL (4.0-11.0) L Red Blood Count 3.55 x10^6/uL (3.50-5.40) Hemoglobin 12.0 g/dL (12.0-15.5) Hematocrit 35.7 % (36.0-47.0) L Mean Corpuscular Volume 101 fL (79-100) H Mean Corpuscular Hemoglobin 34 pg (25-35) Mean Corpuscular Hemoglobin Concent 34 g/dL (31-37) Red Cell Distribution Width 14.3 % (11.5-14.5) Platelet Count 162 x10^3/uL (140-400) Neutrophils (%) (Auto) 61 % (31-73) Lymphocytes (%) (Auto) 21 % (24-48) L Monocytes (%) (Auto) 14 % (0-9) H Eosinophils (%) (Auto) 3 % (0-3) Basophils (%) (Auto) 1 % (0-3) Neutrophils # (Auto) 2.3 x10^3uL (1.8-7.7) Lymphocytes # (Auto) 0.8 x10^3/uL (1.0-4.8) L Monocytes # (Auto) 0.5 x10^3/uL (0.0-1.1) Eosinophils # (Auto) 0.1 x10^3/uL (0.0-0.7) Basophils # (Auto) 0.0 x10^3/uL (0.0-0.2) Sodium Level 144 mmol/L (136-145) Potassium Level 4.2 mmol/L (3.5-5.1) Chloride Level 107 mmol/L (98-107) Carbon Dioxide Level 32 mmol/L (21-32) Anion Gap 5 (6-14) L Blood Urea Nitrogen 32 mg/dL (7-20) H Creatinine 1.3 mg/dL (0.6-1.0) H Estimated GFR (Cockcroft-Gault) 39.2 BUN/Creatinine Ratio 25 (6-20) H Glucose Level 92 mg/dL (70-99) Calcium Level 9.8 mg/dL (8.5-10.1) Total Bilirubin 0.3 mg/dL (0.2-1.0) Aspartate Amino Transferase (AST) 22 U/L (15-37) Alanine Aminotransferase (ALT) 18 U/L (14-59) Alkaline Phosphatase 56 U/L (46-116) Total Protein 7.0 g/dL (6.4-8.2) Albumin 3.1 g/dL (3.4-5.0) L Albumin/Globulin Ratio 0.8 (1.0-1.7) L Current Medications: Meds: Current Medications Acetaminophen (Tylenol) 650 mg PRN Q6HRS PRN PO PAIN / TEMP Last administered on 08/03/18at 06:10; Start 07/23/18 at 17:15 Multi-Ingredient Ointment (Analgesic [place]) 1 kenneth PRN QID PRN TP MUSCLE PAIN; Start 07/23/18 at 17:15 Al Hydroxide/Mg Hydroxide (Mylanta Plus Xs) 15 ml PRN AFTMEALHC PRN PO DYSPEPSIA; Start 07/23/18 at 17:15 Magnesium Hydroxide (Milk Of Magnesia) 2,400 mg PRN QHS PRN PO CONSTIPATION; Start 07/23/18 at 17:15 Divalproex Sodium (Depakote Er) 500 mg QHS PO Last administered on 08/07/18at 17:47; Start 07/23/18 at 22:00; Stop 08/07/18 at 18:05; Status DC Melatonin 3 mg QHS PO Last administered on 08/11/18at 20:40; Start 07/23/18 at 22:00 Mirtazapine (Remeron) 15 mg QHS PO Last administered on 08/11/18 20:39; Start 07/23/18 at 22:00 Quetiapine Fumarate (SEROquel) 100 mg QHS PO Last administered on 08/05/18 20:11; Start 07/23/18 at 22:00; Stop 08/06/18 at 18:27; Status DC Cyanocobalamin (Vitamin B-12) 1,000 mcg DAILY PO Last administered on 08/11/18 09:05; Start 07/24/18 at 09:00 Amlodipine Besylate (Norvasc) 5 mg DAILY PO Last administered on 07/24/18 08:57; Start 07/24/18 at 09:00; Stop 07/24/18 at 15:21; Status DC Anastrozole (Arimidex) 1 mg DAILY PO Last administered on 07/24/18 09:00; Start 07/24/18 at 09:00; Stop 07/24/18 at 22:35; Status DC Vitamin D (Vitamin D3) 50,000 unit WEEKLY PO Last administered on 08/06/18 09:29; Start 07/30/18 at 09:00 Lactobacillus Rhamnosus (Culturelle) 1 cap DAILY PO Last administered on 08/11/18 09:05; Start 07/24/18 at 09:00 Metoprolol Tartrate (Lopressor) 50 mg DAILY PO Last administered on 07/24/18 08:57; Start 07/24/18 at 09:00; Stop 07/24/18 at 15:22; Status DC Nifedipine (Procardia Xl) 30 mg BID PO Last administered on 07/24/18 08:56; Start 07/23/18 at 22:00; Stop 07/24/18 at 15:22; Status DC Pantoprazole Sodium (Protonix) 40 mg DAILY PO Last administered on 08/11/18 09:06; Start 07/24/18 at 09:00 Polyethylene Glycol (miraLAX) 17 gm DAILY PO Last administered on 08/10/18 08:52; Start 07/24/18 at 09:00 Metoprolol Tartrate (Lopressor) 25 mg BID PO Last administered on 08/11/18 20:40; Start 07/24/18 at 21:00 Nifedipine (Procardia Xl) 60 mg BID PO Last administered on 08/11/18 20:38; Start 07/24/18 at 21:00 Quetiapine Fumarate (SEROquel) 25 mg BID92 PO Last administered on 08/06/18 13:14; Start 07/26/18 at 09:00; Stop 08/06/18 at 18:27; Status DC Olanzapine (ZyPREXA ZYDIS) 2.5 mg PRN Q2HR PRN PO agitation/psychosis Last administered on 08/08/18 16:17; Start 07/25/18 at 17:30 Divalproex Sodium (Depakote Sprinkles) 125 mg 0900,1300 PO Last administered on 08/11/18 12:52; Start 07/26/18 at 13:00 Amoxicillin (Amoxil) 250 mg BID PO Last administered on 08/03/18 07:56; Start 07/27/18 at 21:00; Stop 08/03/18 at 20:59; Status DC Sertraline HCl (Zoloft) 25 mg DAILY PO Last administered on 08/03/18 07:57; Start 08/01/18 at 09:00; Stop 08/03/18 at 23:00; Status DC Sertraline HCl (Zoloft) 50 mg DAILY PO Last administered on 08/06/18 09:26; Start 08/04/18 at 09:00; Stop 08/06/18 at 16:51; Status DC Trazodone HCl (Desyrel) 50 mg PRN QHS PRN PO INSOMNIA, MAY REPEAT X1 Last administered on 08/08/18 01:08; Start 08/02/18 at 11:30; Stop 08/10/18 at 18:10; Status DC Fluvoxamine Maleate (Luvox) 25 mg DAILY PO Last administered on 08/09/18 08:06; Start 08/07/18 at 09:00; Stop 08/09/18 at 12:00; Status DC Fluvoxamine Maleate (Luvox) 50 mg DAILY PO Last administered on 08/11/18 09:05; Start 08/10/18 at 09:00 Risperidone (RisperDAL) 0.125 mg DAILY PO Last administered on 08/11/18 09:05; Start 08/07/18 at 09:00 Risperidone (RisperDAL) 0.25 mg HS PO Last administered on 08/11/18 20:39; Start 08/06/18 at 21:00 Divalproex Sodium (Depakote Sprinkles) 500 mg HS PO Last administered on 08/11/18 20:39; Start 08/08/18 at 21:00 Trazodone HCl (Desyrel) 100 mg PRN QHS PRN PO MAY REPEAT X 1; Start 08/10/18 at 18:30; Stop 08/10/18 at 18:33; Status DC Trazodone HCl (Desyrel) 100 mg QHS PO ; Start 08/10/18 at 18:30; Stop 08/10/18 at 18:43; Status DC Trazodone HCl (Desyrel) 100 mg QHS PRN PO INSOMNIA; Start 08/10/18 at 18:30; Stop 08/10/18 at 18:43; Status DC Hydroxyzine HCl (Atarax) 25 mg PRN Q4HRS PRN PO ANXIETY / AGITATION Last administered on 08/11/18at 16:43; Start 08/10/18 at 18:30 Trazodone HCl (Desyrel) 100 mg QHS PO Last administered on 08/11/18 20:39; Start 08/10/18 at 21:00 Trazodone HCl (Desyrel) 100 mg PRN QHS PRN PO INSOMNIA; Start 08/10/18 at 21:00 Active Scripts Active Reported Seroquel (Quetiapine Fumarate) 100 Mg Tablet 100 Mg PO QHS Miralax (Polyethylene Glycol 3350) 17 Gm Powd.pack 17 Gm PO DAILY Protonix (Pantoprazole Sodium) 40 Mg Tablet.dr 40 Mg PO DAILY Nifedipine Er (Nifedipine) 30 Mg Tablet.er 30 Mg PO BID Mirtazapine 15 Mg Tablet 15 Mg PO QHS Metoprolol Tartrate 50 Mg Tablet 50 Mg PO DAILY Melatonin 3 Mg Tablet 3 Mg PO QHS Probiotic (Lactobacillus Combo No.10) 1 Each Capsule 1 Each PO DAILY Vitamin D2 (Ergocalciferol (Vitamin D2)) 50,000 Unit Capsule 50,000 Unit PO WEEKLY MONDAY Depakote Er (Divalproex Sodium) 500 Mg Tab.er.24h 500 Mg PO QHS Vitamin B-12 (Cyanocobalamin (Vitamin B-12)) 1,000 Mcg Tablet 1,000 Mcg PO DAILY 14 Days Give daily for 14 days beginning 08/01/2018 Amlodipine Besylate 5 Mg Tablet 5 Mg PO DAILY Arimidex (Anastrozole) 1 Mg Tablet 1 Mg PO DAILY I have reviewed the current psychotropics carefully including drug interactions. Risk benefit ratio favors no change other than as noted in my dictated progress note. Diagnosis: Problems: (1) Anxiety disorder (2) Dementia, vascular, with delusions (3) Dementia, vascular, with depression (4) Dementia in Alzheimer's disease with delusions (5) Dementia in Alzheimer's disease with depression (6) Impulse control disorder CONNIE CAIN MD Aug 11, 2018 20:50
[2018-08-12 06:18] VITALS: BP 133/77
[2018-08-12] MEDS: LACTOBACILLUS RHAMNOSUS GG 1 CAPSULE. PO SCH (10:00)
[2018-08-12] MEDS: DIVALPROEX 125 MG CAP.SPRINK PO SCH ×3 (10:00→20:21)
[2018-08-12] MEDS: METOPROLOL TART IMMED RELEASE 25 MG TABLET PO SCH ×2 (10:02→20:22)
[2018-08-12] MEDS: POLYETHYLENE GLYCOL 3350 17 GM PACKET. PO SCH (10:02)
[2018-08-12] MEDS: risperiDONE 0.25 MG TABLET. PO SCH ×3 (10:04→20:22)
[2018-08-12] MEDS: PANTOPRAZOLE 40 MG TABLET. PO SCH (10:04)
[2018-08-12] MEDS: CYANOCOBALAMIN (VITAMIN B-12) 1,000 MCG TABLET. PO SCH (10:05)
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
[2018-08-12 15:59] VITALS: BP 112/71
[2018-08-12] MEDS: MELATONIN 3 MG TABLET PO SCH (20:20)
[2018-08-12] MEDS: MIRTAZAPINE 15 MG TABLET PO SCH (20:21)
[2018-08-12] MEDS: traZODone 100 MG TABLET. PO SCH (20:22)
--- NOTE | 2018-08-12 22:52 | PDOC ---
Exam Note: Ayo Note: Please also refer to the separate dictated note~for this date of service dictated separately.~Patient seen individually. Discussed the patient with Nursing staff reviewed the chart.~Reviewed interim history and current functioning. Reviewed vital signs,~Labs/ Radiology~and current medications noted below. Continue current treatment with the changes noted in the dictated addendum note Assessment: Vital Signs: Vital Signs Date Time Temp Pulse Resp B/P (MAP) Pulse Ox O2 Delivery O2 Flow Rate FiO2 08/12/18 20:22 63 112/71 08/12/18 15:59 97.4 18 93 08/11/18 16:45 Room Air I&O Intake and Output 08/12/18 06:59 Intake Total 840 ml Balance 840 ml Intake Oral 840 ml Current Medications: Meds: Current Medications Acetaminophen (Tylenol) 650 mg PRN Q6HRS PRN PO PAIN / TEMP Last administered on 08/03/18at 06:10; Start 07/23/18 at 17:15 Multi-Ingredient Ointment (Analgesic [place]) 1 kenneth PRN QID PRN TP MUSCLE PAIN; Start 07/23/18 at 17:15 Al Hydroxide/Mg Hydroxide (Mylanta Plus Xs) 15 ml PRN AFTMEALHC PRN PO DYSPEPSIA; Start 07/23/18 at 17:15 Magnesium Hydroxide (Milk Of Magnesia) 2,400 mg PRN QHS PRN PO CONSTIPATION; Start 07/23/18 at 17:15 Divalproex Sodium (Depakote Er) 500 mg QHS PO Last administered on 08/07/18at 17:47; Start 07/23/18 at 22:00; Stop 08/07/18 at 18:05; Status DC Melatonin 3 mg QHS PO Last administered on 08/12/18at 20:20; Start 07/23/18 at 22:00 Mirtazapine (Remeron) 15 mg QHS PO Last administered on 08/12/18 20:21; Start 07/23/18 at 22:00 Quetiapine Fumarate (SEROquel) 100 mg QHS PO Last administered on 08/05/18 20:11; Start 07/23/18 at 22:00; Stop 08/06/18 at 18:27; Status DC Cyanocobalamin (Vitamin B-12) 1,000 mcg DAILY PO Last administered on 08/12/18 10:05; Start 07/24/18 at 09:00 Amlodipine Besylate (Norvasc) 5 mg DAILY PO Last administered on 07/24/18 08:57; Start 07/24/18 at 09:00; Stop 07/24/18 at 15:21; Status DC Anastrozole (Arimidex) 1 mg DAILY PO Last administered on 07/24/18 09:00; Start 07/24/18 at 09:00; Stop 07/24/18 at 22:35; Status DC Vitamin D (Vitamin D3) 50,000 unit WEEKLY PO Last administered on 08/06/18 09:29; Start 07/30/18 at 09:00 Lactobacillus Rhamnosus (Culturelle) 1 cap DAILY PO Last administered on 08/12/18 10:00; Start 07/24/18 at 09:00 Metoprolol Tartrate (Lopressor) 50 mg DAILY PO Last administered on 07/24/18 08:57; Start 07/24/18 at 09:00; Stop 07/24/18 at 15:22; Status DC Nifedipine (Procardia Xl) 30 mg BID PO Last administered on 07/24/18 08:56; Start 07/23/18 at 22:00; Stop 07/24/18 at 15:22; Status DC Pantoprazole Sodium (Protonix) 40 mg DAILY PO Last administered on 08/12/18 10:04; Start 07/24/18 at 09:00 Polyethylene Glycol (miraLAX) 17 gm DAILY PO Last administered on 08/12/18 10: 02; Start 07/24/18 at 09:00 Metoprolol Tartrate (Lopressor) 25 mg BID PO Last administered on 08/12/18 10:02; Start 07/24/18 at 21:00 Nifedipine (Procardia Xl) 60 mg BID PO Last administered on 08/12/18 10:04; Start 07/24/18 at 21:00 Quetiapine Fumarate (SEROquel) 25 mg BID92 PO Last administered on 08/06/18 13:14; Start 07/26/18 at 09:00; Stop 08/06/18 at 18:27; Status DC Olanzapine (ZyPREXA ZYDIS) 2.5 mg PRN Q2HR PRN PO agitation/psychosis Last administered on 08/12/18 14:48; Start 07/25/18 at 17:30 Divalproex Sodium (Depakote Sprinkles) 125 mg 0900,1300 PO Last administered on 08/12/18 12:13; Start 07/26/18 at 13:00 Amoxicillin (Amoxil) 250 mg BID PO Last administered on 08/03/18 07:56; Start 07/27/18 at 21:00; Stop 08/03/18 at 20:59; Status DC Sertraline HCl (Zoloft) 25 mg DAILY PO Last administered on 08/03/18 07:57; Start 08/01/18 at 09:00; Stop 08/03/18 at 23:00; Status DC Sertraline HCl (Zoloft) 50 mg DAILY PO Last administered on 08/06/18 09:26; Start 08/04/18 at 09:00; Stop 08/06/18 at 16:51; Status DC Trazodone HCl (Desyrel) 50 mg PRN QHS PRN PO INSOMNIA, MAY REPEAT X1 Last administered on 08/08/18 01:08; Start 08/02/18 at 11:30; Stop 08/10/18 at 18:10; Status DC Fluvoxamine Maleate (Luvox) 25 mg DAILY PO Last administered on 08/09/18 08:06; Start 08/07/18 at 09:00; Stop 08/09/18 at 12:00; Status DC Fluvoxamine Maleate (Luvox) 50 mg DAILY PO Last administered on 08/12/18at 10:02; Start 08/10/18 at 09:00 Risperidone (RisperDAL) 0.125 mg DAILY PO Last administered on 08/11/18 09:05; Start 08/07/18 at 09:00; Stop 08/12/18 at 00:59; Status DC Risperidone (RisperDAL) 0.25 mg HS PO Last administered on 08/12/18 20:22; S tart 08/06/18 at 21:00 Divalproex Sodium (Depakote Sprinkles) 500 mg HS PO Last administered on 08/12/18 20:21; Start 08/08/18 at 21:00 Trazodone HCl (Desyrel) 100 mg PRN QHS PRN PO MAY REPEAT X 1; Start 08/10/18 at 18:30; Stop 08/10/18 at 18:33; Status DC Trazodone HCl (Desyrel) 100 mg QHS PO ; Start 08/10/18 at 18:30; Stop 08/10/18 at 18:43; Status DC Trazodone HCl (Desyrel) 100 mg QHS PRN PO INSOMNIA; Start 08/10/18 at 18:30; Stop 08/10/18 at 18:43; Status DC Hydroxyzine HCl (Atarax) 25 mg PRN Q4HRS PRN PO ANXIETY / AGITATION Last administered on 08/11/18at 16:43; Start 08/10/18 at 18:30 Trazodone HCl (Desyrel) 100 mg QHS PO Last administered on 08/12/18at 20:22; Start 08/10/18 at 21:00 Trazodone HCl (Desyrel) 100 mg PRN QHS PRN PO INSOMNIA; Start 08/10/18 at 21:00 Risperidone (RisperDAL) 0.25 mg DAILY PO Last administered on 08/12/18at 10:04; Start 08/12/18 at 09:00 Risperidone (RisperDAL) 0.125 mg DAILYBFRLUN PO Last administered on 08/12/18at 12:13; Start 08/12/18 at 11:30 Active Scripts Active Reported Seroquel (Quetiapine Fumarate) 100 Mg Tablet 100 Mg PO QHS Miralax (Polyethylene Glycol 3350) 17 Gm Powd.pack 17 Gm PO DAILY Protonix (Pantoprazole Sodium) 40 Mg Tablet.dr 40 Mg PO DAILY Nifedipine Er (Nifedipine) 30 Mg Tablet.er 30 Mg PO BID Mirtazapine 15 Mg Tablet 15 Mg PO QHS Metoprolol Tartrate 50 Mg Tablet 50 Mg PO DAILY Melatonin 3 Mg Tablet 3 Mg PO QHS Probiotic (Lactobacillus Combo No.10) 1 Each Capsule 1 Each PO DAILY Vitamin D2 (Ergocalciferol (Vitamin D2)) 50,000 Unit Capsule 50,000 Unit PO WEEKLY MONDAY Depakote Er (Divalproex Sodium) 500 Mg Tab.er.24h 500 Mg PO QHS Vitamin B-12 (Cyanocobalamin (Vitamin B-12)) 1,000 Mcg Tablet 1,000 Mcg PO DAILY 14 Days Give daily for 14 days beginning 08/01/2018 Amlodipine Besylate 5 Mg Tablet 5 Mg PO DAILY Arimidex (Anastrozole) 1 Mg Tablet 1 Mg PO DAILY I have reviewed the current psychotropics carefully including drug interactions. Risk benefit ratio favors no change other than as noted in my dictated progress note. Diagnosis: Problems: (1) Anxiety disorder (2) Dementia, vascular, with delusions (3) Dementia, vascular, with depression (4) Dementia in Alzheimer's disease with delusions (5) Dementia in Alzheimer's disease with depression (6) Impulse control disorder CONNIE CAIN MD Aug 12, 2018 22:52
[2018-08-13 06:05] VITALS: BP 138/80
[2018-08-13] MEDS: DIVALPROEX 125 MG CAP.SPRINK PO SCH ×3 (09:15→20:11)
[2018-08-13] MEDS: LACTOBACILLUS RHAMNOSUS GG 1 CAPSULE. PO SCH (09:15)
[2018-08-13] MEDS: CYANOCOBALAMIN (VITAMIN B-12) 1,000 MCG TABLET. PO SCH (09:17)
[2018-08-13] MEDS: POLYETHYLENE GLYCOL 3350 17 GM PACKET. PO SCH (09:17)
[2018-08-13] MEDS: METOPROLOL TART IMMED RELEASE 25 MG TABLET PO SCH ×2 (09:17→20:11)
[2018-08-13] MEDS: PANTOPRAZOLE 40 MG TABLET. PO SCH (09:17)
[2018-08-13] MEDS: risperiDONE 0.25 MG TABLET. PO SCH ×3 (09:17→20:11)
[2018-08-13] MEDS: CHOLECALCIFEROL (VITAMIN D3) 50,000 UNIT CAPSULE PO SCH (09:19)
--- NOTE | 2018-08-13 12:08 | PN ---
DATE: 08/12/2018 PSYCHIATRIC PROGRESS NOTE This late entry of 08/12/2018 covers elements not covered in my initial note. SUBJECTIVE: I met with the patient in the evening. The patient slept 6-1/4 hours previous night. She remains confused, less agitated, tearful, crying around 1448 and receives Zyprexa at this time. REVIEW OF SYSTEMS: No CV, , pulmonary, eye, ENT system symptoms on review. Reliability poor. MENTAL STATUS EXAM: Oriented to herself. Insight, judgment, recent and remote memory, attention, concentration, fund of knowledge poor, consistent with her diagnosis mentioned in my initial note. PLAN: No change from initial note. MAN Malissa CAIN MD DR: SUNNY/oni JOB#: [id number] / [id number]
[2018-08-13 15:52] VITALS: BP 109/69
[2018-08-13] MEDS: MELATONIN 3 MG TABLET PO SCH (20:11)
[2018-08-13] MEDS: traZODone 100 MG TABLET. PO SCH (20:11)
[2018-08-13] MEDS: MIRTAZAPINE 15 MG TABLET PO SCH (20:16)
--- NOTE | 2018-08-13 22:45 | PDOC ---
Exam Note: Ayo Note: Please also refer to the separate dictated note~for this date of service dictated separately.~Patient seen individually. Discussed the patient with Nursing staff reviewed the chart.~Reviewed interim history and current functioning. Reviewed vital signs,~Labs/ Radiology~and current medications noted below. Continue current treatment with the changes noted in the dictated addendum note Assessment: Vital Signs: Vital Signs Date Time Temp Pulse Resp B/P (MAP) Pulse Ox O2 Delivery O2 Flow Rate FiO2 08/13/18 20:12 68 109/69 08/13/18 15:52 97.1 16 97 08/11/18 16:45 Room Air I&O Intake and Output 08/13/18 07:00 Intake Total 840 ml Balance 840 ml Intake Oral 840 ml Current Medications: Meds: Current Medications Acetaminophen (Tylenol) 650 mg PRN Q6HRS PRN PO PAIN / TEMP Last administered on 08/03/18at 06:10; Start 07/23/18 at 17:15 Multi-Ingredient Ointment (Analgesic [place]) 1 kenneth PRN QID PRN TP MUSCLE PAIN; Start 07/23/18 at 17:15 Al Hydroxide/Mg Hydroxide (Mylanta Plus Xs) 15 ml PRN AFTMEALHC PRN PO DYSPEPSIA; Start 07/23/18 at 17:15 Magnesium Hydroxide (Milk Of Magnesia) 2,400 mg PRN QHS PRN PO CONSTIPATION; Start 07/23/18 at 17:15 Divalproex Sodium (Depakote Er) 500 mg QHS PO Last administered on 08/07/18at 17:47; Start 07/23/18 at 22:00; Stop 08/07/18 at 18:05; Status DC Melatonin 3 mg QHS PO Last administered on 08/13/18at 20:11; Start 07/23/18 at 22:00 Mirtazapine (Remeron) 15 mg QHS PO Last administered on 08/13/18 20:16; Start 07/23/18 at 22:00 Quetiapine Fumarate (SEROquel) 100 mg QHS PO Last administered on 08/05/18 20:11; Start 07/23/18 at 22:00; Stop 08/06/18 at 18:27; Status DC Cyanocobalamin (Vitamin B-12) 1,000 mcg DAILY PO Last administered on 08/13/18 09:17; Start 07/24/18 at 09:00 Amlodipine Besylate (Norvasc) 5 mg DAILY PO Last administered on 07/24/18 08:57; Start 07/24/18 at 09:00; Stop 07/24/18 at 15:21; Status DC Anastrozole (Arimidex) 1 mg DAILY PO Last administered on 07/24/18 09:00; Start 07/24/18 at 09:00; Stop 07/24/18 at 22:35; Status DC Vitamin D (Vitamin D3) 50,000 unit WEEKLY PO Last administered on 08/13/18 09:19; Start 07/30/18 at 09:00 Lactobacillus Rhamnosus (Culturelle) 1 cap DAILY PO Last administered on 08/13/18 09:15; Start 07/24/18 at 09:00 Metoprolol Tartrate (Lopressor) 50 mg DAILY PO Last administered on 07/24/18 08:57; Start 07/24/18 at 09:00; Stop 07/24/18 at 15:22; Status DC Nifedipine (Procardia Xl) 30 mg BID PO Last administered on 07/24/18 08:56; Start 07/23/18 at 22:00; Stop 07/24/18 at 15:22; Status DC Pantoprazole Sodium (Protonix) 40 mg DAILY PO Last administered on 08/13/18 09:17; Start 07/24/18 at 09:00 Polyethylene Glycol (miraLAX) 17 gm DAILY PO Last administered on 08/13/18 09:17; Start 07/24/18 at 09:00 Metoprolol Tartrate (Lopressor) 25 mg BID PO Last administered on 08/13/18 20:11; Start 07/24/18 at 21:00 Nifedipine (Procardia Xl) 60 mg BID PO Last administered on 08/13/18 20:12; Start 07/24/18 at 21:00 Quetiapine Fumarate (SEROquel) 25 mg BID92 PO Last administered on 08/06/18 13:14; Start 07/26/18 at 09:00; Stop 08/06/18 at 18:27; Status DC Olanzapine (ZyPREXA ZYDIS) 2.5 mg PRN Q2HR PRN PO agitation/psychosis Last administered on 08/13/18 15:54; Start 07/25/18 at 17:30 Divalproex Sodium (Depakote Sprinkles) 125 mg 0900,1300 PO Last administered on 08/13/18 11:56; Start 07/26/18 at 13:00 Amoxicillin (Amoxil) 250 mg BID PO Last administered on 08/03/18 07:56; Start 07/27/18 at 21:00; Stop 08/03/18 at 20:59; Status DC Sertraline HCl (Zoloft) 25 mg DAILY PO Last administered on 08/03/18 07:57; Start 08/01/18 at 09:00; Stop 08/03/18 at 23:00; Status DC Sertraline HCl (Zoloft) 50 mg DAILY PO Last administered on 08/06/18 09:26; Start 08/04/18 at 09:00; Stop 08/06/18 at 16:51; Status DC Trazodone HCl (Desyrel) 50 mg PRN QHS PRN PO INSOMNIA, MAY REPEAT X1 Last administered on 08/08/18 01:08; Start 08/02/18 at 11:30; Stop 08/10/18 at 18:10; Status DC Fluvoxamine Maleate (Luvox) 25 mg DAILY PO Last administered on 08/09/18 08:06; Start 08/07/18 at 09:00; Stop 08/09/18 at 12:00; Status DC Fluvoxamine Maleate (Luvox) 50 mg DAILY PO Last administered on 08/13/18 09:17; Start 08/10/18 at 09:00 Risperidone (RisperDAL) 0.125 mg DAILY PO Last administered on 08/11/18 09:05; Start 08/07/18 at 09:00; Stop 08/12/18 at 00:59; Status DC Risperidone (RisperDAL) 0.25 mg HS PO Last administered on 08/13/18 20:11; Start 08/06/18 at 21:00 Divalproex Sodium (Depakote Sprinkles) 500 mg HS PO Last administered on 08/13/18 20:11; Start 08/08/18 at 21:00 Trazodone HCl (Desyrel) 100 mg PRN QHS PRN PO MAY REPEAT X 1; Start 08/10/18 at 18:30; Stop 08/10/18 at 18:33; Status DC Trazodone HCl (Desyrel) 100 mg QHS PO ; Start 08/10/18 at 18:30; Stop 08/10/18 at 18:43; Status DC Trazodone HCl (Desyrel) 100 mg QHS PRN PO INSOMNIA; Start 08/10/18 at 18:30; Stop 08/10/18 at 18:43; Status DC Hydroxyzine HCl (Atarax) 25 mg PRN Q4HRS PRN PO ANXIETY / AGITATION Last administered on 08/11/18at 16:43; Start 08/10/18 at 18:30 Trazodone HCl (Desyrel) 100 mg QHS PO Last administered on 08/13/18at 20:11; Start 08/10/18 at 21:00 Trazodone HCl (Desyrel) 100 mg PRN QHS PRN PO INSOMNIA; Start 08/10/18 at 21:00 Risperidone (RisperDAL) 0.25 mg DAILY PO Last administered on 08/13/18at 09:17; Start 08/12/18 at 09:00 Risperidone (RisperDAL) 0.125 mg DAILYBFRLUN PO Last administered on 08/13/18at 11:56; Start 08/12/18 at 11:30 Active Scripts Active Reported Seroquel (Quetiapine Fumarate) 100 Mg Tablet 100 Mg PO QHS Miralax (Polyethylene Glycol 3350) 17 Gm Powd.pack 17 Gm PO DAILY Protonix (Pantoprazole Sodium) 40 Mg Tablet.dr 40 Mg PO DAILY Nifedipine Er (Nifedipine) 30 Mg Tablet.er 30 Mg PO BID Mirtazapine 15 Mg Tablet 15 Mg PO QHS Metoprolol Tartrate 50 Mg Tablet 50 Mg PO DAILY Melatonin 3 Mg Tablet 3 Mg PO QHS Probiotic (Lactobacillus Combo No.10) 1 Each Capsule 1 Each PO DAILY Vitamin D2 (Ergocalciferol (Vitamin D2)) 50,000 Unit Capsule 50,000 Unit PO WEEKLY MONDAY Depakote Er (Divalproex Sodium) 500 Mg Tab.er.24h 500 Mg PO QHS Vitamin B-12 (Cyanocobalamin (Vitamin B-12)) 1,000 Mcg Tablet 1,000 Mcg PO DAILY 14 Days Give daily for 14 days beginning 08/01/2018 Amlodipine Besylate 5 Mg Tablet 5 Mg PO DAILY Arimidex (Anastrozole) 1 Mg Tablet 1 Mg PO DAILY I have reviewed the current psychotropics carefully including drug interactions. Risk benefit ratio favors no change other than as noted in my dictated progress note. Diagnosis: Problems: (1) Anxiety disorder (2) Dementia, vascular, with delusions (3) Dementia, vascular, with depression (4) Dementia in Alzheimer's disease with delusions (5) Dementia in Alzheimer's disease with depression (6) Impulse control disorder CONNIE CAIN MD Aug 13, 2018 22:45
[2018-08-14 05:49] VITALS: BP 116/72
[2018-08-14] MEDS: METOPROLOL TART IMMED RELEASE 25 MG TABLET PO SCH ×2 (09:00→20:49)
[2018-08-14] MEDS: LACTOBACILLUS RHAMNOSUS GG 1 CAPSULE. PO SCH (09:11)
[2018-08-14] MEDS: PANTOPRAZOLE 40 MG TABLET. PO SCH (09:11)
[2018-08-14] MEDS: POLYETHYLENE GLYCOL 3350 17 GM PACKET. PO SCH (09:11)
[2018-08-14] MEDS: risperiDONE 0.25 MG TABLET. PO SCH ×3 (09:11→20:49)
[2018-08-14] MEDS: CYANOCOBALAMIN (VITAMIN B-12) 1,000 MCG TABLET. PO SCH (09:11)
[2018-08-14] MEDS: DIVALPROEX 125 MG CAP.SPRINK PO SCH ×3 (09:11→20:48)
[2018-08-14 09:17] VITALS: BP 108/59
[2018-08-14 16:39] VITALS: BP 167/80
[2018-08-14] MEDS: MELATONIN 3 MG TABLET PO SCH (20:48)
[2018-08-14] MEDS: traZODone 100 MG TABLET. PO SCH (20:48)
[2018-08-14] MEDS: MIRTAZAPINE 15 MG TABLET PO SCH (20:49)
--- NOTE | 2018-08-14 22:50 | PDOC ---
Exam Note: Ayo Note: Please also refer to the separate dictated note~for this date of service dictated separately.~Patient seen individually. Discussed the patient with Nursing staff reviewed the chart.~Reviewed interim history and current functioning. Reviewed vital signs,~Labs/ Radiology~and current medications noted below. Continue current treatment with the changes noted in the dictated addendum note Assessment: Vital Signs: Vital Signs Date Time Temp Pulse Resp B/P (MAP) Pulse Ox O2 Delivery O2 Flow Rate FiO2 08/14/18 20:52 66 167/80 08/14/18 16:39 98.0 16 98 08/11/18 16:45 Room Air I&O Intake and Output 08/14/18 07:00 Intake Total 960 ml Balance 960 ml Intake Oral 960 ml # Bowel Movements 1 Current Medications: Meds: Current Medications Acetaminophen (Tylenol) 650 mg PRN Q6HRS PRN PO PAIN / TEMP Last administered on 08/03/18at 06:10; Start 07/23/18 at 17:15 Multi-Ingredient Ointment (Analgesic [place]) 1 kenneth PRN QID PRN TP MUSCLE PAIN; Start 07/23/18 at 17:15 Al Hydroxide/Mg Hydroxide (Mylanta Plus Xs) 15 ml PRN AFTMEALHC PRN PO DYSPEPSIA; Start 07/23/18 at 17:15 Magnesium Hydroxide (Milk Of [place]esia) 2,400 mg PRN QHS PRN PO CONSTIPATION; Start 07/23/18 at 17:15 Divalproex Sodium (Depakote Er) 500 mg QHS PO Last administered on 08/07/18at 17:47; Start 07/23/18 at 22:00; Stop 08/07/18 at 18:05; Status DC Melatonin 3 mg QHS PO Last administered on 08/14/18at 20:48; Start 07/23/18 at 22:00 Mirtazapine (Remeron) 15 mg QHS PO Last administered on 08/14/18at 20:49; Start 07/23/18 at 22:00 Quetiapine Fumarate (SEROquel) 100 mg QHS PO Last administered on 08/05/18at 20:11; Start 07/23/18 at 22:00; Stop 08/06/18 at 18:27; Status DC Cyanocobalamin (Vitamin B-12) 1,000 mcg DAILY PO Last administered on 08/14/18 09:11; Start 07/24/18 at 09:00 Amlodipine Besylate (Norvasc) 5 mg DAILY PO Last administered on 07/24/18 08:57; Start 07/24/18 at 09:00; Stop 07/24/18 at 15:21; Status DC Anastrozole (Arimidex) 1 mg DAILY PO Last administered on 07/24/18 09:00; Start 07/24/18 at 09:00; Stop 07/24/18 at 22:35; Status DC Vitamin D (Vitamin D3) 50,000 unit WEEKLY PO Last administered on 08/13/18 09:19; Start 07/30/18 at 09:00 Lactobacillus Rhamnosus (Culturelle) 1 cap DAILY PO Last administered on 08/14/18 09:11; Start 07/24/18 at 09:00 Metoprolol Tartrate (Lopressor) 50 mg DAILY PO Last administered on 07/24/18 08:57; Start 07/24/18 at 09:00; Stop 07/24/18 at 15:22; Status DC Nifedipine (Procardia Xl) 30 mg BID PO Last administered on 07/24/18 08:56; Start 07/23/18 at 22:00; Stop 07/24/18 at 15:22; Status DC Pantoprazole Sodium (Protonix) 40 mg DAILY PO Last administered on 08/14/18 09:11; Start 07/24/18 at 09:00 Polyethylene Glycol (miraLAX) 17 gm DAILY PO Last administered on 08/14/18 09:11; Start 07/24/18 at 09:00 Metoprolol Tartrate (Lopressor) 25 mg BID PO Last administered on 08/14/18 20:49; Start 07/24/18 at 21:00 Nifedipine (Procardia Xl) 60 mg BID PO Last administered on 08/14/18 20:52; Start 07/24/18 at 21:00 Quetiapine Fumarate (SEROquel) 25 mg BID92 PO Last administered on 08/06/18 13:14; Start 07/26/18 at 09:00; Stop 08/06/18 at 18:27; Status DC Olanzapine (ZyPREXA ZYDIS) 2.5 mg PRN Q2HR PRN PO agitation/psychosis Last administered on 08/13/18 15:54; Start 07/25/18 at 17:30 Divalproex Sodium (Depakote Sprinkles) 125 mg 0900,1300 PO Last administered on 08/14/18 12:18; Start 07/26/18 at 13:00 Amoxicillin (Amoxil) 250 mg BID PO Last administered on 08/03/18 07:56; Start 07/27/18 at 21:00; Stop 08/03/18 at 20:59; Status DC Sertraline HCl (Zoloft) 25 mg DAILY PO Last administered on 08/03/18 07:57; Start 08/01/18 at 09:00; Stop 08/03/18 at 23:00; Status DC Sertraline HCl (Zoloft) 50 mg DAILY PO Last administered on 08/06/18 09:26; Start 08/04/18 at 09:00; Stop 08/06/18 at 16:51; Status DC Trazodone HCl (Desyrel) 50 mg PRN QHS PRN PO INSOMNIA, MAY REPEAT X1 Last ad ministered on 08/08/18 01:08; Start 08/02/18 at 11:30; Stop 08/10/18 at 18:10; Status DC Fluvoxamine Maleate (Luvox) 25 mg DAILY PO Last administered on 08/09/18 08:06; Start 08/07/18 at 09:00; Stop 08/09/18 at 12:00; Status DC Fluvoxamine Maleate (Luvox) 50 mg DAILY PO Last administered on 08/14/18at 09:11; Start 08/10/18 at 09:00 Risperidone (RisperDAL) 0.125 mg DAILY PO Last administered on 08/11/18 09:05; Start 08/07/18 at 09:00; Stop 08/12/18 at 00:59; Status DC Risperidone (RisperDAL) 0.25 mg HS PO Last administered on 08/14/18 20:49; Start 08/06/18 at 21:00 Divalproex Sodium (Depakote Sprinkles) 500 mg HS PO Last administered on 08/14/18 20:48; Start 08/08/18 at 21:00 Trazodone HCl (Desyrel) 100 mg PRN QHS PRN PO MAY REPEAT X 1; Start 08/10/18 at 18:30; Stop 08/10/18 at 18:33; Status DC Trazodone HCl (Desyrel) 100 mg QHS PO ; Start 08/10/18 at 18:30; Stop 08/10/18 at 18:43; Status DC Trazodone HCl (Desyrel) 100 mg QHS PRN PO INSOMNIA; Start 08/10/18 at 18:30; Stop 08/10/18 at 18:43; Status DC Hydroxyzine HCl (Atarax) 25 mg PRN Q4HRS PRN PO ANXIETY / AGITATION Last administered on 08/11/18at 16:43; Start 08/10/18 at 18:30 Trazodone HCl (Desyrel) 100 mg QHS PO Last administered on 08/14/18at 20:48; Start 08/10/18 at 21:00 Trazodone HCl (Desyrel) 100 mg PRN QHS PRN PO INSOMNIA; Start 08/10/18 at 21:00 Risperidone (RisperDAL) 0.25 mg DAILY PO Last administered on 08/14/18at 09:11; Start 08/12/18 at 09:00 Risperidone (RisperDAL) 0.125 mg DAILYBFRLUN PO Last administered on 08/14/18at 12:18; Start 08/12/18 at 11:30 Active Scripts Active Reported Seroquel (Quetiapine Fumarate) 100 Mg Tablet 100 Mg PO QHS Miralax (Polyethylene Glycol 3350) 17 Gm Powd.pack 17 Gm PO DAILY Protonix (Pantoprazole Sodium) 40 Mg Tablet.dr 40 Mg PO DAILY Nifedipine Er (Nifedipine) 30 Mg Tablet.er 30 Mg PO BID Mirtazapine 15 Mg Tablet 15 Mg PO QHS Metoprolol Tartrate 50 Mg Tablet 50 Mg PO DAILY Melatonin 3 Mg Tablet 3 Mg PO QHS Probiotic (Lactobacillus Combo No.10) 1 Each Capsule 1 Each PO DAILY Vitamin D2 (Ergocalciferol (Vitamin D2)) 50,000 Unit Capsule 50,000 Unit PO WEEKLY MONDAY Depakote Er (Divalproex Sodium) 500 Mg Tab.er.24h 500 Mg PO QHS Vitamin B-12 (Cyanocobalamin (Vitamin B-12)) 1,000 Mcg Tablet 1,000 Mcg PO DAILY 14 Days Give daily for 14 days beginning 08/01/2018 Amlodipine Besylate 5 Mg Tablet 5 Mg PO DAILY Arimidex (Anastrozole) 1 Mg Tablet 1 Mg PO DAILY I have reviewed the current psychotropics carefully including drug interactions. Risk benefit ratio favors no change other than as noted in my dictated progress note. Diagnosis: Problems: (1) Anxiety disorder (2) Dementia, vascular, with delusions (3) Dementia, vascular, with depression (4) Dementia in Alzheimer's disease with delusions (5) Dementia in Alzheimer's disease with depression (6) Impulse control disorder CONNIE CAIN MD Aug 14, 2018 22:50
--- NOTE | 2018-08-15 01:26 | PN ---
DATE: 08/13/2018 PSYCHIATRIC PROGRESS NOTE This is a late entry 08/13/2018 covers elements not covered in my initial note. SUBJECTIVE: I met with the patient in the evening. The patient slept 6-1/2 hours previous night. She remains confused, wanders the hallways. Speech is word salad. Received Zyprexa around 3:00 p.m. due to agitation. She is looking and seeing kids around her, none of which is accurate. REVIEW OF SYSTEMS: No CV, , pulmonary, eye, ENT system symptoms on review. Reliability poor. MENTAL STATUS EXAM: Oriented to self. Insight, judgment, recent and remote memory, attention, concentration, fund of knowledge poor, consistent with her diagnosis mentioned in my initial note. PLAN: No change from initial note for now. MAN Malissa CAIN MD DR: SUNNY/oni JOB#: [id number] / [id number]
[2018-08-15 06:04] VITALS: BP 136/72
[2018-08-15] MEDS: METOPROLOL TART IMMED RELEASE 25 MG TABLET PO SCH ×2 (08:17→20:45)
[2018-08-15] MEDS: LACTOBACILLUS RHAMNOSUS GG 1 CAPSULE. PO SCH (08:17)
[2018-08-15] MEDS: DIVALPROEX 125 MG CAP.SPRINK PO SCH ×3 (08:17→20:44)
[2018-08-15] MEDS: CYANOCOBALAMIN (VITAMIN B-12) 1,000 MCG TABLET. PO SCH (08:18)
[2018-08-15] MEDS: PANTOPRAZOLE 40 MG TABLET. PO SCH (08:18)
[2018-08-15] MEDS: risperiDONE 0.25 MG TABLET. PO SCH ×3 (08:18→20:44)
[2018-08-15] MEDS: POLYETHYLENE GLYCOL 3350 17 GM PACKET. PO SCH (08:18)
[2018-08-15 15:49] VITALS: BP 128/71
[2018-08-15] MEDS: traZODone 100 MG TABLET. PO SCH (20:44)
[2018-08-15] MEDS: MELATONIN 3 MG TABLET PO SCH (20:44)
[2018-08-15] MEDS: MIRTAZAPINE 15 MG TABLET PO SCH (20:44)
--- NOTE | 2018-08-15 23:07 | PDOC ---
Exam Note: Ayo Note: Please also refer to the separate dictated note~for this date of service dictated separately.~Patient seen individually. Discussed the patient with Nursing staff reviewed the chart.~Reviewed interim history and current functioning. Reviewed vital signs,~Labs/ Radiology~and current medications noted below. Continue current treatment with the changes noted in the dictated addendum note Assessment: Vital Signs: Vital Signs Date Time Temp Pulse Resp B/P (MAP) Pulse Ox O2 Delivery O2 Flow Rate FiO2 08/15/18 20:47 64 128/71 08/15/18 15:49 97.8 20 99 08/11/18 16:45 Room Air I&O Intake and Output 08/15/18 06:59 Intake Total 1560 ml Balance 1560 ml Intake Oral 1560 ml Current Medications: Meds: Current Medications Acetaminophen (Tylenol) 650 mg PRN Q6HRS PRN PO PAIN / TEMP Last administered on 08/03/18at 06:10; Start 07/23/18 at 17:15 Multi-Ingredient Ointment (Analgesic [place]) 1 kenneth PRN QID PRN TP MUSCLE PAIN; Start 07/23/18 at 17:15 Al Hydroxide/Mg Hydroxide (Mylanta Plus Xs) 15 ml PRN AFTMEALHC PRN PO DYSPEPSIA; Start 07/23/18 at 17:15 Magnesium Hydroxide (Milk Of Magnesia) 2,400 mg PRN QHS PRN PO CONSTIPATION; Start 07/23/18 at 17:15 Divalproex Sodium (Depakote Er) 500 mg QHS PO Last administered on 08/07/18at 17:47; Start 07/23/18 at 22:00; Stop 08/07/18 at 18:05; Status DC Melatonin 3 mg QHS PO Last administered on 08/15/18at 20:44; Start 07/23/18 at 22:00 Mirtazapine (Remeron) 15 mg QHS PO Last administered on 08/15/18 20:44; Start 07/23/18 at 22:00 Quetiapine Fumarate (SEROquel) 100 mg QHS PO Last administered on 08/05/18 20:11; Start 07/23/18 at 22:00; Stop 08/06/18 at 18:27; Status DC Cyanocobalamin (Vitamin B-12) 1,000 mcg DAILY PO Last administered on 08/15/18 08:18; Start 07/24/18 at 09:00 Amlodipine Besylate (Norvasc) 5 mg DAILY PO Last administered on 07/24/18 08:57; Start 07/24/18 at 09:00; Stop 07/24/18 at 15:21; Status DC Anastrozole (Arimidex) 1 mg DAILY PO Last administered on 07/24/18 09:00; Start 07/24/18 at 09:00; Stop 07/24/18 at 22:35; Status DC Vitamin D (Vitamin D3) 50,000 unit WEEKLY PO Last administered on 08/13/18 09:19; Start 07/30/18 at 09:00 Lactobacillus Rhamnosus (Culturelle) 1 cap DAILY PO Last administered on 08/15/18 08:17; Start 07/24/18 at 09:00 Metoprolol Tartrate (Lopressor) 50 mg DAILY PO Last administered on 07/24/18 08:57; Start 07/24/18 at 09:00; Stop 07/24/18 at 15:22; Status DC Nifedipine (Procardia Xl) 30 mg BID PO Last administered on 07/24/18 08:56; Start 07/23/18 at 22:00; Stop 07/24/18 at 15:22; Status DC Pantoprazole Sodium (Protonix) 40 mg DAILY PO Last administered on 08/15/18 08:18; Start 07/24/18 at 09:00 Polyethylene Glycol (miraLAX) 17 gm DAILY PO Last administered on 08/15/18 08:18; Start 07/24/18 at 09:00 Metoprolol Tartrate (Lopressor) 25 mg BID PO Last administered on 08/15/18 20:45; Start 07/24/18 at 21:00 Nifedipine (Procardia Xl) 60 mg BID PO Last administered on 08/15/18 20:47; Start 07/24/18 at 21:00 Quetiapine Fumarate (SEROquel) 25 mg BID92 PO Last administered on 08/06/18 13:14; Start 07/26/18 at 09:00; Stop 08/06/18 at 18:27; Status DC Olanzapine (ZyPREXA ZYDIS) 2.5 mg PRN Q2HR PRN PO agitation/psychosis Last administered on 08/13/18 15:54; Start 07/25/18 at 17:30 Divalproex Sodium (Depakote Sprinkles) 125 mg 0900,1300 PO Last administered on 08/15/18 12:04; Start 07/26/18 at 13:00 Amoxicillin (Amoxil) 250 mg BID PO Last administered on 08/03/18 07:56; Start 07/27/18 at 21:00; Stop 08/03/18 at 20:59; Status DC Sertraline HCl (Zoloft) 25 mg DAILY PO Last administered on 08/03/18 07:57; Start 08/01/18 at 09:00; Stop 08/03/18 at 23:00; Status DC Sertraline HCl (Zoloft) 50 mg DAILY PO Last administered on 08/06/18 09:26; Start 08/04/18 at 09:00; Stop 08/06/18 at 16:51; Status DC Trazodone HCl (Desyrel) 50 mg PRN QHS PRN PO INSOMNIA, MAY REPEAT X1 Last administered on 08/08/18 01:08; Start 08/02/18 at 11:30; Stop 08/10/18 at 18:10; Status DC Fluvoxamine Maleate (Luvox) 25 mg DAILY PO Last administered on 08/09/18 08:06; Start 08/07/18 at 09:00; Stop 08/09/18 at 12:00; Status DC Fluvoxamine Maleate (Luvox) 50 mg DAILY PO Last administered on 08/15/18 08:18; Start 08/10/18 at 09:00 Risperidone (RisperDAL) 0.125 mg DAILY PO Last administered on 08/11/18 09:05; Start 08/07/18 at 09:00; Stop 08/12/18 at 00:59; Status DC Risperidone (RisperDAL) 0.25 mg HS PO Last administered on 08/15/18 20:44; Start 08/06/18 at 21:00 Divalproex Sodium (Depakote Sprinkles) 500 mg HS PO Last administered on 08/15/18 20:44; Start 08/08/18 at 21:00 Trazodone HCl (Desyrel) 100 mg PRN QHS PRN PO MAY REPEAT X 1; Start 08/10/18 at 18:30; Stop 08/10/18 at 18:33; Status DC Trazodone HCl (Desyrel) 100 mg QHS PO ; Start 08/10/18 at 18:30; Stop 08/10/18 at 18:43; Status DC Trazodone HCl (Desyrel) 100 mg QHS PRN PO INSOMNIA; Start 08/10/18 at 18:30; Stop 08/10/18 at 18:43; Status DC Hydroxyzine HCl (Atarax) 25 mg PRN Q4HRS PRN PO ANXIETY / AGITATION Last administered on 08/11/18at 16:43; Start 08/10/18 at 18:30 Trazodone HCl (Desyrel) 100 mg QHS PO Last administered on 08/15/18at 20:44; Start 08/10/18 at 21:00 Trazodone HCl (Desyrel) 100 mg PRN QHS PRN PO INSOMNIA Last administered on 08/15/18at 00:34; Start 08/10/18 at 21:00 Risperidone (RisperDAL) 0.25 mg DAILY PO Last administered on 08/15/18 08:18; Start 08/12/18 at 09:00 Risperidone (RisperDAL) 0.125 mg DAILYBFRLUN PO Last administered on 08/15/18at 12:04; Start 08/12/18 at 11:30 Active Scripts Active Reported Seroquel (Quetiapine Fumarate) 100 Mg Tablet 100 Mg PO QHS Miralax (Polyethylene Glycol 3350) 17 Gm Powd.pack 17 Gm PO DAILY Protonix (Pantoprazole Sodium) 40 Mg Tablet.dr 40 Mg PO DAILY Nifedipine Er (Nifedipine) 30 Mg Tablet.er 30 Mg PO BID Mirtazapine 15 Mg Tablet 15 Mg PO QHS Metoprolol Tartrate 50 Mg Tablet 50 Mg PO DAILY Melatonin 3 Mg Tablet 3 Mg PO QHS Probiotic (Lactobacillus Combo No.10) 1 Each Capsule 1 Each PO DAILY Vitamin D2 (Ergocalciferol (Vitamin D2)) 50,000 Unit Capsule 50,000 Unit PO WEEKLY MONDAY Depakote Er (Divalproex Sodium) 500 Mg Tab.er.24h 500 Mg PO QHS Vitamin B-12 (Cyanocobalamin (Vitamin B-12)) 1,000 Mcg Tablet 1,000 Mcg PO DAILY 14 Days Give daily for 14 days beginning 08/01/2018 Amlodipine Besylate 5 Mg Tablet 5 Mg PO DAILY Arimidex (Anastrozole) 1 Mg Tablet 1 Mg PO DAILY I have reviewed the current psychotropics carefully including drug interactions. Risk benefit ratio favors no change other than as noted in my dictated progress note. Diagnosis: Problems: (1) Anxiety disorder (2) Dementia, vascular, with delusions (3) Dementia, vascular, with depression (4) Dementia in Alzheimer's disease with delusions (5) Dementia in Alzheimer's disease with depression (6) Impulse control disorder CONNIE CAIN MD Aug 15, 2018 23:07
--- NOTE | 2018-08-16 04:52 | PN ---
DATE: 08/14/2018 PSYCHIATRIC PROGRESS NOTE This late entry of 08/14/2018 covers elements not covered in my initial note. SUBJECTIVE: I met with the patient in the evening. The patient slept 8 hours previous night. She has been wandering, intrusive, crawling on the floor looking for a man. She is wanting to go back to [place]. Initially nursing staff were unsure if this was accurate, but in fact there is a city by that name in [place] and that is where she is from. Remote memory in some respect at times comes through better. REVIEW OF SYSTEMS: No CV, , pulmonary, eye, ENT system symptoms on review. Reliability poor. MENTAL STATUS EXAM: Oriented to herself. Insight, judgment, recent and remote memory, attention, concentration, fund of knowledge poor, consistent with her diagnosis mentioned in my initial note. PLAN: No change from initial note. MAN Malissa CAIN MD DR: SUNYN/oni JOB#: [id number] / [id number]
[2018-08-16 06:03] VITALS: BP 125/74
[2018-08-16] MEDS: LACTOBACILLUS RHAMNOSUS GG 1 CAPSULE. PO SCH (09:30)
[2018-08-16] MEDS: DIVALPROEX 125 MG CAP.SPRINK PO SCH ×3 (09:31→20:20)
[2018-08-16] MEDS: METOPROLOL TART IMMED RELEASE 25 MG TABLET PO SCH ×2 (09:31→20:20)
[2018-08-16] MEDS: risperiDONE 0.25 MG TABLET. PO SCH ×3 (09:32→20:19)
[2018-08-16] MEDS: CYANOCOBALAMIN (VITAMIN B-12) 1,000 MCG TABLET. PO SCH (09:32)
[2018-08-16] MEDS: PANTOPRAZOLE 40 MG TABLET. PO SCH (09:32)
[2018-08-16] MEDS: POLYETHYLENE GLYCOL 3350 17 GM PACKET. PO SCH (09:32)
[2018-08-16 16:07] VITALS: BP 101/54
[2018-08-16] MEDS: traZODone 100 MG TABLET. PO SCH (20:19)
[2018-08-16] MEDS: MIRTAZAPINE 15 MG TABLET PO SCH (20:20)
[2018-08-16] MEDS: MELATONIN 3 MG TABLET PO SCH (20:21)
--- NOTE | 2018-08-16 23:11 | PDOC ---
Exam Note: Ayo Note: Please also refer to the separate dictated note~for this date of service dictated separately.~Patient seen individually. Discussed the patient with Nursing staff reviewed the chart.~Reviewed interim history and current functioning. Reviewed vital signs,~Labs/ Radiology~and current medications noted below. Continue current treatment with the changes noted in the dictated addendum note Assessment: Vital Signs: Vital Signs Date Time Temp Pulse Resp B/P (MAP) Pulse Ox O2 Delivery O2 Flow Rate FiO2 08/16/18 20:23 62 101/54 08/16/18 16:07 98.8 16 95 08/11/18 16:45 Room Air I&O Intake and Output 08/16/18 07:00 Intake Total 920 ml Balance 920 ml Intake Oral 920 ml Current Medications: Meds: Current Medications Acetaminophen (Tylenol) 650 mg PRN Q6HRS PRN PO PAIN / TEMP Last administered on 08/03/18at 06:10; Start 07/23/18 at 17:15 Multi-Ingredient Ointment (Analgesic [place]) 1 kenneth PRN QID PRN TP MUSCLE PAIN; Start 07/23/18 at 17:15 Al Hydroxide/Mg Hydroxide (Mylanta Plus Xs) 15 ml PRN AFTMEALHC PRN PO DYSPEPSIA; Start 07/23/18 at 17:15 Magnesium Hydroxide (Milk Of Magnesia) 2,400 mg PRN QHS PRN PO CONSTIPATION; Start 07/23/18 at 17:15 Divalproex Sodium (Depakote Er) 500 mg QHS PO Last administered on 08/07/18at 17:47; Start 07/23/18 at 22:00; Stop 08/07/18 at 18:05; Status DC Melatonin 3 mg QHS PO Last administered on 08/16/18at 20:21; Start 07/23/18 at 22:00 Mirtazapine (Remeron) 15 mg QHS PO Last administered on 08/16/18 20:20; Start 07/23/18 at 22:00 Quetiapine Fumarate (SEROquel) 100 mg QHS PO Last administered on 08/05/18 20:11; Start 07/23/18 at 22:00; Stop 08/06/18 at 18:27; Status DC Cyanocobalamin (Vitamin B-12) 1,000 mcg DAILY PO Last administered on 08/16/18 09:32; Start 07/24/18 at 09:00 Amlodipine Besylate (Norvasc) 5 mg DAILY PO Last administered on 07/24/18 08:57; Start 07/24/18 at 09:00; Stop 07/24/18 at 15:21; Status DC Anastrozole (Arimidex) 1 mg DAILY PO Last administered on 07/24/18 09:00; Start 07/24/18 at 09:00; Stop 07/24/18 at 22:35; Status DC Vitamin D (Vitamin D3) 50,000 unit WEEKLY PO Last administered on 08/13/18 09:19; Start 07/30/18 at 09:00 Lactobacillus Rhamnosus (Culturelle) 1 cap DAILY PO Last administered on 08/16/18 09:30; Start 07/24/18 at 09:00 Metoprolol Tartrate (Lopressor) 50 mg DAILY PO Last administered on 07/24/18 08:57; Start 07/24/18 at 09:00; Stop 07/24/18 at 15:22; Status DC Nifedipine (Procardia Xl) 30 mg BID PO Last administered on 07/24/18 08:56; Start 07/23/18 at 22:00; Stop 07/24/18 at 15:22; Status DC Pantoprazole Sodium (Protonix) 40 mg DAILY PO Last administered on 08/16/18 09:32; Start 07/24/18 at 09:00 Polyethylene Glycol (miraLAX) 17 gm DAILY PO Last administered on 08/16/18 09:32; Start 07/24/18 at 09:00 Metoprolol Tartrate (Lopressor) 25 mg BID PO Last administered on 08/16/18 20:20; Start 07/24/18 at 21:00 Nifedipine (Procardia Xl) 60 mg BID PO Last administered on 08/16/18 20:23; Start 07/24/18 at 21:00 Quetiapine Fumarate (SEROquel) 25 mg BID92 PO Last administered on 08/06/18 13:14; Start 07/26/18 at 09:00; Stop 08/06/18 at 18:27; Status DC Olanzapine (ZyPREXA ZYDIS) 2.5 mg PRN Q2HR PRN PO agitation/psychosis Last administered on 08/13/18 15:54; Start 07/25/18 at 17:30 Divalproex Sodium (Depakote Sprinkles) 125 mg 0900,1300 PO Last administered on 08/16/18 12:13; Start 07/26/18 at 13:00 Amoxicillin (Amoxil) 250 mg BID PO Last administered on 08/03/18 07:56; Start 07/27/18 at 21:00; Stop 08/03/18 at 20:59; Status DC Sertraline HCl (Zoloft) 25 mg DAILY PO Last administered on 08/03/18 07:57; Start 08/01/18 at 09:00; Stop 08/03/18 at 23:00; Status DC Sertraline HCl (Zoloft) 50 mg DAILY PO Last administered on 08/06/18 09:26; Start 08/04/18 at 09:00; Stop 08/06/18 at 16:51; Status DC Trazodone HCl (Desyrel) 50 mg PRN QHS PRN PO INSOMNIA, MAY REPEAT X1 Last administered on 08/08/18at 01:08; Start 08/02/18 at 11:30; Stop 08/10/18 at 18:10; Status DC Fluvoxamine Maleate (Luvox) 25 mg DAILY PO Last administered on 08/09/18 08:06; Start 08/07/18 at 09:00; Stop 08/09/18 at 12:00; Status DC Fluvoxamine Maleate (Luvox) 50 mg DAILY PO Last administered on 08/16/18 09:31; Start 08/10/18 at 09:00 Risperidone (RisperDAL) 0.125 mg DAILY PO Last administered on 08/11/18 09:05; Start 08/07/18 at 09:00; Stop 08/12/18 at 00:59; Status DC Risperidone (RisperDAL) 0.25 mg HS PO Last administered on 08/16/18 20:19; Start 08/06/18 at 21:00 Divalproex Sodium (Depakote Sprinkles) 500 mg HS PO Last administered on 08/16/18 20:20; Start 08/08/18 at 21:00 Trazodone HCl (Desyrel) 100 mg PRN QHS PRN PO MAY REPEAT X 1; Start 08/10/18 at 18:30; Stop 08/10/18 at 18:33; Status DC Trazodone HCl (Desyrel) 100 mg QHS PO ; Start 08/10/18 at 18:30; Stop 08/10/18 at 18:43; Status DC Trazodone HCl (Desyrel) 100 mg QHS PRN PO INSOMNIA; Start 08/10/18 at 18:30; Stop 08/10/18 at 18:43; Status DC Hydroxyzine HCl (Atarax) 25 mg PRN Q4HRS PRN PO ANXIETY / AGITATION Last administered on 08/11/18at 16:43; Start 08/10/18 at 18:30 Trazodone HCl (Desyrel) 100 mg QHS PO Last administered on 08/16/18at 20:19; Start 08/10/18 at 21:00 Trazodone HCl (Desyrel) 100 mg PRN QHS PRN PO INSOMNIA Last administered on 08/15/18at 00:34; Start 08/10/18 at 21:00 Risperidone (RisperDAL) 0.25 mg DAILY PO Last administered on 08/16/18at 09:32; Start 08/12/18 at 09:00 Risperidone (RisperDAL) 0.125 mg DAILYBFRLUN PO Last administered on 08/16/18at 12:13; Start 08/12/18 at 11:30 Active Scripts Active Reported Seroquel (Quetiapine Fumarate) 100 Mg Tablet 100 Mg PO QHS Miralax (Polyethylene Glycol 3350) 17 Gm Powd.pack 17 Gm PO DAILY Protonix (Pantoprazole Sodium) 40 Mg Tablet.dr 40 Mg PO DAILY Nifedipine Er (Nifedipine) 30 Mg Tablet.er 30 Mg PO BID Mirtazapine 15 Mg Tablet 15 Mg PO QHS Metoprolol Tartrate 50 Mg Tablet 50 Mg PO DAILY Melatonin 3 Mg Tablet 3 Mg PO QHS Probiotic (Lactobacillus Combo No.10) 1 Each Capsule 1 Each PO DAILY Vitamin D2 (Ergocalciferol (Vitamin D2)) 50,000 Unit Capsule 50,000 Unit PO WEEKLY MONDAY Depakote Er (Divalproex Sodium) 500 Mg Tab.er.24h 500 Mg PO QHS Vitamin B-12 (Cyanocobalamin (Vitamin B-12)) 1,000 Mcg Tablet 1,000 Mcg PO DAILY 14 Days Give daily for 14 days beginning 08/01/2018 Amlodipine Besylate 5 Mg Tablet 5 Mg PO DAILY Arimidex (Anastrozole) 1 Mg Tablet 1 Mg PO DAILY I have reviewed the current psychotropics carefully including drug interactions. Risk benefit ratio favors no change other than as noted in my dictated progress note. Diagnosis: Problems: (1) Anxiety disorder (2) Dementia, vascular, with delusions (3) Dementia, vascular, with depression (4) Dementia in Alzheimer's disease with delusions (5) Dementia in Alzheimer's disease with depression (6) Impulse control disorder CONNIE CAIN MD Aug 16, 2018 23:10
[2018-08-17 06:53] VITALS: BP 135/70
[2018-08-17 07:08] LABS: BASO % 1 % (0-3); EOS # 0.2 x10^3/uL (0.0-0.7); EOS % 5 % (0-3); LYMPH # 0.9 x10^3/uL (1.0-4.8); LYMPH % 24 % (24-48); MEAN CORPUSCULAR HEMOGLOBIN 34 pg (25-35); MEAN CORPUSCULAR HGB CONC 34 g/dL (31-37); MEAN CORPUSCULAR VOLUME 101 fL (79-100); MONO # 0.6 x10^3/uL (0.0-1.1); MONO % 14 % (0-9); NEUT # 2.2 x10^3uL (1.8-7.7); NEUT % 56 % (31-73); PLATELET COUNT 155 x10^3/uL (140-400); RED BLOOD COUNT 3.56 x10^6/uL (3.50-5.40); RED CELL DISTRIBUTION WIDTH 14.5 % (11.5-14.5); WHITE BLOOD COUNT 3.9 x10^3/uL (4.0-11.0)
[2018-08-17 07:16] LABS: ALBUMIN 3.1 g/dL (3.4-5.0); ALBUMIN/GLOBULIN RATIO 0.8 (1.0-1.7); CALCIUM 9.8 mg/dL (8.5-10.1); CREATININE 1.1 mg/dL (0.6-1.0); GFR 47.6; POTASSIUM 4.4 mmol/L (3.5-5.1); TOTAL BILIRUBIN 0.2 mg/dL (0.2-1.0); TOTAL PROTEIN 6.9 g/dL (6.4-8.2)
[2018-08-17 07:21] LABS: VAL ACID 50 mcg/mL (50-100)
[2018-08-17] MEDS: DIVALPROEX 125 MG CAP.SPRINK PO SCH ×3 (09:08→20:03)
[2018-08-17] MEDS: LACTOBACILLUS RHAMNOSUS GG 1 CAPSULE. PO SCH (09:09)
[2018-08-17] MEDS: CYANOCOBALAMIN (VITAMIN B-12) 1,000 MCG TABLET. PO SCH (09:09)
[2018-08-17] MEDS: POLYETHYLENE GLYCOL 3350 17 GM PACKET. PO SCH (09:09)
[2018-08-17] MEDS: METOPROLOL TART IMMED RELEASE 25 MG TABLET PO SCH ×2 (09:09→20:04)
[2018-08-17] MEDS: risperiDONE 0.25 MG TABLET. PO SCH ×3 (09:09→20:03)
[2018-08-17] MEDS: PANTOPRAZOLE 40 MG TABLET. PO SCH (09:09)
[2018-08-17 15:26] VITALS: BP 126/70
--- NOTE | 2018-08-17 18:14 | PN ---
DATE: 08/15/2018 PSYCHIATRIC PROGRESS NOTE This late entry 08/15/2018 covers elements not covered in my initial note. SUBJECTIVE: I met with the patient in the evening. The patient slept 3-1/4 hours previous night. Per nursing report, the patient has had a "amazing day." She has been behaviorally much better as compared to just a couple of days back. She attended groups visited with family compliant with medications. REVIEW OF SYSTEMS: No CV, , pulmonary, eye, ENT system symptoms on review. Reliability poor. MENTAL STATUS EXAM: Oriented to herself. Insight, judgment, recent and remote memory, attention, concentration, fund of knowledge poor, consistent with her diagnosis mentioned in my initial note. PLAN: No change from initial note. MAN Malissa CAIN MD DR: SUNNY/oni JOB#: [id number] / [id number]
[2018-08-17] MEDS: MIRTAZAPINE 15 MG TABLET PO SCH (20:03)
[2018-08-17] MEDS: MELATONIN 3 MG TABLET PO SCH (20:03)
[2018-08-17] MEDS: traZODone 100 MG TABLET. PO SCH (20:04)
--- NOTE | 2018-08-17 22:49 | PDOC ---
Exam Note: Ayo Note: Please also refer to the separate dictated note~for this date of service dictated separately.~Patient seen individually. Discussed the patient with Nursing staff reviewed the chart.~Reviewed interim history and current functioning. Reviewed vital signs,~Labs/ Radiology~and current medications noted below. Continue current treatment with the changes noted in the dictated addendum note Assessment: Vital Signs/I&O: Vital Signs Date Time Temp Pulse Resp B/P (MAP) Pulse Ox O2 Delivery O2 Flow Rate FiO2 08/17/18 20:04 58 126/70 08/17/18 15:26 96.3 18 100 08/11/18 16:45 Room Air I & O 08/16/18 08/16/18 08/17/18 15:00 23:00 07:00 Intake Total 720 ml 600 ml Balance 720 ml 600 ml Labs: Laboratory Tests Test 08/17/18 06:41 White Blood Count 3.9 x10^3/uL (4.0-11.0) L Red Blood Count 3.56 x10^6/uL (3.50-5.40) Hemoglobin 12.0 g/dL (12.0-15.5) Hematocrit 36.0 % (36.0-47.0) Mean Corpuscular Volume 101 fL (79-100) H Mean Corpuscular Hemoglobin 34 pg (25-35) Mean Corpuscular Hemoglobin Concent 34 g/dL (31-37) Red Cell Distribution Width 14.5 % (11.5-14.5) Platelet Count 155 x10^3/uL (140-400) Neutrophils (%) (Auto) 56 % (31-73) Lymphocytes (%) (Auto) 24 % (24-48) Monocytes (%) (Auto) 14 % (0-9) H Eosinophils (%) (Auto) 5 % (0-3) H Basophils (%) (Auto) 1 % (0-3) Neutrophils # (Auto) 2.2 x10^3uL (1.8-7.7) Lymphocytes # (Auto) 0.9 x10^3/uL (1.0-4.8) L Monocytes # (Auto) 0.6 x10^3/uL (0.0-1.1) Eosinophils # (Auto) 0.2 x10^3/uL (0.0-0.7) Basophils # (Auto) 0.0 x10^3/uL (0.0-0.2) Sodium Level 145 mmol/L (136-145) Potassium Level 4.4 mmol/L (3.5-5.1) Chloride Level 106 mmol/L (98-107) Carbon Dioxide Level 36 mmol/L (21-32) H Anion Gap 3 (6-14) L Blood Urea Nitrogen 37 mg/dL (7-20) H Creatinine 1.1 mg/dL (0.6-1.0) H Estimated GFR (Cockcroft-Gault) 47.6 BUN/Creatinine Ratio 34 (6-20) H Glucose Level 106 mg/dL (70-99) H Calcium Level 9.8 mg/dL (8.5-10.1) Total Bilirubin 0.2 mg/dL (0.2-1.0) Aspartate Amino Transferase (AST) 26 U/L (15-37) Alanine Aminotransferase (ALT) 20 U/L (14-59) Alkaline Phosphatase 71 U/L (46-116) Total Protein 6.9 g/dL (6.4-8.2) Albumin 3.1 g/dL (3.4-5.0) L Albumin/Globulin Ratio 0.8 (1.0-1.7) L Valproic Acid Level 50 mcg/mL (50-100) Valproic Acid Last Dose Date 08/16/18 Valproic Acid Last Dose Time 2100 Current Medications: I have reviewed the current psychotropics carefully including drug interactions. Risk benefit ratio favors no change other than as noted in my dictated progress note. Diagnosis: Problems: (1) Anxiety disorder (2) Dementia, vascular, with delusions (3) Dementia, vascular, with depression (4) Dementia in Alzheimer's disease with delusions (5) Dementia in Alzheimer's disease with depression (6) Impulse control disorder CONNIE CAIN MD Aug 17, 2018 22:49
--- NOTE | 2018-08-18 03:48 | PN ---
DATE: 08/17/2018 PSYCHIATRIC PROGRESS NOTE This late entry, 08/16/2018, covers elements not covered in my initial note. SUBJECTIVE: I met with the patient in the evening. The patient slept 6-3/4 previous night. She was quite busy, anxious, restless, the previous night. All the furniture had been removed by staff to give her a clear area. software product manager, she was at the nursing window, banging on the window, anxious, restless, but then rest of the day, she has done better. No CV, , pulmonary, eye, ENT system symptoms on review. Reliability poor. She slept 6-3/4 hours previous night. Last valproic acid level was 54 and we will repeat it. We will also check CBC, CMP. No CV, , pulmonary, eye, ENT system symptoms on review. Reliability poor. MENTAL STATUS EXAM: Oriented to herself. Insight, judgment, recent and remote memory, attention, concentration, fund of knowledge poor, consistent with her diagnosis mentioned in my initial note. PLAN: No change from initial note other than what is noted above. CONNIE CAIN MD DR: SUNNY/oni JOB#: [id number] / [id number]
[2018-08-18 05:51] VITALS: BP 128/71
[2018-08-18] MEDS: risperiDONE 0.25 MG TABLET. PO SCH ×3 (07:58→19:59)
[2018-08-18] MEDS: LACTOBACILLUS RHAMNOSUS GG 1 CAPSULE. PO SCH (07:58)
[2018-08-18] MEDS: DIVALPROEX 125 MG CAP.SPRINK PO SCH ×3 (07:58→19:59)
[2018-08-18] MEDS: POLYETHYLENE GLYCOL 3350 17 GM PACKET. PO SCH (07:58)
[2018-08-18] MEDS: PANTOPRAZOLE 40 MG TABLET. PO SCH (07:58)
[2018-08-18] MEDS: CYANOCOBALAMIN (VITAMIN B-12) 1,000 MCG TABLET. PO SCH (07:58)
[2018-08-18] MEDS: METOPROLOL TART IMMED RELEASE 25 MG TABLET PO SCH ×2 (07:59→20:00)
[2018-08-18 15:53] VITALS: BP 120/69
[2018-08-18] MEDS: traZODone 100 MG TABLET. PO SCH (19:59)
[2018-08-18] MEDS: MELATONIN 3 MG TABLET PO SCH (19:59)
[2018-08-18] MEDS: MIRTAZAPINE 15 MG TABLET PO SCH (19:59)
--- NOTE | 2018-08-18 22:59 | PDOC ---
Exam Note: Ayo Note: Please also refer to the separate dictated note~for this date of service dictated separately.~Patient seen individually. Discussed the patient with Nursing staff reviewed the chart.~Reviewed interim history and current functioning. Reviewed vital signs,~Labs/ Radiology~and current medications noted below. Continue current treatment with the changes noted in the dictated addendum note Assessment: Vital Signs/I&O: Vital Signs Date Time Temp Pulse Resp B/P (MAP) Pulse Ox O2 Delivery O2 Flow Rate FiO2 08/18/18 20:01 64 120/69 08/18/18 15:53 97.0 16 100 08/18/18 05:51 Room Air I & O 08/17/18 08/17/18 08/18/18 14:59 22:59 06:59 Intake Total 600 ml 240 ml 120 ml Balance 600 ml 240 ml 120 ml Current Medications: I have reviewed the current psychotropics carefully including drug interactions. Risk benefit ratio favors no change other than as noted in my dictated progress note. Diagnosis: Problems: (1) Anxiety disorder (2) Dementia, vascular, with delusions (3) Dementia, vascular, with depression (4) Dementia in Alzheimer's disease with delusions (5) Dementia in Alzheimer's disease with depression (6) Impulse control disorder CONNIE CAIN MD Aug 18, 2018 22:59
[2018-08-19] MEDS: DIVALPROEX 125 MG CAP.SPRINK PO SCH ×3 (08:25→19:58)
[2018-08-19] MEDS: POLYETHYLENE GLYCOL 3350 17 GM PACKET. PO SCH (08:25)
[2018-08-19] MEDS: LACTOBACILLUS RHAMNOSUS GG 1 CAPSULE. PO SCH (08:25)
[2018-08-19] MEDS: CYANOCOBALAMIN (VITAMIN B-12) 1,000 MCG TABLET. PO SCH (08:26)
[2018-08-19] MEDS: PANTOPRAZOLE 40 MG TABLET. PO SCH (08:26)
[2018-08-19] MEDS: risperiDONE 0.25 MG TABLET. PO SCH ×3 (08:27→19:57)
[2018-08-19 08:28] VITALS: BP 113/64
[2018-08-19] MEDS: METOPROLOL TART IMMED RELEASE 25 MG TABLET PO SCH ×2 (08:30→19:57)
[2018-08-19 15:37] VITALS: BP 131/85
[2018-08-19] MEDS: MELATONIN 3 MG TABLET PO SCH (19:57)
[2018-08-19] MEDS: MIRTAZAPINE 15 MG TABLET PO SCH (19:57)
[2018-08-19] MEDS: traZODone 100 MG TABLET. PO SCH (19:57)
[2018-08-19 21:43] LABS: BILIRUBIN,URINE NEG (NEG); CLARITY,URINE TURBID; COLOR,URINE YELLOW; GLUCOSE,URINE NEG (NEG); NITRITE,URINE POS (NEG); UROBILINOGEN,URINE 0.2 mg/dL (0.2 mg/dL)
[2018-08-19 21:44] LABS: BACTERIA,URINE MOD /HPF (0-FEW); SQUAMOUS EPITHELIAL CELL,UR OCC /LPF; WBC,URINE TNTC /HPF (0-4)
--- NOTE | 2018-08-19 22:08 | PN ---
DATE: 08/17/2018 PSYCHIATRIC PROGRESS NOTE This is a late entry for 08/17/2018, covers elements not covered in my initial note. SUBJECTIVE: I met with the patient in the evening and staffed at a treatment team meeting with the entire team earlier in the day. The patient slept 5-1/4 hours, average 6-1/2 hours. Resistive to medications at night. Problems when she has to be changed by nursing staff. REVIEW OF SYSTEMS: No CV, , pulmonary, eye, ENT system symptoms on review. Reliability poor. MENTAL STATUS EXAM: Oriented to herself. Insight, judgment, recent and remote memory, attention, concentration, fund of knowledge poor, consistent with her diagnosis. LABORATORY DATA: Valproic acid level 50. PLAN: We will repeat CBC, CMP, valproic acid level. Adjust further as clinically indicated. Rest unchanged. MAN Malissa CAIN MD DR: SUNNY/oni JOB#: [id number] / [id number]
--- NOTE | 2018-08-19 22:30 | PDOC ---
Exam Note: Ayo Note: Please also refer to the separate dictated note~for this date of service dictated separately.~Patient seen individually. Discussed the patient with Nursing staff reviewed the chart.~Reviewed interim history and current functioning. Reviewed vital signs,~Labs/ Radiology~and current medications noted below. Continue current treatment with the changes noted in the dictated addendum note Assessment: Vital Signs/I&O: Vital Signs Date Time Temp Pulse Resp B/P (MAP) Pulse Ox O2 Delivery O2 Flow Rate FiO2 08/19/18 19:59 87 131/85 08/19/18 15:37 97.6 16 95 08/18/18 05:51 Room Air I & O 08/18/18 08/18/18 08/19/18 15:00 23:00 07:00 Intake Total 960 ml 480 ml 120 ml Balance 960 ml 480 ml 120 ml Labs: Laboratory Tests Test 08/19/18 21:05 Urine Collection Type Unknown Urine Color Yellow Urine Clarity Turbid Urine pH 6.5 Urine Specific [place] 1.020 Urine Protein Neg (NEG-TRACE) Urine Glucose (UA) Neg mg/dL (NEG) Urine Ketones (Stick) Neg mg/dL (NEG) Urine Blood Small (NEG) Urine Nitrite Pos (NEG) Urine Bilirubin Neg (NEG) Urine Urobilinogen Dipstick 0.2 mg/dL (0.2 mg/dL) Urine Leukocyte Esterase Large (NEG) Urine RBC 1-2 /HPF (0-2) Urine WBC Tntc /HPF (0-4) Urine Squamous Epithelial Cells Occ /LPF Urine Bacteria Mod /HPF (0-FEW) Current Medications: I have reviewed the current psychotropics carefully including drug interactions. Risk benefit ratio favors no change other than as noted in my dictated progress note. Diagnosis: Problems: (1) Anxiety disorder (2) Dementia, vascular, with delusions (3) Dementia, vascular, with depression (4) Dementia in Alzheimer's disease with delusions (5) Dementia in Alzheimer's disease with depression (6) Impulse control disorder CONNIE CAIN MD Aug 19, 2018 22:30
[2018-08-20 06:14] VITALS: BP 126/67
[2018-08-20] MEDS: DIVALPROEX 125 MG CAP.SPRINK PO SCH ×3 (08:27→19:30)
[2018-08-20] MEDS: LACTOBACILLUS RHAMNOSUS GG 1 CAPSULE. PO SCH (08:27)
[2018-08-20] MEDS: METOPROLOL TART IMMED RELEASE 25 MG TABLET PO SCH ×3 (08:27→20:26)
[2018-08-20] MEDS: CYANOCOBALAMIN (VITAMIN B-12) 1,000 MCG TABLET. PO SCH (08:28)
[2018-08-20] MEDS: POLYETHYLENE GLYCOL 3350 17 GM PACKET. PO SCH (08:28)
[2018-08-20] MEDS: PANTOPRAZOLE 40 MG TABLET. PO SCH (08:28)
[2018-08-20] MEDS: risperiDONE 0.25 MG TABLET. PO SCH ×3 (08:29→19:31)
[2018-08-20] MEDS: CHOLECALCIFEROL (VITAMIN D3) 50,000 UNIT CAPSULE PO SCH (12:33)
[2018-08-20 16:15] VITALS: BP 123/67
[2018-08-20] MEDS: hydrOXYzine HCL 25 MG TABLET PO PRN (16:56)
[2018-08-20] MEDS: traZODone 100 MG TABLET. PO SCH (19:30)
[2018-08-20] MEDS: MIRTAZAPINE 15 MG TABLET PO SCH (19:31)
[2018-08-20] MEDS: MELATONIN 3 MG TABLET PO SCH (19:31)
--- NOTE | 2018-08-20 22:43 | PDOC ---
Exam Note: Ayo Note: Please also refer to the separate dictated note~for this date of service dictated separately.~Patient seen individually. Discussed the patient with Nursing staff reviewed the chart.~Reviewed interim history and current functioning. Reviewed vital signs,~Labs/ Radiology~and current medications noted below. Continue current treatment with the changes noted in the dictated addendum note Assessment: Vital Signs/I&O: Vital Signs Date Time Temp Pulse Resp B/P (MAP) Pulse Ox O2 Delivery O2 Flow Rate FiO2 08/20/18 20:27 65 103/68 08/20/18 16:15 97.3 16 97 08/18/18 05:51 Room Air I & O 08/19/18 08/19/18 08/20/18 14:59 22:59 06:59 Intake Total 840 ml 600 ml 240 ml Balance 840 ml 600 ml 240 ml Current Medications: I have reviewed the current psychotropics carefully including drug interactions. Risk benefit ratio favors no change other than as noted in my dictated progress note. 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
--- NOTE | 2018-08-20 23:34 | PN ---
DATE: 08/18/2018 PSYCHIATRIC PROGRESS NOTE This is a late entry for 08/18/2018, covers elements not covered in my initial note. SUBJECTIVE: I met with the patient in the evening. The patient slept 7-1/2 hours previous night. She remains confused, but more redirectable, takes medications crushed. She has been wandering up and down the unit. REVIEW OF SYSTEMS: No CV, , eye, ENT or pulmonary system symptoms on review. Reliability poor. MENTAL STATUS EXAM: Oriented to herself. Insight, judgment, recent and remote memory, attention, concentration, fund of knowledge poor, consistent with her diagnosis mentioned in my initial note. PLAN: No change from initial note. CONNIE CAIN MD DR: SUNNY/oni JOB#: [id number] / [id number]
[2018-08-21] MEDS ORDERED: DIVA125C2 PO ×2 (01:08→01:09)
[2018-08-21] MEDS ORDERED: ACET325T9 PO (01:08)
[2018-08-21] MEDS ORDERED: MAGN2400 PO (01:10)
[2018-08-21] MEDS ORDERED: MAG355OR17 PO (01:10)
--- NOTE | 2018-08-21 01:10 | PN ---
DATE: 08/19/2018 PSYCHIATRIC PROGRESS NOTE This late entry 08/19/2018 covers the elements not covered in my initial note. SUBJECTIVE: I met with the patient in the evening. The patient slept 7-1/2 hours previous night. The patient remains confused. She was noted to have foul-smelling urine. We will check a UA. REVIEW OF SYSTEMS: No CV, , pulmonary, eye, ENT system symptoms on review. Reliability poor. MENTAL STATUS EXAM: Oriented to herself. Insight, judgment, recent and remote memory, attention, concentration, fund of knowledge poor, consistent with her diagnosis mentioned in my initial note. PLAN: No change from initial note. MAN Malissa CAIN MD DR: SUNNY/oni JOB#: [id number] / [id number]
[2018-08-21] MEDS ORDERED: METH29OI TP (01:11)
[2018-08-21] MEDS ORDERED: FLUV50TA2 PO (01:12)
[2018-08-21] MEDS ORDERED: OLAN5TAB5 PO (01:12)
[2018-08-21] MEDS ORDERED: HYDR25TA PO (01:13)
[2018-08-21] MEDS ORDERED: RISP0.5T3 PO (01:14)
[2018-08-21] MEDS ORDERED: RISP0.253 PO (01:16)
[2018-08-21] MEDS ORDERED: TRAZ-86 PO ×2 (01:16)
[2018-08-21 06:05] VITALS: BP 147/77
[2018-08-21] MEDS: LACTOBACILLUS RHAMNOSUS GG 1 CAPSULE. PO SCH (09:20)
[2018-08-21] MEDS: METOPROLOL TART IMMED RELEASE 25 MG TABLET PO SCH (09:21)
[2018-08-21] MEDS: PANTOPRAZOLE 40 MG TABLET. PO SCH (09:21)
[2018-08-21] MEDS: CYANOCOBALAMIN (VITAMIN B-12) 1,000 MCG TABLET. PO SCH (09:21)
[2018-08-21] MEDS: POLYETHYLENE GLYCOL 3350 17 GM PACKET. PO SCH (09:21)
[2018-08-21] MEDS: DIVALPROEX 125 MG CAP.SPRINK PO SCH ×2 (09:21→12:32)
[2018-08-21 09:23] VITALS: BP 147/77
[2018-08-21] MEDS: risperiDONE 0.25 MG TABLET. PO SCH ×2 (09:23→12:32)
[2018-08-21] MEDS: hydrOXYzine HCL 25 MG TABLET PO PRN (13:22)
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
--- NOTE | 2018-08-21 18:17 | PDOC ---
Exam Note: Ayo Note: Please also refer to the separate dictated note~for this date of service dictated separately.~Patient seen individually. Discussed the patient with Nursing staff reviewed the chart.~Reviewed interim history and current functioning. Reviewed vital signs,~Labs/ Radiology~and current medications noted below. Continue current treatment with the changes noted in the dictated addendum note Assessment: Vital Signs/I&O: Vital Signs Date Time Temp Pulse Resp B/P (MAP) Pulse Ox O2 Delivery O2 Flow Rate FiO2 08/21/18 09:23 98 147/77 08/21/18 06:05 97.6 20 96 08/18/18 05:51 Room Air I & O 08/20/18 08/20/18 08/21/18 15:00 23:00 07:00 Intake Total 720 ml 240 ml 240 ml Balance 720 ml 240 ml 240 ml Current Medications: I have reviewed the current psychotropics carefully including drug interactions. Risk benefit ratio favors no change other than as noted in my dictated progress note. 

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
== END 2018-08-21 14:45 | DRG 57 ==
LOC: GEROPSY 16:28
PROVIDERS: ADMIT Psychiatry & Neurology Psychiatry; ATTEND Psychiatry & Neurology Psychiatry
DX: G30.9 Alzheimer's disease, unspecified (principal); N39.0 Urinary tract infection, site not specified; F01.50 Vascular dementia, unspecified severity, without behavioral disturbance, psychotic disturbance, mood disturbance, and anxiety; F02.80 Dementia in other diseases classified elsewhere, unspecified severity, without behavioral disturbance, psychotic disturbance, mood disturbance, and anxiety; F17.210 Nicotine dependence, cigarettes, uncomplicated; F32.9 Major depressive disorder, single episode, unspecified; F41.9 Anxiety disorder, unspecified; F42.9 Obsessive-compulsive disorder, unspecified; F48.2 Pseudobulbar affect; F63.9 Impulse disorder, unspecified; G89.29 Other chronic pain; I25.10 Atherosclerotic heart disease of native coronary artery without angina pectoris; I49.5 Sick sinus syndrome; K21.9 Gastro-esophageal reflux disease without esophagitis; Z66 Do not resuscitate; I25.2 Old myocardial infarction; Z79.899 Other long term (current) drug therapy; Z80.0 Family history of malignant neoplasm of digestive organs; Z85.3 Personal history of malignant neoplasm of breast; Z90.710 Acquired absence of both cervix and uterus; Z95.0 Presence of cardiac pacemaker
CPT/HCPCS: 36415; 70450; 80053; 80061; 80164; 81001; 82306; 83036; 83540; 83550; 83735; 84436; 84443; 84480; 85025; 86592; 87086